=== PATIENT | male | born 1960 | race Two or more races ===

== ENCOUNTER 2017-12-17 16:14 | Observation (INO) | payer OTHER ==
[~2017-12-17] VITALS: Ht 157.5 cm; Wt 45.4 kg
[~2017-12-17 16:14] MED LIST: DULA1INJ SC
[2017-12-17] MEDS ORDERED: SODIUM CHLORIDE 0.9% 1,000 ML IVB ONE (17:36)
[2017-12-17 17:44] LABS: Basophils # (auto) 0 uL; Basophils % (auto) 0.7 % (0.0-2.0); Eosinophils # (auto) 0.1 uL; Eosinophils % (auto) 1.2 % (0.0-7.0); Hematocrit 40.2 % (41.0-53.0); Hemoglobin 13.7 g/dL (13.5-17.5); Lymphocytes # (auto) 1.7 uL; Lymphocytes % (auto) 34.8 % (10.0-50.0); Mean Corpuscular Hemoglobin 28.8 pg (28.0-32.0); Mean Corpuscular Hgb Conc. 34.2 g/dL (32.0-36.0); Mean Corpuscular Volume 84.4 fL (80.0-100.0); Monocytes # (auto) 0.4 uL; Monocytes % (auto) 8.5 % (0.0-12.0); Neutrophils # (auto) 2.8 uL; Neutrophils % (auto) 54.8 % (37.0-80.0); Nucleated Red Blood Cells % 0.2 %; Platelet Count (auto) 208 10^3/uL (140-450); Red Blood Cells 4.76 10^6/uL (4.5-5.90); Red Cell Distribution Width 14.1 % (11.8-14.3)
[2017-12-17 18:14] LABS: Partial Thromboplastin Time 27.5 sec (23.78-33.04); Prothrombin Time 10.7 sec (9.27-12.13)
[2017-12-17 18:24] LABS: Albumin 3.5 g/dL (3.4-5.0); BUN/Creatinine Ratio 21.8; Bilirubin, Total 0.4 mg/dL (0.2-1.0); Calcium 8.9 mg/dL (8.5-10.1); Potassium 4.4 mmol/L (3.5-5.1); Total Protein 7.5 g/dL (6.4-8.2)
[2017-12-17] MEDS ORDERED: InsuLIN REG 1unit/0.01ml Soln (100units/ml) IV ONE (21:15)
[2017-12-17 22:01] VITALS: BP 107/74
[2017-12-17] MEDS ORDERED: ACETAMINOPHEN 325 MG TAB PO ONE (23:00)
== END 2017-12-17 22:42 | disposition home or self-care (01) | DRG 639 ==
LOC: EDBD → ER 16:14 → OVERFLOW 16:15 → ER 22:42
PROVIDERS: ADMIT Family Medicine; ATTEND Family Medicine
DX: E10.65 Type 1 diabetes mellitus with hyperglycemia (principal); I10 Essential (primary) hypertension; E78.5 Hyperlipidemia, unspecified; Z91.19 Patient's noncompliance with other medical treatment and regimen
CPT/HCPCS: 36415; 70450; 71045; 80053; 82962; 83735; 84484; 85025; 85610; 85730; 93005; 96360; 96372; 99285; G0378; J1815; J7030

== ENCOUNTER 2018-01-26 18:37 | Emergency (ER) | payer OTHER ==
[~2018-01-26] VITALS: Ht 157.5 cm; Wt 46.3 kg
[2018-01-26 19:41] LABS: Basophils # (auto) 0 uL; Basophils % (auto) 0.6 % (0.0-2.0); Eosinophils # (auto) 0 uL; Eosinophils % (auto) 0.8 % (0.0-7.0); Hematocrit 35.6 % (41.0-53.0); Hemoglobin 11.9 g/dL (13.5-17.5); Lymphocytes # (auto) 1.8 uL; Lymphocytes % (auto) 33.3 % (10.0-50.0); Mean Corpuscular Hemoglobin 28.3 pg (28.0-32.0); Mean Corpuscular Hgb Conc. 33.5 g/dL (32.0-36.0); Mean Corpuscular Volume 84.5 fL (80.0-100.0); Monocytes # (auto) 0.4 uL; Neutrophils # (auto) 3.1 uL; Neutrophils % (auto) 57.3 % (37.0-80.0); Nucleated Red Blood Cells % 0.1 %; Platelet Count (auto) 225 10^3/uL (140-450); Red Blood Cells 4.21 10^6/uL (4.5-5.90); Red Cell Distribution Width 14.5 % (11.8-14.3); White Blood Cell 5.4 10^3/uL (4.4-10.8)
[2018-01-26 19:50] LABS: Albumin 3.2 g/dL (3.4-5.0); BUN/Creatinine Ratio 29.7; Calcium 8.7 mg/dL (8.5-10.1); Potassium 4.4 mmol/L (3.5-5.1)
[2018-01-26 19:52] LABS: Bilirubin, Total 0.2 mg/dL (0.2-1.0); Total Protein 8.2 g/dL (6.4-8.2)
[2018-01-26] MEDS ORDERED: VANCOMYCIN 1GM/250ML 250 ML IV ONE (22:30)
[2018-01-26] MEDS ORDERED: SODIUM CHLORIDE 0.9% 1,000 ML IV ONE (22:30)
[2018-01-26] MEDS ORDERED: cefTRIAXone 1GM/10ml IVPUSH 10 ML IV ONE (22:30)
[2018-01-26] MEDS ORDERED: HYDROmorphone HCL 2 MG/ML VL IV ONE (22:30)
[2018-01-26] MEDS ORDERED: ONDANSETRON HCL 4 MG/2 ML VIAL IV ONE (22:30)
[2018-01-26] MEDS ORDERED: InsuLIN REG 1unit/0.01ml Soln (100units/ml) IV ONE (22:30)
[2018-01-27 02:11] VITALS: BP 111/80
== END 2018-01-27 00:14 | disposition short-term general hospital (02) ==
LOC: ER 18:37
DX: E11.52 Type 2 diabetes mellitus with diabetic peripheral angiopathy with gangrene (principal); A48.0 Gas gangrene; E11.65 Type 2 diabetes mellitus with hyperglycemia; N28.9 Disorder of kidney and ureter, unspecified; E87.1 Hypo-osmolality and hyponatremia; E78.5 Hyperlipidemia, unspecified; I10 Essential (primary) hypertension
CPT/HCPCS: 36415; 73630; 73700; 80053; 82962; 85025; 87040; 93005; 96365; 96366; 96375; 99285; J0696; J1170; J1815; J2405; J3370

== ENCOUNTER 2020-07-21 12:24 | Inpatient (IN) | payer OTHER ==
[~2020-07-21] VITALS: Ht 157.5 cm; Wt 62.0 kg
[2020-07-21] MEDS ORDERED: SODIUM CHLORIDE 0.9% 1,000 ML IVB ONE (13:30)
[2020-07-21 13:53] LABS: Eosinophils # (auto) 0.1 10 ^3/uL (0-0.8); Red Cell Distribution Width 18.5 % (11.8-14.3); White Blood Cell 6.1 10^3/uL (4.4-10.8)
[2020-07-21 13:55] LABS: Basophils # (auto) 0.1 10 ^3/uL (0-0.2); Basophils % (auto) 0.9 % (0.0-2.0); Eosinophils % (auto) 1.4 % (0.0-7.0); Hemoglobin 8.7 g/dL (13.5-17.5); Lymphocytes # (auto) 1.7 10 ^3/uL (0.4-5.4); Lymphocytes % (auto) 28.7 % (10.0-50.0); Mean Corpuscular Hemoglobin 25.5 pg (28.0-32.0); Mean Corpuscular Hgb Conc. 32.1 g/dL (32.0-36.0); Mean Corpuscular Volume 79.6 fL (80.0-100.0); Monocytes # (auto) 0.5 10 ^3/uL (0-1.3); Monocytes % (auto) 7.6 % (0.0-12.0); Neutrophils # (auto) 3.7 10 ^3/uL (1.6-8.6); Neutrophils % (auto) 61.4 % (37.0-80.0); Nucleated Red Blood Cells % 0.1 %
[2020-07-21 14:08] LABS: INR 1.2 (0.9-1.15); Partial Thromboplastin Time 31.6 sec (23.0-31.2)
[2020-07-21 14:10] LABS: Albumin 2.7 g/dL (3.4-5.0); Calcium 8.7 mg/dL (8.5-10.1); Potassium 3.8 mmol/L (3.5-5.1)
[2020-07-21 14:16] LABS: BUN/Creatinine Ratio 30.4; Bilirubin, Total 0.4 mg/dL (0.2-1.0); Total Protein 7.5 g/dL (6.4-8.2)
[2020-07-21 14:35] LABS: Magnesium 2.2 mg/dL (1.6-2.6)
[2020-07-21] MEDS ORDERED: AZITHROMYCIN 500MG/ 250ML 250 ML IV ONE (14:45)
[2020-07-21 15:28] LABS: Urine Bacteria NONE SEEN /hpf (None Seen); Urine Blood Negative /uL (Negative); Urine Specific Gravity 1.031 (1.001-1.035); Urine WBC <1 /hpf (0 - 3)
[2020-07-21] MEDS ORDERED: DEXTROSE (50%) 50ML SYRG IV PRN (16:30)
[2020-07-21] MEDS ORDERED: VANCOMYCIN PER PHARMACY 0 MG IV SCH (16:30)
[2020-07-21] MEDS ORDERED: NITROGLYCERIN 0.4 MG SL TAB SL PRN (16:30)
[2020-07-21] MEDS ORDERED: MORPHINE SULFATE INJECTION 2 MG/ML SYRG IV PRN (16:30)
[2020-07-21] MEDS ORDERED: IOPAMIDOL 76 % (ISOVUE-370) 100ML BTL IV ONE (16:36)
[2020-07-21] MEDS ORDERED: VANCOMYCIN 1GM/250ML 250 ML IV ONE (16:45)
[2020-07-21] MEDS: ACCU-CHEK COMFORT CURVE STRIP VI SCH ×2 (18:14→22:00)
[2020-07-21] MEDS: ENOXAPARIN SOD 40 MG/0.4 ML SYRINGE SC SCH (18:22)
[2020-07-21] MEDS: InsuLIN REG 1unit/0.01ml Soln (100units/ml) SC SCH ×2 (18:23→22:00)
[2020-07-21] MEDS: ALBUTEROL SULF 2.5 MG/0.5ML(0.5%) NEB SOLN NEB SCH (18:25)
[2020-07-21] MEDS: IPRATROPIUM BROM 0.5 MG/2.5ML INH SOL NEB SCH (18:25)
[2020-07-21 18:53] VITALS: BP 105/73
[2020-07-21] MEDS: MORPHINE SULFATE INJECTION 2 MG/ML SYRG IV PRN (18:58)
[2020-07-21] MEDS: ONDANSETRON HCL 4 MG/2 ML VIAL IV PRN (18:58)
[2020-07-21 19:37] VITALS: BP 105/73
[2020-07-21 20:00] VITALS: BP 116/80
[2020-07-21 21:41] VITALS: BP 115/78
[2020-07-21] MEDS: VANCOMYCIN 750mg/250ml 250 ML IV SCH (22:44)
[2020-07-22] MEDS: MORPHINE SULFATE INJECTION 2 MG/ML SYRG IV PRN ×3 (00:06→13:50)
[2020-07-22] MEDS: ONDANSETRON HCL 4 MG/2 ML VIAL IV PRN ×2 (00:06→04:35)
[2020-07-22 00:50] VITALS: BP 115/78
[2020-07-22] MEDS ORDERED: METF-370 PO (01:44)
[2020-07-22 04:59] VITALS: BP 117/95
[2020-07-22] MEDS: IPRATROPIUM BROM 0.5 MG/2.5ML INH SOL NEB SCH ×3 (06:00→19:18)
[2020-07-22] MEDS: ALBUTEROL SULF 2.5 MG/0.5ML(0.5%) NEB SOLN NEB SCH ×3 (06:00→19:18)
[2020-07-22 06:15] LABS: Eosinophils # (auto) 0 10 ^3/uL (0-0.8); Hematocrit 27.6 % (41.0-53.0); Lymphocytes # (auto) 1.4 10 ^3/uL (0.4-5.4); Monocytes # (auto) 0.6 10 ^3/uL (0-1.3); Neutrophils # (auto) 5.6 10 ^3/uL (1.6-8.6); Neutrophils % (auto) 73.3 % (37.0-80.0)
[2020-07-22 06:18] LABS: Basophils # (auto) 0.1 10 ^3/uL (0-0.2); Basophils % (auto) 0.7 % (0.0-2.0); Eosinophils % (auto) 0.2 % (0.0-7.0); Lymphocytes % (auto) 18.4 % (10.0-50.0); Mean Corpuscular Hemoglobin 25.8 pg (28.0-32.0); Mean Corpuscular Hgb Conc. 32.5 g/dL (32.0-36.0); Mean Corpuscular Volume 79.5 fL (80.0-100.0); Monocytes % (auto) 7.4 % (0.0-12.0); Nucleated Red Blood Cells % 0.1 %; Red Blood Cells 3.48 10^6/uL (4.5-5.90); Red Cell Distribution Width 18.4 % (11.8-14.3); White Blood Cell 7.6 10^3/uL (4.4-10.8)
[2020-07-22 06:21] LABS: BUN/Creatinine Ratio 28.4; Calcium 8.8 mg/dL (8.5-10.1); Potassium 4.2 mmol/L (3.5-5.1)
[2020-07-22] MEDS: ACCU-CHEK COMFORT CURVE STRIP VI SCH ×4 (06:37→21:16)
[2020-07-22] MEDS: InsuLIN REG 1unit/0.01ml Soln (100units/ml) SC SCH ×4 (06:38→21:16)
[2020-07-22 09:00] VITALS: BP 138/84
[2020-07-22] MEDS: VANCOMYCIN 750mg/250ml 250 ML IV SCH ×2 (09:35→21:11)
[2020-07-22] MEDS: ENOXAPARIN SOD 40 MG/0.4 ML SYRINGE SC SCH (09:35)
[2020-07-22] MEDS ORDERED: FUROSEMIDE 20 MG/2 ML VIAL IV ONE (11:00)
[2020-07-22 16:31] VITALS: BP 133/86
[2020-07-22] MEDS: PIPERACILLIN-TAZOB 3.375GM 100 ML IV SCH ×2 (17:51→23:11)
[2020-07-22] MEDS: ACETAMINOPHEN 500 MG TAB PO PRN (19:19)
[2020-07-22 22:00] VITALS: BP 134/86
[2020-07-23] MEDS: ACETAMINOPHEN 500 MG TAB PO PRN (03:40)
[2020-07-23] MEDS: PIPERACILLIN-TAZOB 3.375GM 100 ML IV SCH ×4 (04:53→23:35)
[2020-07-23 05:16] VITALS: BP 138/84
[2020-07-23 05:29] LABS: Eosinophils # (auto) 0.1 10 ^3/uL (0-0.8); Mean Corpuscular Volume 78.5 fL (80.0-100.0); Monocytes # (auto) 0.5 10 ^3/uL (0-1.3); Red Blood Cells 3.37 10^6/uL (4.5-5.90)
[2020-07-23 05:31] LABS: Basophils # (auto) 0.1 10 ^3/uL (0-0.2); Basophils % (auto) 0.9 % (0.0-2.0); Eosinophils % (auto) 1.3 % (0.0-7.0); Hematocrit 26.4 % (41.0-53.0); Hemoglobin 8.8 g/dL (13.5-17.5); Lymphocytes # (auto) 1.2 10 ^3/uL (0.4-5.4); Mean Corpuscular Hemoglobin 26.2 pg (28.0-32.0); Mean Corpuscular Hgb Conc. 33.4 g/dL (32.0-36.0); Monocytes % (auto) 9.2 % (0.0-12.0); Neutrophils # (auto) 3.9 10 ^3/uL (1.6-8.6); Neutrophils % (auto) 67.6 % (37.0-80.0); Nucleated Red Blood Cells % 0.1 %; Red Cell Distribution Width 18.1 % (11.8-14.3); White Blood Cell 5.8 10^3/uL (4.4-10.8)
[2020-07-23] MEDS: InsuLIN REG 1unit/0.01ml Soln (100units/ml) SC SCH ×4 (05:31→22:12)
[2020-07-23] MEDS: ACCU-CHEK COMFORT CURVE STRIP VI SCH ×4 (05:31→22:12)
[2020-07-23 05:43] LABS: BUN/Creatinine Ratio 31.4; Calcium 8.9 mg/dL (8.5-10.1); Potassium 3.6 mmol/L (3.5-5.1)
[2020-07-23] MEDS: IPRATROPIUM BROM 0.5 MG/2.5ML INH SOL NEB SCH ×3 (06:55→18:21)
[2020-07-23] MEDS: ALBUTEROL SULF 2.5 MG/0.5ML(0.5%) NEB SOLN NEB SCH ×3 (06:55→18:21)
[2020-07-23] MEDS: ENOXAPARIN SOD 40 MG/0.4 ML SYRINGE SC SCH (10:00)
[2020-07-23] MEDS: HYDROcodone-ACET 5/325MG TAB PO PRN ×2 (10:37→18:30)
[2020-07-23] MEDS: VANCOMYCIN 1GM/250ML 250 ML IV SCH ×2 (10:59→20:34)
[2020-07-23] MEDS: FUROSEMIDE 20 MG/2 ML VIAL IV SCH (10:59)
[2020-07-23] MEDS ORDERED: LISINOPRIL 5 MG TAB PO ONE (11:00)
[2020-07-23] MEDS ORDERED: CARVEDILOL 3.125 MG TAB PO ONE (11:00)
[2020-07-23] MEDS ORDERED: ASPirin 81 mg TAB PO ONE (11:00)
[2020-07-23 22:00] VITALS: BP 132/88
[2020-07-23] MEDS: ATORVASTATIN 20 MG TAB PO SCH (22:12)
[2020-07-23] MEDS: CARVEDILOL 3.125 MG TAB PO SCH (22:33)
[2020-07-24] MEDS: ALBUTEROL SULF 2.5 MG/0.5ML(0.5%) NEB SOLN NEB SCH ×3 (04:08→18:09)
[2020-07-24] MEDS: IPRATROPIUM BROM 0.5 MG/2.5ML INH SOL NEB SCH ×3 (04:08→18:09)
[2020-07-24] MEDS: PIPERACILLIN-TAZOB 3.375GM 100 ML IV SCH ×4 (04:58→23:23)
[2020-07-24] MEDS: InsuLIN REG 1unit/0.01ml Soln (100units/ml) SC SCH ×4 (05:37→20:37)
[2020-07-24] MEDS: ACCU-CHEK COMFORT CURVE STRIP VI SCH ×4 (05:37→20:37)
[2020-07-24] MEDS: HYDROcodone-ACET 5/325MG TAB PO PRN ×2 (05:42→22:17)
[2020-07-24 06:42] LABS: Basophils # (auto) 0.1 10 ^3/uL (0-0.2); Basophils % (auto) 0.9 % (0.0-2.0); Eosinophils # (auto) 0.2 10 ^3/uL (0-0.8); Monocytes # (auto) 0.6 10 ^3/uL (0-1.3); Nucleated Red Blood Cells % 0.1 %
[2020-07-24 06:44] LABS: Eosinophils % (auto) 3.2 % (0.0-7.0); Hematocrit 26.8 % (41.0-53.0); Hemoglobin 8.7 g/dL (13.5-17.5); Lymphocytes # (auto) 1.6 10 ^3/uL (0.4-5.4); Lymphocytes % (auto) 23.4 % (10.0-50.0); Mean Corpuscular Hemoglobin 25.6 pg (28.0-32.0); Mean Corpuscular Hgb Conc. 32.6 g/dL (32.0-36.0); Mean Corpuscular Volume 78.4 fL (80.0-100.0); Monocytes % (auto) 8.5 % (0.0-12.0); Neutrophils # (auto) 4.3 10 ^3/uL (1.6-8.6); Red Blood Cells 3.41 10^6/uL (4.5-5.90); Red Cell Distribution Width 18.5 % (11.8-14.3); White Blood Cell 6.8 10^3/uL (4.4-10.8)
[2020-07-24 07:00] VITALS: BP 147/87
[2020-07-24 08:36] VITALS: BP 125/83
[2020-07-24] MEDS: ENOXAPARIN SOD 40 MG/0.4 ML SYRINGE SC SCH (09:28)
[2020-07-24] MEDS: VANCOMYCIN 1GM/250ML 250 ML IV SCH ×2 (09:58→20:45)
[2020-07-24] MEDS: FUROSEMIDE 20 MG/2 ML VIAL IV SCH (09:58)
[2020-07-24] MEDS: LISINOPRIL 5 MG TAB PO SCH (09:59)
[2020-07-24] MEDS: ASPirin 81 mg TAB PO SCH (10:00)
[2020-07-24] MEDS: CARVEDILOL 3.125 MG TAB PO SCH ×2 (10:01→22:09)
[2020-07-24] MEDS: guaiFENesin-DM 100/10mg/5ml SYR PO PRN (10:41)
[2020-07-24] MEDS ORDERED: fentaNYL CITRATE 100 MCG/2 ML VL IV ONE (12:15)
[2020-07-24] MEDS ORDERED: diphenhdrAMINE HCL 50 MG/1 ML VL IV ONE (12:15)
[2020-07-24] MEDS ORDERED: MIDAZOLAM HCL 2MG/2ML 2ml VIAL (1mg/ml) IV ONE (12:15)
[2020-07-24] MEDS ORDERED: ONDANSETRON HCL 4 MG/2 ML VIAL IV ONE (12:30)
[2020-07-24] MEDS ORDERED: LIDOCAINE VISCOUS 2% 15ML UD ONE (12:43)
[2020-07-24 12:44] VITALS: BP 131/87
[2020-07-24 16:43] VITALS: BP 119/76
[2020-07-24] MEDS: ATORVASTATIN 20 MG TAB PO SCH (20:45)
[2020-07-24] MEDS: DAKINS QUARTER STR 0.125% (NaHypochlorite) 473 ML TOPICAL SOL TOP SCH (20:45)
[2020-07-24 21:06] VITALS: BP 119/76
[2020-07-24 22:00] VITALS: BP 130/77
[2020-07-25] MEDS: ALBUTEROL SULF 2.5 MG/0.5ML(0.5%) NEB SOLN NEB SCH ×4 (02:20→19:11)
[2020-07-25] MEDS: IPRATROPIUM BROM 0.5 MG/2.5ML INH SOL NEB SCH ×4 (02:21→19:11)
[2020-07-25 05:29] VITALS: BP 138/88
[2020-07-25 06:10] LABS: Basophils # (auto) 0.1 10 ^3/uL (0-0.2); Basophils % (auto) 0.9 % (0.0-2.0); Eosinophils # (auto) 0.3 10 ^3/uL (0-0.8); Lymphocytes # (auto) 1.7 10 ^3/uL (0.4-5.4); Monocytes # (auto) 0.6 10 ^3/uL (0-1.3)
[2020-07-25 06:12] LABS: Eosinophils % (auto) 5.1 % (0.0-7.0); Hematocrit 25.9 % (41.0-53.0); Hemoglobin 8.4 g/dL (13.5-17.5); Lymphocytes % (auto) 28.4 % (10.0-50.0); Mean Corpuscular Hemoglobin 25.4 pg (28.0-32.0); Mean Corpuscular Hgb Conc. 32.5 g/dL (32.0-36.0); Mean Corpuscular Volume 78.1 fL (80.0-100.0); Monocytes % (auto) 10.2 % (0.0-12.0); Neutrophils # (auto) 3.3 10 ^3/uL (1.6-8.6); Neutrophils % (auto) 55.4 % (37.0-80.0); Nucleated Red Blood Cells % 0.1 %; Red Blood Cells 3.32 10^6/uL (4.5-5.90); Red Cell Distribution Width 18.3 % (11.8-14.3); White Blood Cell 5.9 10^3/uL (4.4-10.8)
[2020-07-25] MEDS: ACCU-CHEK COMFORT CURVE STRIP VI SCH ×4 (06:14→22:06)
[2020-07-25] MEDS: InsuLIN REG 1unit/0.01ml Soln (100units/ml) SC SCH ×4 (06:18→22:00)
[2020-07-25] MEDS: PIPERACILLIN-TAZOB 3.375GM 100 ML IV SCH ×4 (06:19→23:05)
[2020-07-25 06:20] LABS: INR 1.28 (0.9-1.15)
[2020-07-25 06:23] LABS: Potassium 3.8 mmol/L (3.5-5.1)
[2020-07-25 06:32] LABS: BUN/Creatinine Ratio 20.3; Calcium 8.8 mg/dL (8.5-10.1)
[2020-07-25] MEDS ORDERED: IODIXANOL 320MG/ML 100ML BTL IV ONE ×2 (07:37→09:20)
[2020-07-25] MEDS ORDERED: LIDOCAINE 2%HCL (LOCAL ANESTH.) INJ 20ML MDV ONE (07:37)
[2020-07-25] MEDS ORDERED: ANGIOMAX 250 MG VIAL IV ONE ×2 (07:54→09:56)
[2020-07-25] MEDS ORDERED: MIDAZOLAM HCL 2MG/2ML 2ml VIAL (1mg/ml) ONE (07:55)
[2020-07-25] MEDS ORDERED: fentaNYL CITRATE 100 MCG/2 ML VL ONE (07:55)
[2020-07-25] MEDS ORDERED: SODIUM CHL 0.9% 50 ML ONE ×2 (07:55→09:56)
[2020-07-25] MEDS: ASPirin 81 mg TAB PO SCH (10:00)
[2020-07-25] MEDS: ENOXAPARIN SOD 40 MG/0.4 ML SYRINGE SC SCH (10:00)
[2020-07-25] MEDS ORDERED: hydrALAZINE HCL 20 MG/ML VL ONE (10:36)
[2020-07-25] MEDS ORDERED: CLOPIDOGREL 300 MG TAB ONE (11:08)
[2020-07-25 13:00] VITALS: BP 146/94
[2020-07-25] MEDS ORDERED: ACETAMINOPHEN 500 MG TAB PO PRN (13:00)
[2020-07-25] MEDS ORDERED: ONDANSETRON HCL 4 MG/2 ML VIAL IV PRN (13:00)
[2020-07-25] MEDS: VANCOMYCIN 1GM/250ML 250 ML IV SCH ×2 (13:11→22:04)
[2020-07-25] MEDS: FUROSEMIDE 20 MG/2 ML VIAL IV SCH (13:11)
[2020-07-25] MEDS: LISINOPRIL 5 MG TAB PO SCH (13:12)
[2020-07-25] MEDS: CARVEDILOL 3.125 MG TAB PO SCH ×2 (13:12→22:05)
[2020-07-25] MEDS: DAKINS QUARTER STR 0.125% (NaHypochlorite) 473 ML TOPICAL SOL TOP SCH ×2 (13:12→22:06)
[2020-07-25] MEDS: SODIUM CHLOR 0.9% PF (SALINE LOCK) 10ML VIAL/SYR IV SCH ×2 (13:13→22:04)
[2020-07-25] MEDS: HYDROcodone-ACET 5/325MG TAB PO PRN (16:47)
[2020-07-25 17:00] VITALS: BP 131/89
[2020-07-25] MEDS: guaiFENesin-DM 100/10mg/5ml SYR PO PRN (17:19)
[2020-07-25 22:00] VITALS: BP 131/89
[2020-07-25] MEDS: ATORVASTATIN 20 MG TAB PO SCH (22:05)
[2020-07-26] MEDS: ALBUTEROL SULF 2.5 MG/0.5ML(0.5%) NEB SOLN NEB SCH ×4 (01:13→17:52)
[2020-07-26] MEDS: IPRATROPIUM BROM 0.5 MG/2.5ML INH SOL NEB SCH ×4 (01:14→17:52)
[2020-07-26] MEDS: PIPERACILLIN-TAZOB 3.375GM 100 ML IV SCH ×3 (05:21→17:57)
[2020-07-26] MEDS: SODIUM CHLOR 0.9% PF (SALINE LOCK) 10ML VIAL/SYR IV SCH ×3 (05:21→23:04)
[2020-07-26 05:27] VITALS: BP 138/84
[2020-07-26 05:46] LABS: Basophils # (auto) 0 10 ^3/uL (0-0.2); Eosinophils # (auto) 0.2 10 ^3/uL (0-0.8); Lymphocytes # (auto) 1.3 10 ^3/uL (0.4-5.4); Mean Corpuscular Hemoglobin 25.7 pg (28.0-32.0); Neutrophils # (auto) 3.4 10 ^3/uL (1.6-8.6); Red Blood Cells 3.51 10^6/uL (4.5-5.90); White Blood Cell 5.5 10^3/uL (4.4-10.8)
[2020-07-26 05:48] LABS: Basophils % (auto) 0.8 % (0.0-2.0); Eosinophils % (auto) 4.1 % (0.0-7.0); Hematocrit 27.3 % (41.0-53.0); Mean Corpuscular Hgb Conc. 33.1 g/dL (32.0-36.0); Mean Corpuscular Volume 77.6 fL (80.0-100.0); Monocytes # (auto) 0.5 10 ^3/uL (0-1.3); Monocytes % (auto) 9.9 % (0.0-12.0); Neutrophils % (auto) 62.2 % (37.0-80.0); Nucleated Red Blood Cells % 0.1 %; Red Cell Distribution Width 17.9 % (11.8-14.3)
[2020-07-26] MEDS: InsuLIN REG 1unit/0.01ml Soln (100units/ml) SC SCH ×4 (06:11→22:35)
[2020-07-26] MEDS: ACCU-CHEK COMFORT CURVE STRIP VI SCH ×4 (06:12→22:00)
[2020-07-26 06:13] LABS: Potassium 3.6 mmol/L (3.5-5.1)
[2020-07-26 06:19] LABS: Calcium 8.8 mg/dL (8.5-10.1)
[2020-07-26 08:00] VITALS: BP 150/81
[2020-07-26] MEDS: ASPirin 81 mg TAB PO SCH (10:00)
[2020-07-26] MEDS: DAKINS QUARTER STR 0.125% (NaHypochlorite) 473 ML TOPICAL SOL TOP SCH ×2 (10:00→22:00)
[2020-07-26] MEDS: ENOXAPARIN SOD 40 MG/0.4 ML SYRINGE SC SCH (10:00)
[2020-07-26] MEDS: VANCOMYCIN 1GM/250ML 250 ML IV SCH ×2 (10:04→23:03)
[2020-07-26] MEDS: FUROSEMIDE 20 MG/2 ML VIAL IV SCH (10:06)
[2020-07-26] MEDS: LISINOPRIL 5 MG TAB PO SCH (10:07)
[2020-07-26] MEDS: CARVEDILOL 3.125 MG TAB PO SCH ×2 (10:07→23:04)
[2020-07-26] MEDS ORDERED: ceFAZolin 1GM VL ONE ×2 (11:38→12:18)
[2020-07-26] MEDS ORDERED: NEOMYCIN-BACITRACIN-POLYM 15GM TOP OINT TOP ONE (11:38)
[2020-07-26] MEDS ORDERED: PHENYLEPHRINE HCL 10 MG/ML VL IV ONE (12:17)
[2020-07-26] MEDS ORDERED: SUCCINYLCHOLINE CHLORIDE 20 MG/ML 10ML VIAL IV ONE (12:17)
[2020-07-26] MEDS ORDERED: fentaNYL CITRATE 100 MCG/2 ML VL ONE (12:28)
[2020-07-26] MEDS ORDERED: MEPERIDINE HCL (50 MG/ML) 1 ML VIAL ONE (12:28)
[2020-07-26] MEDS ORDERED: MIDAZOLAM HCL 2MG/2ML 2ml VIAL (1mg/ml) ONE (12:29)
[2020-07-26] MEDS ORDERED: DexAMETHasone SOD PHOS 10MG/1ML VIAL INJ ONE (12:43)
[2020-07-26] MEDS ORDERED: ETOMIDATE (2MG/ML) 20ML VIAL IV ONE (12:43)
[2020-07-26] MEDS ORDERED: ceFAZolin 1GM/50ML 50 ML IV ONE (12:50)
[2020-07-26] MEDS ORDERED: MIDAZOLAM HCL 2MG/2ML 2ml VIAL (1mg/ml) IV PRN (14:00)
[2020-07-26] MEDS ORDERED: HYDROmorphone HCL 2 MG/ML VL IV PRN (14:00)
[2020-07-26] MEDS ORDERED: ONDANSETRON HCL 4 MG/2 ML VIAL IV PRN (14:00)
[2020-07-26] MEDS ORDERED: ePHEDrine SULFATE 50 MG/ML AMP IV PRN (14:00)
[2020-07-26] MEDS ORDERED: LABETALOL HCL 5 MG/ML 4ML SYRINGE IV PRN (14:00)
[2020-07-26] MEDS ORDERED: ACCU-CHEK COMFORT CURVE STRIP VI ONE (14:00)
[2020-07-26] MEDS ORDERED: MORPHINE SULFATE 4 MG/ML SYR/VIAL IV PRN (14:00)
[2020-07-26 17:00] VITALS: BP 142/72
[2020-07-26] MEDS: MORPHINE SULFATE INJECTION 2 MG/ML SYRG IV PRN (20:37)
[2020-07-26] MEDS ORDERED: ATORVASTATIN 20 MG TAB PO SCH (22:00)
[2020-07-26 22:07] VITALS: BP 116/71
[2020-07-27] MEDS: PIPERACILLIN-TAZOB 3.375GM 100 ML IV SCH ×4 (00:09→18:00)
[2020-07-27 05:16] VITALS: BP 116/72
[2020-07-27] MEDS: SODIUM CHLOR 0.9% PF (SALINE LOCK) 10ML VIAL/SYR IV SCH ×2 (05:43→14:00)
[2020-07-27 06:25] LABS: Basophils # (auto) 0 10 ^3/uL (0-0.2); Eosinophils # (auto) 0 10 ^3/uL (0-0.8); Hemoglobin 7.9 g/dL (13.5-17.5); Lymphocytes # (auto) 0.8 10 ^3/uL (0.4-5.4); Monocytes # (auto) 0.6 10 ^3/uL (0-1.3)
[2020-07-27 06:28] LABS: Basophils % (auto) 0.1 % (0.0-2.0); Hematocrit 23.8 % (41.0-53.0); Lymphocytes % (auto) 10.8 % (10.0-50.0); Mean Corpuscular Hemoglobin 25.6 pg (28.0-32.0); Mean Corpuscular Hgb Conc. 33.2 g/dL (32.0-36.0); Mean Corpuscular Volume 77.2 fL (80.0-100.0); Monocytes % (auto) 7.6 % (0.0-12.0); Neutrophils # (auto) 6.1 10 ^3/uL (1.6-8.6); Neutrophils % (auto) 81.5 % (37.0-80.0); Nucleated Red Blood Cells % 0.1 %; Red Blood Cells 3.08 10^6/uL (4.5-5.90); White Blood Cell 7.5 10^3/uL (4.4-10.8)
[2020-07-27 06:33] LABS: BUN/Creatinine Ratio 22.2; Calcium 8.5 mg/dL (8.5-10.1); Potassium 3.2 mmol/L (3.5-5.1)
[2020-07-27] MEDS: InsuLIN REG 1unit/0.01ml Soln (100units/ml) SC SCH ×3 (06:41→17:30)
[2020-07-27] MEDS: ACCU-CHEK COMFORT CURVE STRIP VI SCH ×3 (06:42→17:00)
[2020-07-27] MEDS: IPRATROPIUM BROM 0.5 MG/2.5ML INH SOL NEB SCH ×3 (06:50→18:00)
[2020-07-27] MEDS: ALBUTEROL SULF 2.5 MG/0.5ML(0.5%) NEB SOLN NEB SCH ×3 (06:50→18:00)
[2020-07-27 08:00] VITALS: BP 128/75
[2020-07-27 09:00] VITALS: BP 128/75
[2020-07-27] MEDS: ASPirin 81 mg TAB PO SCH (09:45)
[2020-07-27] MEDS: VANCOMYCIN 1GM/250ML 250 ML IV SCH (09:45)
[2020-07-27] MEDS: CARVEDILOL 3.125 MG TAB PO SCH (09:46)
[2020-07-27] MEDS: FUROSEMIDE 20 MG/2 ML VIAL IV SCH (09:47)
[2020-07-27] MEDS: LISINOPRIL 5 MG TAB PO SCH (09:48)
[2020-07-27] MEDS: DAKINS QUARTER STR 0.125% (NaHypochlorite) 473 ML TOPICAL SOL TOP SCH (10:00)
[2020-07-27] MEDS: ENOXAPARIN SOD 40 MG/0.4 ML SYRINGE SC SCH (10:00)
[2020-07-27] MEDS ORDERED: THROAT LOZENGES(CEPASTAT) MT ONE (12:00)
[2020-07-27] MEDS ORDERED: SENNA 8.6 MG TAB PO ONE (12:00)
[2020-07-27] MEDS ORDERED: POTASSIUM CHL 20 Meq TABLET PO ONE (12:45)
[2020-07-27 13:00] VITALS: BP 107/65
[2020-07-27 15:57] VITALS: BP 107/66
[2020-07-27 17:00] VITALS: BP 100/57
[2020-07-27] MEDS ORDERED: VANCOMYCIN 750mg/250ml 250 ML IV SCH (19:00)
== END 2020-07-27 18:00 | disposition home health service (06) | DRG 270 ==
LOC: EDBD → ER 12:24 → EDBD 12:25 → TELE 12:25 → TELE-EAST 18:31 → TELE-CENTR 07-22 13:14
PROVIDERS: ADMIT Nurse Practitioner Acute Care; ATTEND Internal Medicine
PROC: 0W9B3ZX Drainage of Left Pleural Cavity, Percutaneous Approach, Diagnostic (ICD-10-PCS; principal; 2020-07-23)
PROC: B245ZZ4 Ultrasonography of Left Heart, Transesophageal (ICD-10-PCS; 2020-07-24)
PROC: 04CK3ZZ Extirpation of Matter from Right Femoral Artery, Percutaneous Approach (ICD-10-PCS; 2020-07-25)
PROC: 047K3ZZ Dilation of Right Femoral Artery, Percutaneous Approach (ICD-10-PCS; 2020-07-25)
PROC: 047M3ZZ Dilation of Right Popliteal Artery, Percutaneous Approach (ICD-10-PCS; 2020-07-25)
PROC: 047T3ZZ Dilation of Right Peroneal Artery, Percutaneous Approach (ICD-10-PCS; 2020-07-25)
PROC: 047P3ZZ Dilation of Right Anterior Tibial Artery, Percutaneous Approach (ICD-10-PCS; 2020-07-25)
PROC: 04CM3ZZ Extirpation of Matter from Right Popliteal Artery, Percutaneous Approach (ICD-10-PCS; 2020-07-25)
PROC: 04CP3ZZ Extirpation of Matter from Right Anterior Tibial Artery, Percutaneous Approach (ICD-10-PCS; 2020-07-25)
PROC: 04CT3ZZ Extirpation of Matter from Right Peroneal Artery, Percutaneous Approach (ICD-10-PCS; 2020-07-25)
PROC: B41GYZZ Fluoroscopy of Left Lower Extremity Arteries using Other Contrast (ICD-10-PCS; 2020-07-25)
PROC: B41FYZZ Fluoroscopy of Right Lower Extremity Arteries using Other Contrast (ICD-10-PCS; 2020-07-25)
PROC: 0Y6M0Z0 Detachment at Right Foot, Complete, Open Approach (ICD-10-PCS; 2020-07-26)
PROC: 0W993ZZ Drainage of Right Pleural Cavity, Percutaneous Approach (ICD-10-PCS; 2020-07-26)
DX: I70.203 Unspecified atherosclerosis of native arteries of extremities, bilateral legs (principal); J96.01 Acute respiratory failure with hypoxia; I21.A1 Myocardial infarction type 2; I50.21 Acute systolic (congestive) heart failure; J18.9 Pneumonia, unspecified organism; J81.0 Acute pulmonary edema; M86.8X7 Other osteomyelitis, ankle and foot; J91.8 Pleural effusion in other conditions classified elsewhere; I42.9 Cardiomyopathy, unspecified; E11.621 Type 2 diabetes mellitus with foot ulcer; I11.0 Hypertensive heart disease with heart failure; Z89.421 Acquired absence of other right toe(s); Y95 Nosocomial condition; D50.9 Iron deficiency anemia, unspecified; I25.10 Atherosclerotic heart disease of native coronary artery without angina pectoris; D63.8 Anemia in other chronic diseases classified elsewhere; E11.69 Type 2 diabetes mellitus with other specified complication; I08.1 Rheumatic disorders of both mitral and tricuspid valves; I27.20 Pulmonary hypertension, unspecified; Z20.822 Contact with and (suspected) exposure to COVID-19; L97.519 Non-pressure chronic ulcer of other part of right foot with unspecified severity; Z79.4 Long term (current) use of insulin; Z82.49 Family history of ischemic heart disease and other diseases of the circulatory system; Z83.3 Family history of diabetes mellitus
CPT/HCPCS: 10022; 36415; 37225; 37229; 71045; 71275; 73630; 73700; 76604; 76700; 76942; 80048; 80053; 80061; 80202; 81001; 82565; 82962; 83036; 83605; 83735; 83880; 83986; 84484; 85025; 85379; 85610; 85730; 86850; 86900; 86901; 87040; 87070; 87075; 87077; 87081; 87186; 87205; 87426; 87804; 89051; 93005; 93306; 93312; 93925; 93970; 94640; 99152; 99153; C1769; G0378; J0330; J0690; J1100; J1815; J2250; J2405; J2543; Q9967

== ENCOUNTER 2020-08-10 14:54 | Inpatient (IN) | payer OTHER ==
[~2020-08-10] VITALS: Ht 157.5 cm; Wt 56.2 kg
[~2020-08-10 14:54] MED LIST changes: +METF-370 PO
[2020-08-10] MEDS ORDERED: SODIUM CHLORIDE 0.9% 1,000 ML IV ONE (15:30)
[2020-08-10 16:04] LABS: Basophils # (auto) 0.1 10 ^3/uL (0-0.2); Eosinophils # (auto) 0.2 10 ^3/uL (0-0.8); Hemoglobin 8.8 g/dL (13.5-17.5); Lymphocytes # (auto) 1.5 10 ^3/uL (0.4-5.4)
[2020-08-10 16:05] LABS: Basophils % (auto) 1.3 % (0.0-2.0); Eosinophils % (auto) 4.1 % (0.0-7.0); Hematocrit 27.8 % (41.0-53.0); Lymphocytes % (auto) 29.4 % (10.0-50.0); Mean Corpuscular Hemoglobin 23.9 pg (28.0-32.0); Mean Corpuscular Hgb Conc. 31.5 g/dL (32.0-36.0); Mean Corpuscular Volume 76.1 fL (80.0-100.0); Monocytes # (auto) 0.4 10 ^3/uL (0-1.3); Monocytes % (auto) 7.2 % (0.0-12.0); Neutrophils # (auto) 2.9 10 ^3/uL (1.6-8.6); Nucleated Red Blood Cells % 0.1 %; Platelet Count (auto) 342 10^3/uL (140-450); Red Blood Cells 3.66 10^6/uL (4.5-5.90)
[2020-08-10 16:25] LABS: BUN/Creatinine Ratio 21.8; Calcium 8.3 mg/dL (8.5-10.1); Potassium 3.3 mmol/L (3.5-5.1)
[2020-08-10 16:30] LABS: Albumin 2.7 g/dL (3.4-5.0); Bilirubin, Total 0.4 mg/dL (0.2-1.0); Total Protein 7.4 g/dL (6.4-8.2)
[2020-08-10] MEDS ORDERED: POTASSIUM EFFERVESENT TAB 25 MEQ PO ONE (16:45)
[2020-08-10] MEDS ORDERED: ENOXAPARIN SOD 60 MG/0.6 ML SYRINGE SC ONE (19:00)
[2020-08-10 19:33] LABS: INR 1.28 (0.9-1.15); Partial Thromboplastin Time 32.6 sec (23.0-31.2)
[2020-08-10] MEDS ORDERED: NITROGLYCERIN 0.4 MG SL TAB SL PRN (22:30)
[2020-08-10] MEDS ORDERED: MORPHINE SULF INJ 2 MG/ML SYRINGE 1ML IV PRN (22:30)
[2020-08-10] MEDS ORDERED: DEXTROSE (50%) 50ML SYRG IV ONE (22:30)
[2020-08-10] MEDS: ONDANSETRON HCL 4 MG/2 ML VIAL IV PRN (22:53)
[2020-08-10] MEDS: MORPHINE SULF INJ 2 MG/ML SYRINGE 1ML IV PRN (22:54)
[2020-08-10] MEDS ORDERED: POTASSIUM CHL 20 Meq TABLET PO ONE (23:00)
[2020-08-10] MEDS: ALBUMIN 25% 100 ML IV SCH (23:29)
[2020-08-10 23:40] VITALS: BP 146/97
[2020-08-11] VITALS (10 sets, daily range): BP systolic 124–156; BP diastolic 76–105
[2020-08-11] MEDS: ALBUTEROL SULF 2.5 MG/0.5ML(0.5%) NEB SOLN NEB SCH ×4 (00:02→19:14)
[2020-08-11] MEDS: IPRATROPIUM BROM 0.5 MG/2.5ML INH SOL NEB SCH ×4 (00:02→19:14)
[2020-08-11] MEDS: ONDANSETRON HCL 4 MG/2 ML VIAL IV PRN ×2 (05:32→12:22)
[2020-08-11] MEDS: InsuLIN REG 1unit/0.01ml Soln (100units/ml) SC SCH ×4 (07:00→22:29)
[2020-08-11] MEDS: FUROSEMIDE 40 MG/4 ML VIAL IV SCH ×3 (07:07→22:18)
[2020-08-11] MEDS: ACCU-CHEK COMFORT CURVE STRIP VI SCH ×4 (07:25→22:28)
[2020-08-11 08:31] LABS: Basophils # (auto) 0.1 10 ^3/uL (0-0.2); Eosinophils # (auto) 0.2 10 ^3/uL (0-0.8); Eosinophils % (auto) 3.9 % (0.0-7.0); Lymphocytes # (auto) 1.4 10 ^3/uL (0.4-5.4); Mean Corpuscular Hgb Conc. 31.8 g/dL (32.0-36.0); Monocytes # (auto) 0.4 10 ^3/uL (0-1.3); Neutrophils # (auto) 3.7 10 ^3/uL (1.6-8.6); Neutrophils % (auto) 63.2 % (37.0-80.0); Nucleated Red Blood Cells % 0.1 %
[2020-08-11 08:33] LABS: Hematocrit 26.5 % (41.0-53.0); Hemoglobin 8.4 g/dL (13.5-17.5); Lymphocytes % (auto) 24.6 % (10.0-50.0); Mean Corpuscular Volume 75.6 fL (80.0-100.0); Monocytes % (auto) 7.3 % (0.0-12.0); Platelet Count (auto) 307 10^3/uL (140-450); Red Cell Distribution Width 18.8 % (11.8-14.3); White Blood Cell 5.8 10^3/uL (4.4-10.8)
[2020-08-11 08:46] LABS: Albumin 3.2 g/dL (3.4-5.0); Calcium 8.6 mg/dL (8.5-10.1); Potassium 4.3 mmol/L (3.5-5.1)
[2020-08-11 08:53] LABS: BUN/Creatinine Ratio 25.5; Bilirubin, Total 0.5 mg/dL (0.2-1.0); Total Protein 7.7 g/dL (6.4-8.2)
[2020-08-11] MEDS: ALBUMIN 25% 100 ML IV SCH ×2 (09:25→15:05)
[2020-08-11] MEDS ORDERED: ENOXAPARIN SOD 40 MG/0.4 ML SYRINGE SC SCH (10:00)
[2020-08-11 11:39] LABS: Urine WBC None Seen /hpf (0 - 3)
[2020-08-11 11:48] LABS: Urine Bacteria NONE SEEN /hpf (None Seen); Urine Blood Negative /uL (Negative); Urine Hyaline Cast FEW /lpf (0 - 2); Urine Specific Gravity 1.006 (1.001-1.035)
[2020-08-11] MEDS: MORPHINE SULF INJ 2 MG/ML SYRINGE 1ML IV PRN (12:23)
[2020-08-11] MEDS ORDERED: FUROSEMIDE 20 MG/2 ML VIAL IV ONE (17:45)
[2020-08-12] MEDS: IPRATROPIUM BROM 0.5 MG/2.5ML INH SOL NEB SCH ×4 (00:58→18:59)
[2020-08-12] MEDS: ALBUTEROL SULF 2.5 MG/0.5ML(0.5%) NEB SOLN NEB SCH ×4 (00:58→18:59)
[2020-08-12 05:00] VITALS: BP 126/82
[2020-08-12] MEDS: FUROSEMIDE 40 MG/4 ML VIAL IV SCH ×3 (06:00→21:35)
[2020-08-12] MEDS: ACCU-CHEK COMFORT CURVE STRIP VI SCH ×4 (06:52→21:35)
[2020-08-12] MEDS: InsuLIN REG 1unit/0.01ml Soln (100units/ml) SC SCH ×4 (06:52→21:35)
[2020-08-12 08:44] VITALS: BP 134/85
[2020-08-12 12:39] VITALS: BP 129/80
[2020-08-12 16:56] VITALS: BP 135/82
[2020-08-12 22:00] VITALS: BP 148/94
[2020-08-13] MEDS: IPRATROPIUM BROM 0.5 MG/2.5ML INH SOL NEB SCH ×4 (01:03→18:39)
[2020-08-13] MEDS: ALBUTEROL SULF 2.5 MG/0.5ML(0.5%) NEB SOLN NEB SCH ×4 (01:03→18:39)
[2020-08-13 05:00] VITALS: BP 124/68
[2020-08-13] MEDS: FUROSEMIDE 40 MG/4 ML VIAL IV SCH ×2 (06:00→13:57)
[2020-08-13] MEDS: ACCU-CHEK COMFORT CURVE STRIP VI SCH ×3 (06:47→17:49)
[2020-08-13] MEDS: InsuLIN REG 1unit/0.01ml Soln (100units/ml) SC SCH ×3 (06:48→17:49)
[2020-08-13 08:04] VITALS: BP 136/83
[2020-08-13] MEDS ORDERED: FURO1TAB33 PO (08:14)
[2020-08-13] MEDS ORDERED: POTA1TAB4 PO (08:16)
[2020-08-13] MEDS ORDERED: METO25TA36 PO (08:16)
[2020-08-13] MEDS ORDERED: BENA10TA14 GT (08:16)
[2020-08-13] MEDS ORDERED: ALB5IS NEB (08:16)
[2020-08-13 08:56] VITALS: BP 136/83
[2020-08-13] MEDS ORDERED: BACITRACIN TOP OINT 1 UD PKG TOP SCH (10:00)
[2020-08-13 12:39] VITALS: BP 119/76
[2020-08-13 16:32] VITALS: BP 120/77
== END 2020-08-13 18:50 | disposition hospice, home (50) | DRG 291 ==
LOC: ER 14:54 → TELE 22:31 → INTOOBSV 22:31 → EDBD 22:31 → OBSVTOIN 22:31 → TELE-WESTW 23:44
PROVIDERS: ADMIT Internal Medicine; ATTEND Internal Medicine
PROC: 0W993ZZ Drainage of Right Pleural Cavity, Percutaneous Approach (ICD-10-PCS; principal; 2020-08-11)
PROC: 0W9B3ZZ Drainage of Left Pleural Cavity, Percutaneous Approach (ICD-10-PCS; 2020-08-12)
PROC: 0JH63XZ Insertion of Tunneled Vascular Access Device into Chest Subcutaneous Tissue and Fascia, Percutaneous Approach (ICD-10-PCS; 2020-08-12)
PROC: 0W9B30Z Drainage of Left Pleural Cavity with Drainage Device, Percutaneous Approach (ICD-10-PCS; 2020-08-12)
DX: I11.0 Hypertensive heart disease with heart failure (principal); J96.01 Acute respiratory failure with hypoxia; J98.11 Atelectasis; J91.8 Pleural effusion in other conditions classified elsewhere; J81.1 Chronic pulmonary edema; I50.43 Acute on chronic combined systolic (congestive) and diastolic (congestive) heart failure; I42.9 Cardiomyopathy, unspecified; D50.9 Iron deficiency anemia, unspecified; E87.6 Hypokalemia; I25.10 Atherosclerotic heart disease of native coronary artery without angina pectoris; Z20.822 Contact with and (suspected) exposure to COVID-19; E11.51 Type 2 diabetes mellitus with diabetic peripheral angiopathy without gangrene; E78.5 Hyperlipidemia, unspecified; Z82.49 Family history of ischemic heart disease and other diseases of the circulatory system; Z83.3 Family history of diabetes mellitus; Z87.01 Personal history of pneumonia (recurrent); Z91.14 Patient's other noncompliance with medication regimen; Z89.431 Acquired absence of right foot
CPT/HCPCS: 36415; 36600; 71045; 74176; 76604; 80053; 81001; 82805; 82962; 83690; 83880; 83986; 84484; 85025; 85610; 85730; 87205; 87426; 89051; 93005; 94640; 96365; 96372; G0378; J1815; J2405; P9047

== ENCOUNTER 2020-10-09 13:00 | Emergency (ER) | payer OTHER ==
[~2020-10-09] VITALS: Ht 157.5 cm; Wt 49.0 kg
[~2020-10-09 13:00] MED LIST changes: +ALB5IS NEB; +BENA10TA14 GT; +FURO1TAB33 PO; +METO25TA36 PO; +POTA1TAB4 PO
[2020-10-09 13:07] VITALS: BP 89/59
== END 2020-10-09 16:32 | disposition left against medical advice (07) ==
LOC: ER 13:00
DX: Z48.03 Encounter for change or removal of drains (principal); I10 Essential (primary) hypertension; E11.9 Type 2 diabetes mellitus without complications; E78.5 Hyperlipidemia, unspecified; Z79.899 Other long term (current) drug therapy
CPT/HCPCS: 71045

== ENCOUNTER 2020-10-17 10:11 | Emergency (ER) | payer OTHER ==
[~2020-10-17] VITALS: Ht 157.5 cm; Wt 49.9 kg
[2020-10-17 10:13] VITALS: BP 121/77
== END 2020-10-17 14:15 | disposition left against medical advice (07) ==
LOC: ER 10:11
DX: Z48.01 Encounter for change or removal of surgical wound dressing (principal); Z53.21 Procedure and treatment not carried out due to patient leaving prior to being seen by health care provider
CPT/HCPCS: 73700

== ENCOUNTER 2020-10-24 10:58 | Inpatient (IN) | payer OTHER ==
[~2020-10-24] VITALS: Ht 157.5 cm; Wt 56.4 kg
[2020-10-24 13:06] LABS: Basophils # (auto) 0.1 10 ^3/uL (0-0.2); Eosinophils # (auto) 0.1 10 ^3/uL (0-0.8); Lymphocytes # (auto) 1.8 10 ^3/uL (0.4-5.4); Neutrophils # (auto) 7.3 10 ^3/uL (1.6-8.6); White Blood Cell 9.6 10^3/uL (4.4-10.8)
[2020-10-24 13:08] LABS: Basophils % (auto) 0.6 % (0.0-2.0); Eosinophils % (auto) 1.2 % (0.0-7.0); Hematocrit 29.2 % (41.0-53.0); Lymphocytes % (auto) 19.2 % (10.0-50.0); Mean Corpuscular Hemoglobin 21.3 pg (28.0-32.0); Mean Corpuscular Hgb Conc. 30.9 g/dL (32.0-36.0); Monocytes # (auto) 0.3 10 ^3/uL (0-1.3); Monocytes % (auto) 3.3 % (0.0-12.0); Neutrophils % (auto) 75.7 % (37.0-80.0); Red Blood Cells 4.23 10^6/uL (4.5-5.90); Red Cell Distribution Width 19.2 % (11.8-14.3)
[2020-10-24 13:21] LABS: Albumin 2.7 g/dL (3.4-5.0); BUN/Creatinine Ratio 18.3; Calcium 9.1 mg/dL (8.5-10.1); Potassium 4.7 mmol/L (3.5-5.1)
[2020-10-24 13:23] LABS: Bilirubin, Total 0.3 mg/dL (0.2-1.0); Total Protein 9.1 g/dL (6.4-8.2)
[2020-10-24 13:23] LABS: Lactic Acid w/Reflex 2.4 mmol/L (0.4-2.0)
[2020-10-24] MEDS ORDERED: SODIUM CHLORIDE 0.9% 1,000 ML IVB ONE (14:30)
[2020-10-24] MEDS ORDERED: CLINDAMYCIN 600MG IV 50 ML IV ONE (14:30)
[2020-10-24 15:11] LABS: INR 1.19 (0.9-1.15); Partial Thromboplastin Time 34.6 sec (23.0-31.2)
[2020-10-24] MEDS ORDERED: cloNIDine HCL 0.1 MG TAB PO ONE (16:45)
[2020-10-24] MEDS ORDERED: NITROGLYCERIN 0.4 MG SL TAB SL PRN (18:30)
[2020-10-24] MEDS ORDERED: DEXTROSE (50%) 50ML SYRG IV PRN (18:30)
[2020-10-24] MEDS ORDERED: VANCOMYCIN PER PHARMACY 0 MG IV SCH (18:30)
[2020-10-24] MEDS: AMPICILLIN & SULBACTAM SODIUM 3 GM in SODIUM CHL 0.9% 100 ML IV SCH (18:30)
[2020-10-24] MEDS ORDERED: IOHEXOL 350 MG/ML 100ML IJ ONE ×2 (18:50)
[2020-10-24] MEDS: VANCOMYCIN 1GM/250ML 250 ML IV SCH (21:26)
[2020-10-24 21:30] VITALS: BP 128/71
[2020-10-24] MEDS: ACCU-CHEK COMFORT CURVE STRIP VI SCH (21:47)
[2020-10-24] MEDS: InsuLIN REG 1unit/0.01ml Soln (100units/ml) SC SCH (21:51)
[2020-10-24 22:10] VITALS: BP 116/85
[2020-10-24] MEDS ORDERED: DOCUSATE SOD 100 MG CAP PO PRN (22:15)
[2020-10-24] MEDS ORDERED: HYDROcodone-ACET 5/325MG TAB PO PRN (22:15)
[2020-10-24 23:23] VITALS: BP 128/71
[2020-10-25] MEDS: AMPICILLIN & SULBACTAM SODIUM 3 GM in SODIUM CHL 0.9% 100 ML IV SCH ×5 (00:09→18:08)
[2020-10-25] MEDS: ALBUTEROL SULF 2.5 MG/0.5ML(0.5%) NEB SOLN NEB SCH ×4 (00:18→18:27)
[2020-10-25] MEDS ORDERED: PNEUMOCOCCAL VACC POLYS 25 MCG/0.5 ML VIAL IM ONE (04:30)
[2020-10-25 05:00] VITALS: BP 117/76
[2020-10-25 05:48] LABS: Eosinophils # (auto) 0.1 10 ^3/uL (0-0.8); Monocytes # (auto) 0.4 10 ^3/uL (0-1.3); Neutrophils # (auto) 4.9 10 ^3/uL (1.6-8.6)
[2020-10-25 05:50] LABS: Basophils # (auto) 0.1 10 ^3/uL (0-0.2); Basophils % (auto) 0.7 % (0.0-2.0); Eosinophils % (auto) 1.5 % (0.0-7.0); Hematocrit 23.4 % (41.0-53.0); Hemoglobin 7.7 g/dL (13.5-17.5); Lymphocytes # (auto) 2.4 10 ^3/uL (0.4-5.4); Lymphocytes % (auto) 30.4 % (10.0-50.0); Mean Corpuscular Hemoglobin 22.3 pg (28.0-32.0); Mean Corpuscular Hgb Conc. 32.8 g/dL (32.0-36.0); Mean Corpuscular Volume 67.9 fL (80.0-100.0); Monocytes % (auto) 5.2 % (0.0-12.0); Neutrophils % (auto) 62.2 % (37.0-80.0); Red Blood Cells 3.45 10^6/uL (4.5-5.90); White Blood Cell 7.8 10^3/uL (4.4-10.8)
[2020-10-25 06:05] LABS: Albumin 2.2 g/dL (3.4-5.0); Calcium 8.4 mg/dL (8.5-10.1); Potassium 4.8 mmol/L (3.5-5.1)
[2020-10-25 06:08] LABS: BUN/Creatinine Ratio 21.8; Bilirubin, Total 0.3 mg/dL (0.2-1.0); Total Protein 7.4 g/dL (6.4-8.2)
[2020-10-25] MEDS: ACCU-CHEK COMFORT CURVE STRIP VI SCH ×4 (06:20→21:30)
[2020-10-25] MEDS: InsuLIN REG 1unit/0.01ml Soln (100units/ml) SC SCH ×4 (06:20→21:36)
[2020-10-25 09:00] VITALS: BP 111/73
[2020-10-25] MEDS: VANCOMYCIN 1GM/250ML 250 ML IV SCH ×2 (09:25→21:20)
[2020-10-25] MEDS: BENAZEPRIL HCL 2.5 MG PO SCH (09:29)
[2020-10-25] MEDS: METOPROLOL SUCCINATE XL 50 MG TAB PO SCH (09:30)
[2020-10-25] MEDS: ENOXAPARIN SOD 40 MG/0.4 ML SYRINGE SC SCH (09:31)
[2020-10-25] MEDS: HYDROcodone-ACET 5/325MG TAB PO PRN ×2 (09:32→18:22)
[2020-10-25 13:00] VITALS: BP 154/85
[2020-10-25 16:38] VITALS: BP 153/94
[2020-10-25] MEDS ORDERED: GABA300C10 PO (20:35)
[2020-10-25 21:45] VITALS: BP 147/93
[2020-10-26] VITALS (19 sets, daily range): BP systolic 112–177; BP diastolic 84–103
[2020-10-26] MEDS: ALBUTEROL SULF 2.5 MG/0.5ML(0.5%) NEB SOLN NEB SCH ×4 (00:32→18:21)
[2020-10-26] MEDS: AMPICILLIN & SULBACTAM SODIUM 3 GM in SODIUM CHL 0.9% 100 ML IV SCH ×4 (00:36→18:03)
[2020-10-26 01:38] LABS: Urine Bacteria FEW /hpf (None Seen); Urine Blood Negative /uL (Negative); Urine Specific Gravity 1.009 (1.001-1.035); Urine WBC <1 /hpf (0 - 3)
[2020-10-26 05:32] LABS: Basophils # (auto) 0.1 10 ^3/uL (0-0.2); Basophils % (auto) 0.8 % (0.0-2.0); Eosinophils # (auto) 0.1 10 ^3/uL (0-0.8); Eosinophils % (auto) 1.6 % (0.0-7.0); Hemoglobin 8.2 g/dL (13.5-17.5); Lymphocytes # (auto) 1.8 10 ^3/uL (0.4-5.4); Mean Corpuscular Hemoglobin 22.1 pg (28.0-32.0); Mean Corpuscular Hgb Conc. 32.9 g/dL (32.0-36.0); Mean Corpuscular Volume 67.3 fL (80.0-100.0); Monocytes # (auto) 0.5 10 ^3/uL (0-1.3); Monocytes % (auto) 6.7 % (0.0-12.0); Neutrophils # (auto) 5.4 10 ^3/uL (1.6-8.6); Neutrophils % (auto) 67.9 % (37.0-80.0); Red Blood Cells 3.72 10^6/uL (4.5-5.90); Red Cell Distribution Width 19.2 % (11.8-14.3)
[2020-10-26 05:53] LABS: Potassium 5.1 mmol/L (3.5-5.1)
[2020-10-26 05:57] LABS: BUN/Creatinine Ratio 22.6; Calcium 8.8 mg/dL (8.5-10.1)
[2020-10-26] MEDS: ACCU-CHEK COMFORT CURVE STRIP VI SCH ×4 (06:12→21:34)
[2020-10-26] MEDS: InsuLIN REG 1unit/0.01ml Soln (100units/ml) SC SCH ×4 (06:18→21:35)
[2020-10-26] MEDS ORDERED: INSU1INJ14 SC (07:12)
[2020-10-26] MEDS ORDERED: TETRACAINE 1% INJ 2 ML VIAL IJ ONE (07:27)
[2020-10-26] MEDS ORDERED: MORPHINE SULF PF 2 MG/2 ML SYRG ONE (07:30)
[2020-10-26] MEDS ORDERED: MIDAZOLAM HCL 2MG/2ML 2ml VIAL (1mg/ml) ONE (07:30)
[2020-10-26] MEDS ORDERED: fentaNYL CITRATE 100 MCG/2 ML VL ONE (07:30)
[2020-10-26] MEDS ORDERED: DexAMETHasone SOD PHOS 10MG/1ML VIAL INJ ONE (07:41)
[2020-10-26] MEDS ORDERED: PROPOFOL 10 MG/ML 20 ML IV ONE (07:45)
[2020-10-26] MEDS ORDERED: diphenhdrAMINE HCL 50 MG/1 ML VL ONE (07:57)
[2020-10-26] MEDS: VANCOMYCIN 1GM/250ML 250 ML IV SCH (08:00)
[2020-10-26] MEDS ORDERED: POVIDONE IODINE 10 % TOPICAL OINT 30GM TOP ONE (08:59)
[2020-10-26] MEDS ORDERED: MIDAZOLAM HCL 2MG/2ML 2ml VIAL (1mg/ml) IV PRN (09:30)
[2020-10-26] MEDS ORDERED: DexAMETHasone SOD PHOS 10MG/1ML VIAL INJ IV PRN (09:30)
[2020-10-26] MEDS ORDERED: NALOXONE HCL 0.4 MG/ML VIAL IV PRN (09:30)
[2020-10-26] MEDS ORDERED: ePHEDrine SULFATE 50 MG/ML AMP IV PRN (09:30)
[2020-10-26] MEDS ORDERED: LABETALOL HCL 5 MG/ML 4ML SYRINGE IV PRN (09:30)
[2020-10-26] MEDS ORDERED: HYDROmorphone HCL 2 MG/ML VL IV PRN (09:30)
[2020-10-26] MEDS ORDERED: hydrALAZINE HCL 20 MG/ML VL IV PRN (09:30)
[2020-10-26] MEDS ORDERED: diphenhdrAMINE HCL 50 MG/1 ML VL IV PRN (09:30)
[2020-10-26] MEDS: ENOXAPARIN SOD 40 MG/0.4 ML SYRINGE SC SCH (10:00)
[2020-10-26] MEDS: BENAZEPRIL HCL 2.5 MG PO SCH (10:00)
[2020-10-26] MEDS ORDERED: LIDOCAINE 1% HCL (LOCAL ANESTH.) INJ 20ML MDV IJ ONE (11:00)
[2020-10-26] MEDS: VANCOMYCIN 750mg/250ml 250 ML IV SCH ×2 (12:17→23:43)
[2020-10-26] MEDS: METOPROLOL SUCCINATE XL 50 MG TAB PO SCH (12:18)
[2020-10-26 16:05] LABS: Basophils # (auto) 0 10 ^3/uL (0-0.2); Basophils % (auto) 0.2 % (0.0-2.0); Eosinophils # (auto) 0 10 ^3/uL (0-0.8); Hemoglobin 7.4 g/dL (13.5-17.5); Lymphocytes # (auto) 0.5 10 ^3/uL (0.4-5.4); Monocytes # (auto) 0.1 10 ^3/uL (0-1.3); Neutrophils % (auto) 93.3 % (37.0-80.0)
[2020-10-26 16:08] LABS: Eosinophils % (auto) 0.1 % (0.0-7.0); Hematocrit 23.2 % (41.0-53.0); Lymphocytes % (auto) 5.6 % (10.0-50.0); Mean Corpuscular Hemoglobin 21.7 pg (28.0-32.0); Mean Corpuscular Volume 68.1 fL (80.0-100.0); Monocytes % (auto) 0.8 % (0.0-12.0); Neutrophils # (auto) 8.7 10 ^3/uL (1.6-8.6); Red Cell Distribution Width 19.5 % (11.8-14.3); White Blood Cell 9.3 10^3/uL (4.4-10.8)
[2020-10-26] MEDS: HYDROcodone-ACET 5/325MG TAB PO PRN (20:20)
[2020-10-26] MEDS: ONDANSETRON HCL 4 MG/2 ML VIAL IV PRN (23:47)
[2020-10-27] VITALS (19 sets, daily range): BP systolic 91–169; BP diastolic 58–94
[2020-10-27] MEDS: hydrALAZINE HCL 20 MG/ML VL IV PRN (00:05)
[2020-10-27] MEDS: ALBUTEROL SULF 2.5 MG/0.5ML(0.5%) NEB SOLN NEB SCH ×4 (00:07→18:38)
[2020-10-27] MEDS: AMPICILLIN & SULBACTAM SODIUM 3 GM in SODIUM CHL 0.9% 100 ML IV SCH ×4 (01:05→18:39)
[2020-10-27] MEDS: ACCU-CHEK COMFORT CURVE STRIP VI SCH ×4 (06:11→22:44)
[2020-10-27] MEDS: InsuLIN REG 1unit/0.01ml Soln (100units/ml) SC SCH ×4 (06:16→22:46)
[2020-10-27 07:55] LABS: Basophils # (auto) 0 10 ^3/uL (0-0.2); Eosinophils # (auto) 0 10 ^3/uL (0-0.8); Monocytes # (auto) 0.6 10 ^3/uL (0-1.3)
[2020-10-27 07:58] LABS: Basophils % (auto) 0.1 % (0.0-2.0); Hematocrit 20.4 % (41.0-53.0); Lymphocytes # (auto) 1.7 10 ^3/uL (0.4-5.4); Lymphocytes % (auto) 14.7 % (10.0-50.0); Mean Corpuscular Hemoglobin 21.7 pg (28.0-32.0); Mean Corpuscular Hgb Conc. 31.7 g/dL (32.0-36.0); Mean Corpuscular Volume 68.5 fL (80.0-100.0); Monocytes % (auto) 4.7 % (0.0-12.0); Neutrophils # (auto) 9.5 10 ^3/uL (1.6-8.6); Neutrophils % (auto) 80.5 % (37.0-80.0); Nucleated Red Blood Cells % 0.1 %; Red Blood Cells 2.98 10^6/uL (4.5-5.90); Red Cell Distribution Width 19.2 % (11.8-14.3); White Blood Cell 11.9 10^3/uL (4.4-10.8)
[2020-10-27 08:07] LABS: BUN/Creatinine Ratio 21.4; Calcium 8.6 mg/dL (8.5-10.1); Potassium 4.5 mmol/L (3.5-5.1)
[2020-10-27] MEDS: ONDANSETRON HCL 4 MG/2 ML VIAL IV PRN (08:19)
[2020-10-27 08:44] LABS: Hemoglobin 6.5 g/dL (13.5-17.5)
[2020-10-27] MEDS: BENAZEPRIL HCL 2.5 MG PO SCH (10:00)
[2020-10-27] MEDS: METOPROLOL SUCCINATE XL 50 MG TAB PO SCH (10:50)
[2020-10-27] MEDS: HYDROcodone-ACET 5/325MG TAB PO PRN ×2 (11:35→17:57)
[2020-10-27] MEDS: VANCOMYCIN 750mg/250ml 250 ML IV SCH (12:18)
[2020-10-27] MEDS ORDERED: chlorproMAZINE HCL 25 MG TAB PO ONE (15:45)
[2020-10-27 21:03] LABS: Hematocrit 25.8 % (41.0-53.0); Hemoglobin 8.7 g/dL (13.5-17.5)
[2020-10-28] MEDS: VANCOMYCIN 750mg/250ml 250 ML IV SCH ×2 (00:30→18:31)
[2020-10-28] MEDS: AMPICILLIN & SULBACTAM SODIUM 3 GM in SODIUM CHL 0.9% 100 ML IV SCH ×2 (01:05→06:28)
[2020-10-28 05:07] VITALS: BP 138/97
[2020-10-28] MEDS: ACCU-CHEK COMFORT CURVE STRIP VI SCH ×4 (06:43→21:52)
[2020-10-28] MEDS: InsuLIN REG 1unit/0.01ml Soln (100units/ml) SC SCH ×4 (06:48→21:54)
[2020-10-28] MEDS: ALBUTEROL SULF 2.5 MG/0.5ML(0.5%) NEB SOLN NEB SCH ×5 (07:06→23:17)
[2020-10-28 08:16] LABS: Basophils # (auto) 0 10 ^3/uL (0-0.2); Eosinophils # (auto) 0 10 ^3/uL (0-0.8); Eosinophils % (auto) 0.2 % (0.0-7.0); Monocytes # (auto) 0.5 10 ^3/uL (0-1.3); Monocytes % (auto) 6.3 % (0.0-12.0)
[2020-10-28 08:18] LABS: Basophils % (auto) 0.3 % (0.0-2.0); Hematocrit 27.5 % (41.0-53.0); Hemoglobin 9.4 g/dL (13.5-17.5); Lymphocytes # (auto) 1.9 10 ^3/uL (0.4-5.4); Lymphocytes % (auto) 21.9 % (10.0-50.0); Mean Corpuscular Hemoglobin 25.8 pg (28.0-32.0); Mean Corpuscular Hgb Conc. 34.3 g/dL (32.0-36.0); Neutrophils # (auto) 6.1 10 ^3/uL (1.6-8.6); Neutrophils % (auto) 71.3 % (37.0-80.0); Nucleated Red Blood Cells % 0.1 %; Red Blood Cells 3.67 10^6/uL (4.5-5.90); White Blood Cell 8.5 10^3/uL (4.4-10.8)
[2020-10-28 08:31] LABS: Potassium 3.8 mmol/L (3.5-5.1)
[2020-10-28 08:35] LABS: BUN/Creatinine Ratio 13.8; Calcium 8.2 mg/dL (8.5-10.1)
[2020-10-28 09:00] VITALS: BP 137/86
[2020-10-28] MEDS: BENAZEPRIL HCL 2.5 MG PO SCH (10:00)
[2020-10-28] MEDS: METOPROLOL SUCCINATE XL 50 MG TAB PO SCH (10:16)
[2020-10-28] MEDS: HYDROcodone-ACET 5/325MG TAB PO PRN ×2 (11:46→20:37)
[2020-10-28] MEDS: levoFLOXacin 500MG 100 ML IV SCH (12:43)
[2020-10-28 13:28] VITALS: BP 129/85
[2020-10-28 16:47] VITALS: BP 119/95
[2020-10-28 22:00] VITALS: BP 157/104
[2020-10-29 04:39] VITALS: BP 154/102
[2020-10-29 06:16] LABS: Basophils # (auto) 0.1 10 ^3/uL (0-0.2); Eosinophils # (auto) 0.1 10 ^3/uL (0-0.8); Eosinophils % (auto) 0.8 % (0.0-7.0); Hemoglobin 9.7 g/dL (13.5-17.5)
[2020-10-29 06:19] LABS: Basophils % (auto) 0.7 % (0.0-2.0); Hematocrit 30.2 % (41.0-53.0); Lymphocytes # (auto) 1.8 10 ^3/uL (0.4-5.4); Lymphocytes % (auto) 20.6 % (10.0-50.0); Mean Corpuscular Hemoglobin 24.6 pg (28.0-32.0); Mean Corpuscular Hgb Conc. 32.1 g/dL (32.0-36.0); Mean Corpuscular Volume 76.7 fL (80.0-100.0); Monocytes # (auto) 0.6 10 ^3/uL (0-1.3); Monocytes % (auto) 6.8 % (0.0-12.0); Neutrophils # (auto) 6.3 10 ^3/uL (1.6-8.6); Neutrophils % (auto) 71.1 % (37.0-80.0); Nucleated Red Blood Cells % 0.1 %; Red Blood Cells 3.94 10^6/uL (4.5-5.90); White Blood Cell 8.9 10^3/uL (4.4-10.8)
[2020-10-29 06:27] LABS: Red Cell Distribution Width 24.4 % (11.8-14.3)
[2020-10-29 06:34] LABS: BUN/Creatinine Ratio 19.4; Calcium 8.4 mg/dL (8.5-10.1)
[2020-10-29] MEDS: ACCU-CHEK COMFORT CURVE STRIP VI SCH ×2 (07:03→11:30)
[2020-10-29] MEDS: InsuLIN REG 1unit/0.01ml Soln (100units/ml) SC SCH ×2 (07:03→11:30)
[2020-10-29 08:40] VITALS: BP 166/111
[2020-10-29] MEDS: levoFLOXacin 500MG 100 ML IV SCH (09:11)
[2020-10-29] MEDS: BENAZEPRIL HCL 2.5 MG PO SCH (09:11)
[2020-10-29] MEDS: METOPROLOL SUCCINATE XL 50 MG TAB PO SCH (09:12)
[2020-10-29] MEDS: hydrALAZINE HCL 20 MG/ML VL IV PRN (09:16)
[2020-10-29] MEDS: HYDROcodone-ACET 5/325MG TAB PO PRN (09:16)
[2020-10-29] MEDS: ALBUTEROL SULF 2.5 MG/0.5ML(0.5%) NEB SOLN NEB SCH (10:10)
[2020-10-29] MEDS: VANCOMYCIN 750mg/250ml 250 ML IV SCH (12:00)
[2020-10-29 12:30] VITALS: BP 148/92
== END 2020-10-29 13:31 | disposition home or self-care (01) | DRG 617 ==
LOC: EDBD → ER 10:58 → OBSVTOIN 18:26 → TELE 18:26 → INTOOBSV 18:26 → TELE-WESTW 20:43 → EDBD 10-25 15:05 → OBSVTOIN 10-25 15:05
PROVIDERS: ADMIT Hospitalist; ATTEND Hospitalist
PROC: 0Y6H0Z1 Detachment at Right Lower Leg, High, Open Approach (ICD-10-PCS; 2020-10-22)
PROC: 0WPBX3Z Removal of Infusion Device from Left Pleural Cavity, External Approach (ICD-10-PCS; 2020-10-26)
PROC: 0W9B30Z Drainage of Left Pleural Cavity with Drainage Device, Percutaneous Approach (ICD-10-PCS; principal; 2020-10-27)
PROC: 30233N1 Transfusion of Nonautologous Red Blood Cells into Peripheral Vein, Percutaneous Approach (ICD-10-PCS; 2020-10-27)
DX: E11.69 Type 2 diabetes mellitus with other specified complication (principal); E11.52 Type 2 diabetes mellitus with diabetic peripheral angiopathy with gangrene; J90 Pleural effusion, not elsewhere classified; J98.11 Atelectasis; M86.8X7 Other osteomyelitis, ankle and foot; E87.2 Acidosis; E44.0 Moderate protein-calorie malnutrition; Z20.822 Contact with and (suspected) exposure to COVID-19; E11.65 Type 2 diabetes mellitus with hyperglycemia; I50.9 Heart failure, unspecified; D50.9 Iron deficiency anemia, unspecified; E78.00 Pure hypercholesterolemia, unspecified; I11.0 Hypertensive heart disease with heart failure; I34.0 Nonrheumatic mitral (valve) insufficiency; Z79.4 Long term (current) use of insulin; Z89.421 Acquired absence of other right toe(s); Z79.899 Other long term (current) drug therapy; Z82.49 Family history of ischemic heart disease and other diseases of the circulatory system; Z83.3 Family history of diabetes mellitus; Z88.5 Allergy status to narcotic agent; Z88.8 Allergy status to other drugs, medicaments and biological substances
CPT/HCPCS: 36415; 71045; 73718; 75635; 80048; 80053; 80202; 81001; 82962; 83605; 83735; 85014; 85018; 85025; 85610; 85730; 86850; 86900; 86901; 86920; 87040; 87070; 87075; 87077; 87081; 87186; 87205; 87426; 93005; 93306; 94640; 96365; G0378; J1100; J1815; J1956; J2001; J2250; J2405; J2704; J3490; Q0161

== ENCOUNTER → 2020-11-06 | Day surgery (SDC) | payer OTHER ==
[~2020-11-06] VITALS: Ht 157.5 cm; Wt 50.3 kg
[~2020-11-06] MED LIST changes: +DOPamine 1600MCG/ML D5W 250 ML IV ONE; +GABA300C10 PO; +HYDROmorphone HCL 2 MG/ML VL IV PRN; +INSU1INJ14 SC; +MIDAZOLAM HCL 1MG/1ML-2 ML VIAL ONE; +ONDANSETRON HCL 4 MG/2 ML VIAL IV PRN; +PHENYLEPHRINE HCL 10 MG/ML VL IV ONE; +POVIDONE IODINE 10 % TOPICAL OINT 30GM TOP ONE; +PROPOFOL 10 MG/ML 20 ML IV ONE; +ceFAZolin 1GM VL ONE; +ceFAZolin 1GM/50ML 50 ML IV ONE; +fentaNYL CITRATE 100 MCG/2 ML VL ONE
[2020-11-07 02:05] LABS: Eosinophils # (auto) 0.2 10 ^3/uL (0-0.8); Mean Corpuscular Hemoglobin 25.1 pg (28.0-32.0); White Blood Cell 5.8 10^3/uL (4.4-10.8)
[2020-11-07 02:07] LABS: Basophils # (auto) 0 10 ^3/uL (0-0.2); Basophils % (auto) 0.6 % (0.0-2.0); Eosinophils % (auto) 3.9 % (0.0-7.0); Hematocrit 31.2 % (41.0-53.0); Hemoglobin 10.3 g/dL (13.5-17.5); Lymphocytes % (auto) 35.1 % (10.0-50.0); Mean Corpuscular Hgb Conc. 32.9 g/dL (32.0-36.0); Mean Corpuscular Volume 76.3 fL (80.0-100.0); Monocytes # (auto) 0.4 10 ^3/uL (0-1.3); Monocytes % (auto) 7.1 % (0.0-12.0); Neutrophils # (auto) 3.1 10 ^3/uL (1.6-8.6); Neutrophils % (auto) 53.3 % (37.0-80.0)
[2020-11-07 02:21] LABS: Albumin 2.9 g/dL (3.4-5.0); BUN/Creatinine Ratio 39.1; Calcium 8.6 mg/dL (8.5-10.1)
[2020-11-07 02:24] LABS: Bilirubin, Total 0.3 mg/dL (0.2-1.0); Total Protein 7.8 g/dL (6.4-8.2)
[2020-11-07 02:29] LABS: Red Cell Distribution Width 26.2 % (11.8-14.3)
[2020-11-07 03:14] LABS: INR 1.08 (0.9-1.15); Partial Thromboplastin Time 28.6 sec (23.0-31.2)
[2020-11-07 10:35] LABS: Urine Bacteria NONE SEEN /hpf (None Seen); Urine Blood Negative /uL (Negative); Urine Specific Gravity 1.016 (1.001-1.035); Urine WBC <1 /hpf (0 - 3)
[2020-11-07 16:40] VITALS: BP 116/77
== END | disposition home or self-care (01) ==
LOC: ER 22:10 → SUR 22:11 → EDBD 22:11 → ER 11-07 12:44
PROVIDERS: ATTEND Surgery
DX: T87.81 Dehiscence of amputation stump (principal); E11.9 Type 2 diabetes mellitus without complications; I42.9 Cardiomyopathy, unspecified; D64.9 Anemia, unspecified; G89.29 Other chronic pain; I25.10 Atherosclerotic heart disease of native coronary artery without angina pectoris; I11.0 Hypertensive heart disease with heart failure; D68.8 Other specified coagulation defects; Z88.5 Allergy status to narcotic agent; Z88.8 Allergy status to other drugs, medicaments and biological substances; Z20.822 Contact with and (suspected) exposure to COVID-19; Z98.890 Other specified postprocedural states; X58.XXXA Exposure to other specified factors, initial encounter; Y93.89 Activity, other specified; Y92.89 Other specified places as the place of occurrence of the external cause
CPT/HCPCS: 12020; 36415; 80053; 81001; 82962; 85025; 85610; 85730; 86850; 86900; 86901; 87070; 87075; 87077; 87205; 99285; C9803; U0003; 71045; J0690; J2250; J2704

== ENCOUNTER 2021-01-02 15:42 | Observation (INO) | payer OTHER ==
[~2021-01-02] VITALS: Ht 165.1 cm; Wt 57.0 kg
[~2021-01-02 15:42] MED LIST changes: -DOPamine 1600MCG/ML D5W 250 ML IV ONE; -HYDROmorphone HCL 2 MG/ML VL IV PRN; -MIDAZOLAM HCL 1MG/1ML-2 ML VIAL ONE; -ONDANSETRON HCL 4 MG/2 ML VIAL IV PRN; -PHENYLEPHRINE HCL 10 MG/ML VL IV ONE; -POVIDONE IODINE 10 % TOPICAL OINT 30GM TOP ONE; -PROPOFOL 10 MG/ML 20 ML IV ONE; -ceFAZolin 1GM VL ONE; -ceFAZolin 1GM/50ML 50 ML IV ONE; -fentaNYL CITRATE 100 MCG/2 ML VL ONE
[2021-01-02 20:52] LABS: Basophils # (auto) 0 10 ^3/uL (0-0.2); Basophils % (auto) 0.7 % (0.0-2.0); Eosinophils # (auto) 0.1 10 ^3/uL (0-0.8); Eosinophils % (auto) 1.1 % (0.0-7.0); Hematocrit 33.9 % (41.0-53.0); Lymphocytes # (auto) 1.9 10 ^3/uL (0.4-5.4); Lymphocytes % (auto) 35.8 % (10.0-50.0); Mean Corpuscular Hemoglobin 25.8 pg (28.0-32.0); Mean Corpuscular Hgb Conc. 32.5 g/dL (32.0-36.0); Mean Corpuscular Volume 79.6 fL (80.0-100.0); Monocytes # (auto) 0.4 10 ^3/uL (0-1.3); Monocytes % (auto) 7.1 % (0.0-12.0); Neutrophils % (auto) 55.3 % (37.0-80.0); Nucleated Red Blood Cells % 0.1 %; Red Blood Cells 4.26 10^6/uL (4.5-5.90); White Blood Cell 5.4 10^3/uL (4.4-10.8)
[2021-01-02 20:54] LABS: Red Cell Distribution Width 20.1 % (11.8-14.3)
[2021-01-02 21:07] LABS: INR 1.1 (0.9-1.15)
[2021-01-02 21:09] LABS: Alanine Aminotransferase 35 U/L (16-61); Albumin 3.7 g/dL (3.4-5.0); Anion Gap 8 (5-15); Blood Urea Nitrogen 38 mg/dL (7-18); CRP High Sensitivity 0.88 mg/dL (< 0.3); Calcium 8.9 mg/dL (8.5-10.1); Carbon Dioxide 23 mmol/L (21-32); Chloride 105 mmol/L (98-107); Glucose 121 mg/dL (74-106); Magnesium 2.2 mg/dL (1.6-2.6); Sodium 136 mmol/L (136-145)
[2021-01-02 21:14] LABS: Alkaline Phosphatase 169 U/L (45-117); Aspartate Aminotransferase 35 U/L (15-37); BUN/Creatinine Ratio 12.5; Bilirubin, Total 0.1 mg/dL (0.2-1.0); GFR African American 27 mL/min; GFR Non-African American 22 mL/min; Total Protein 8.9 g/dL (6.4-8.2)
[2021-01-02 21:23] LABS: Potassium 5.7 mmol/L (3.5-5.1)
[2021-01-02] MEDS ORDERED: CALCIUM GLUC 1,000mg/50ml-NS 50 ML IV ONE (21:45)
[2021-01-02] MEDS ORDERED: ALBUTEROL SULF 2.5 MG/0.5ML(0.5%) NEB SOLN NEB ONE (21:45)
[2021-01-02] MEDS ORDERED: InsuLIN REG 1unit/0.01ml Soln (100units/ml) IV ONE (21:45)
[2021-01-02] MEDS ORDERED: SODIUM ZIRCONIUM CYCL 10 GM PAK PO ONE (21:45)
[2021-01-02] MEDS ORDERED: VANCOMYCIN 1GM/250ML 250 ML IV ONE (21:45)
[2021-01-02] MEDS ORDERED: DEXTROSE (50%) 50ML SYRG IV ONE (21:45)
[2021-01-02] MEDS ORDERED: SODIUM BICARBONATE 8.4% INJ 50ML SYRINGE IV ONE (21:45)
[2021-01-02] MEDS ORDERED: SODIUM CHLORIDE 0.9% 1,000 ML IV ONE (21:45)
[2021-01-02] MEDS ORDERED: cefTRIAXone 1GM/50ML D5W 100 ML IV ONE (21:45)
[2021-01-03] MEDS ORDERED: SODIUM CHLORIDE 0.9% 1,000 ML IV ONE (05:15)
[2021-01-03 05:17] LABS: Potassium 4.8 mmol/L (3.5-5.1)
[2021-01-03 05:28] LABS: BUN/Creatinine Ratio 13.2; Calcium 9.2 mg/dL (8.5-10.1)
[2021-01-03] MEDS ORDERED: NITROGLYCERIN 0.4 MG SL TAB SL PRN (05:45)
[2021-01-03] MEDS ORDERED: DEXTROSE (50%) 50ML SYRG IV PRN (05:45)
[2021-01-03] MEDS ORDERED: CLINDAMYCIN 900MG IV 50 ML IV SCH (06:00)
[2021-01-03] MEDS: SODIUM CHLORIDE 0.9% 1,000 ML IV SCH ×3 (06:35→22:15)
[2021-01-03] MEDS: ACCU-CHEK COMFORT CURVE STRIP VI SCH ×5 (06:35→22:15)
[2021-01-03] MEDS: InsuLIN REG 1unit/0.01ml Soln (100units/ml) SC SCH ×3 (06:55→18:03)
[2021-01-03] MEDS ORDERED: ACCU-CHEK COMFORT CURVE STRIP VI SCH (07:00)
[2021-01-03] MEDS ORDERED: SODIUM CHLORIDE 0.9% 2,000 ML IV ONE (07:15)
[2021-01-03 08:34] LABS: Basophils # (auto) 0 10 ^3/uL (0-0.2); Eosinophils # (auto) 0 10 ^3/uL (0-0.8); Eosinophils % (auto) 0.1 % (0.0-7.0); Hematocrit 25.5 % (41.0-53.0); Monocytes # (auto) 0.4 10 ^3/uL (0-1.3)
[2021-01-03 08:35] LABS: Basophils % (auto) 0.5 % (0.0-2.0); Hemoglobin 8.3 g/dL (13.5-17.5); Lymphocytes # (auto) 0.9 10 ^3/uL (0.4-5.4); Lymphocytes % (auto) 13.6 % (10.0-50.0); Mean Corpuscular Hgb Conc. 32.6 g/dL (32.0-36.0); Mean Corpuscular Volume 79.7 fL (80.0-100.0); Monocytes % (auto) 5.8 % (0.0-12.0); White Blood Cell 6.3 10^3/uL (4.4-10.8)
[2021-01-03 08:52] LABS: BUN/Creatinine Ratio 12.6; Calcium 7.8 mg/dL (8.5-10.1)
[2021-01-03 09:43] LABS: Urine Bacteria FEW /hpf (None Seen); Urine Blood Negative /uL (Negative); Urine Hyaline Cast FEW /lpf (0 - 2); Urine Specific Gravity 1.014 (1.001-1.035); Urine WBC 3 /hpf (0 - 3)
[2021-01-03] MEDS ORDERED: VANCOMYCIN PER PHARMACY 0 MG IV SCH (11:00)
[2021-01-03 12:01] LABS: BUN/Creatinine Ratio 15.2; Calcium 8.3 mg/dL (8.5-10.1)
[2021-01-03] MEDS: PIPERACILLIN-TAZOB 2.25GM 50 ML IV SCH ×2 (12:45→17:37)
[2021-01-03] MEDS ORDERED: ACETAMINOPHEN 500 MG TAB PO ONE (14:28)
[2021-01-03] MEDS: HEPARIN SODIUM (PORCINE) 5000 UNITS/ML 1ML VIAL SC SCH ×2 (14:30→22:00)
[2021-01-03] MEDS ORDERED: ACETAMINOPHEN 500 MG TAB PO PRN (14:30)
[2021-01-03] MEDS: ONDANSETRON HCL 4 MG/2 ML VIAL IV PRN ×2 (15:45→22:28)
[2021-01-03 16:27] LABS: BUN/Creatinine Ratio 14.3; Calcium 8.4 mg/dL (8.5-10.1); Potassium 5.2 mmol/L (3.5-5.1)
[2021-01-03 21:20] VITALS: BP 106/70
[2021-01-03 22:00] VITALS: BP 106/70
[2021-01-03] MEDS ORDERED: InsuLIN REG 1unit/0.01ml Soln (100units/ml) SC SCH (22:00)
[2021-01-04] MEDS: ACCU-CHEK COMFORT CURVE STRIP VI SCH ×5 (01:55→21:42)
[2021-01-04 05:00] VITALS: BP 115/75
[2021-01-04] MEDS: HEPARIN SODIUM (PORCINE) 5000 UNITS/ML 1ML VIAL SC SCH ×3 (06:00→21:42)
[2021-01-04] MEDS: PIPERACILLIN-TAZOB 2.25GM 50 ML IV SCH ×4 (06:00→18:00)
[2021-01-04 06:20] LABS: Basophils # (auto) 0 10 ^3/uL (0-0.2); Eosinophils # (auto) 0 10 ^3/uL (0-0.8); Eosinophils % (auto) 0.1 % (0.0-7.0); Hemoglobin 10.2 g/dL (13.5-17.5); White Blood Cell 8.1 10^3/uL (4.4-10.8)
[2021-01-04 06:24] LABS: Basophils % (auto) 0.3 % (0.0-2.0); Hematocrit 30.9 % (41.0-53.0); Lymphocytes % (auto) 11.9 % (10.0-50.0); Mean Corpuscular Hemoglobin 26.2 pg (28.0-32.0); Mean Corpuscular Volume 79.4 fL (80.0-100.0); Monocytes # (auto) 0.6 10 ^3/uL (0-1.3); Monocytes % (auto) 6.9 % (0.0-12.0); Neutrophils # (auto) 6.5 10 ^3/uL (1.6-8.6); Neutrophils % (auto) 80.8 % (37.0-80.0); Nucleated Red Blood Cells % 0.1 %; Red Blood Cells 3.89 10^6/uL (4.5-5.90)
[2021-01-04] MEDS: SODIUM CHLORIDE 0.9% 1,000 ML IV SCH ×2 (06:35→15:05)
[2021-01-04] MEDS: InsuLIN REG 1unit/0.01ml Soln (100units/ml) SC SCH ×6 (06:36→22:37)
[2021-01-04 06:52] LABS: Red Cell Distribution Width 20.3 % (11.8-14.3)
[2021-01-04] MEDS ORDERED: POVIDONE IODINE 10 % TOPICAL OINT 30GM TOP ONE (06:58)
[2021-01-04] MEDS ORDERED: levoFLOXacin 500MG 100 ML IV ONE (07:20)
[2021-01-04] MEDS ORDERED: fentaNYL CITRATE 100 MCG/2 ML VL ONE ×2 (07:36→08:57)
[2021-01-04] MEDS ORDERED: MIDAZOLAM HCL 2MG/2ML 2ml VIAL (1mg/ml) ONE (07:36)
[2021-01-04] MEDS ORDERED: LIDOCAINE 2% (LOCAL ANESTH.) PF 5ml SDV ONE (07:40)
[2021-01-04] MEDS ORDERED: PROPOFOL 10 MG/ML 20 ML IV ONE (07:40)
[2021-01-04] MEDS ORDERED: ONDANSETRON HCL 4 MG/2 ML VIAL ONE (07:40)
[2021-01-04] MEDS ORDERED: ROCURONIUM 10MG/ML 10ML VIAL IV ONE (07:56)
[2021-01-04 08:05] LABS: BUN/Creatinine Ratio 16.1; Calcium 8.7 mg/dL (8.5-10.1); Potassium 5.3 mmol/L (3.5-5.1)
[2021-01-04] MEDS ORDERED: GLYCOPYRROLATE 0.2 MG/ML 1ML VIAL ONE (08:39)
[2021-01-04] MEDS ORDERED: fentaNYL CITRATE 100 MCG/2 ML VL IV PRN (09:00)
[2021-01-04] MEDS ORDERED: ONDANSETRON HCL 4 MG/2 ML VIAL IV PRN (09:00)
[2021-01-04] MEDS ORDERED: VANCOMYCIN 1GM/250ML 250 ML IV ONE (09:30)
[2021-01-04 10:11] VITALS: BP 138/79
[2021-01-04 13:00] VITALS: BP 146/83
[2021-01-04] MEDS: HYDROcodone-ACET 10/325MG TAB PO PRN ×2 (15:05→21:43)
[2021-01-04] MEDS ORDERED: DEXTROSE (50%) 50ML SYRG IV PRN (15:45)
[2021-01-04 16:56] VITALS: BP 106/54
[2021-01-04] MEDS ORDERED: TAMSULOSIN HYDROCHLORIDE 0.4 MG CAP PO SCH (18:00)
[2021-01-04 22:00] VITALS: BP 105/71
[2021-01-05] MEDS: PIPERACILLIN-TAZOB 2.25GM 50 ML IV SCH ×3 (00:01→12:00)
[2021-01-05 05:00] VITALS: BP 111/63
[2021-01-05 06:14] LABS: Basophils # (auto) 0 10 ^3/uL (0-0.2); Eosinophils # (auto) 0 10 ^3/uL (0-0.8); Eosinophils % (auto) 0.1 % (0.0-7.0); Monocytes # (auto) 0.4 10 ^3/uL (0-1.3)
[2021-01-05 06:18] LABS: Basophils % (auto) 0.6 % (0.0-2.0); Hematocrit 28.1 % (41.0-53.0); Hemoglobin 9.3 g/dL (13.5-17.5); Lymphocytes % (auto) 13.3 % (10.0-50.0); Mean Corpuscular Hemoglobin 26.3 pg (28.0-32.0); Mean Corpuscular Volume 79.7 fL (80.0-100.0); Monocytes % (auto) 5.1 % (0.0-12.0); Neutrophils # (auto) 6.1 10 ^3/uL (1.6-8.6); Neutrophils % (auto) 80.9 % (37.0-80.0); Red Blood Cells 3.52 10^6/uL (4.5-5.90); Red Cell Distribution Width 19.3 % (11.8-14.3); White Blood Cell 7.5 10^3/uL (4.4-10.8)
[2021-01-05 06:20] LABS: Calcium 8.7 mg/dL (8.5-10.1); Potassium 5.3 mmol/L (3.5-5.1)
[2021-01-05 06:22] LABS: BUN/Creatinine Ratio 19.4
[2021-01-05 06:26] LABS: INR 1.34 (0.9-1.15); Partial Thromboplastin Time 41.8 sec (23.6-33.0)
[2021-01-05] MEDS: HEPARIN SODIUM (PORCINE) 5000 UNITS/ML 1ML VIAL SC SCH (06:36)
[2021-01-05] MEDS: ACCU-CHEK COMFORT CURVE STRIP VI SCH ×2 (06:36→12:06)
[2021-01-05] MEDS: InsuLIN REG 1unit/0.01ml Soln (100units/ml) SC SCH ×2 (06:45→12:09)
[2021-01-05] MEDS: HYDROcodone-ACET 10/325MG TAB PO PRN (06:46)
[2021-01-05] MEDS: ONDANSETRON HCL 4 MG/2 ML VIAL IV PRN (08:02)
[2021-01-05 09:00] VITALS: BP 110/78
[2021-01-05] MEDS ORDERED: LIDOCAINE 1% (LOCAL ANESTH.) PF 5ml SDV ID ONE (09:30)
[2021-01-05] MEDS ORDERED: LACTULOSE 20Gm/30ML SOLN PO ONE (10:00)
[2021-01-05] MEDS ORDERED: SODIUM CHLOR 0.9% PF (SALINE LOCK) 10ML VIAL/SYR IV SCH (10:00)
[2021-01-05 10:43] VITALS: BP 110/78
[2021-01-05] MEDS ORDERED: VANCOMYCIN 1GM/250ML 250 ML IV SCH (11:00)
[2021-01-05 13:14] VITALS: BP 124/71
== END 2021-01-05 13:19 ==
LOC: ER 15:42 → EDBD 01-03 05:42 → TELE 01-03 05:42 → TELE-CENTR 01-03 21:20 → CENTRAL 01-04 16:52 → TELE-CENTR 01-04 16:58 → CENTRAL 01-04 17:15
PROVIDERS: ADMIT Hospitalist; ATTEND Hospitalist
DX: T87.81 Dehiscence of amputation stump (principal); Z20.822 Contact with and (suspected) exposure to COVID-19; L03.115 Cellulitis of right lower limb; N17.9 Acute kidney failure, unspecified; E87.5 Hyperkalemia; M86.9 Osteomyelitis, unspecified; E11.51 Type 2 diabetes mellitus with diabetic peripheral angiopathy without gangrene; E11.65 Type 2 diabetes mellitus with hyperglycemia; I10 Essential (primary) hypertension; D84.9 Immunodeficiency, unspecified; I73.9 Peripheral vascular disease, unspecified; N40.1 Benign prostatic hyperplasia with lower urinary tract symptoms; R33.8 Other retention of urine; E78.00 Pure hypercholesterolemia, unspecified; Z79.4 Long term (current) use of insulin; Z79.899 Other long term (current) drug therapy; Z89.511 Acquired absence of right leg below knee
CPT/HCPCS: 27886; 36415; 36569; 71045; 73562; 73718; 76775; 80048; 80053; 80202; 81001; 82010; 82962; 83605; 83735; 84484; 85025; 85610; 85652; 85730; 86141; 86850; 86900; 86901; 87040; 87070; 87075; 87205; 87426; 88305; 88311; 93005; 94644; 96365; 96366; 96367; 96368; 96372; 96375; 99285; C1751; G0378; J0610; J0696; J1644; J1815; J1956; J2001; J2250; J2405; J2543; J2704; J3010; J3370; J3490; J7030; J7042; J7050; U0003; 96361

== ENCOUNTER 2021-02-15 13:25 | Inpatient (IN) | payer OTHER ==
[~2021-02-15] VITALS: Ht 157.5 cm; Wt 60.8 kg
[2021-02-15] VITALS (7 sets, daily range): BP systolic 98–133; BP diastolic 62–102
[~2021-02-15 13:25] MED LIST changes: -BENA10TA14 GT; -FURO1TAB33 PO; -METF-370 PO; -POTA1TAB4 PO
[2021-02-15] MEDS ORDERED: SODIUM CHLORIDE 0.9% 1,000 ML IV ONE ×2 (13:45)
[2021-02-15] MEDS ORDERED: IOHEXOL 350 MG/ML 100ML IJ ONE ×2 (14:24→14:34)
[2021-02-15] MEDS ORDERED: LIDOCAINE 2%HCL (LOCAL ANESTH.) INJ 20ML MDV ONE (14:24)
[2021-02-15] MEDS ORDERED: ASPirin 81 mg TAB PO ONE (14:30)
[2021-02-15] MEDS ORDERED: HEPARIN SODIUM (PORCINE) 5000 UNITS/ML 1ML VIAL IV ONE (14:30)
[2021-02-15] MEDS ORDERED: ANGIOMAX 250 MG VIAL IV ONE (14:34)
[2021-02-15] MEDS ORDERED: fentaNYL CITRATE 100 MCG/2 ML VL ONE (14:34)
[2021-02-15] MEDS ORDERED: SODIUM CHL 0.9% 0 ML ONE (14:34)
[2021-02-15] MEDS ORDERED: MIDAZOLAM HCL 2MG/2ML 2ml VIAL (1mg/ml) ONE (14:34)
[2021-02-15 14:38] LABS: Basophils # (auto) 0 10 ^3/uL (0-0.2); Basophils % (auto) 0.1 % (0.0-2.0); Eosinophils # (auto) 0 10 ^3/uL (0-0.8); Hematocrit 32.5 % (41.0-53.0); Hemoglobin 10.2 g/dL (13.5-17.5); Lymphocytes # (auto) 0.5 10 ^3/uL (0.4-5.4); Lymphocytes % (auto) 7.4 % (10.0-50.0); Mean Corpuscular Hemoglobin 25.5 pg (28.0-32.0); Mean Corpuscular Hgb Conc. 31.5 g/dL (32.0-36.0); Mean Corpuscular Volume 80.8 fL (80.0-100.0); Monocytes # (auto) 0.6 10 ^3/uL (0-1.3); Monocytes % (auto) 8.7 % (0.0-12.0); Neutrophils # (auto) 6.1 10 ^3/uL (1.6-8.6); Neutrophils % (auto) 83.8 % (37.0-80.0); Nucleated Red Blood Cells % 0.3 %; Red Blood Cells 4.02 10^6/uL (4.5-5.90); Red Cell Distribution Width 18.5 % (11.8-14.3); White Blood Cell 7.3 10^3/uL (4.4-10.8)
[2021-02-15] MEDS ORDERED: ATROPINE SULF 1 MG/10ml SYR ONE (15:03)
[2021-02-15 15:28] LABS: Albumin 3.2 g/dL (3.4-5.0)
[2021-02-15 15:39] LABS: Bilirubin, Total 1.6 mg/dL (0.2-1.0); Total Protein 7.6 g/dL (6.4-8.2)
[2021-02-15 16:02] LABS: BUN/Creatinine Ratio 20.6
[2021-02-15] MEDS ORDERED: SODIUM ZIRCONIUM CYCL 10 GM PAK PO ONE (16:15)
[2021-02-15] MEDS ORDERED: SODIUM CHLORIDE 0.9% 1,000 ML IV SCH ×2 (16:30→21:45)
[2021-02-15] MEDS: SODIUM ZIRCONIUM CYCL 10 GM PAK PO SCH ×2 (18:20→22:05)
[2021-02-15 21:19] LABS: Chloride 104 mmol/L (98-107); Sodium 134 mmol/L (136-145)
[2021-02-15 21:23] LABS: Albumin 2.9 g/dL (3.4-5.0); Blood Urea Nitrogen 37 mg/dL (7-18); Calcium 8.5 mg/dL (8.5-10.1); Carbon Dioxide 18 mmol/L (21-32); GFR African American 56 mL/min; GFR Non-African American 47 mL/min; Glucose 180 mg/dL (74-106)
[2021-02-15] MEDS ORDERED: DEXTROSE (50%) 50ML SYRG IV PRN (21:30)
[2021-02-15 21:32] LABS: Alanine Aminotransferase 2046 U/L (16-61); Alkaline Phosphatase 188 U/L (45-117); Bilirubin, Total 1.5 mg/dL (0.2-1.0); Total Protein 7.2 g/dL (6.4-8.2)
[2021-02-15 21:47] LABS: Aspartate Aminotransferase 4831 U/L (15-37)
[2021-02-15 21:58] LABS: Anion Gap 12 (5-15)
[2021-02-15 21:59] LABS: Potassium 6.1 mmol/L (3.5-5.1)
[2021-02-15] MEDS: ACCU-CHEK COMFORT CURVE STRIP VI SCH (22:07)
[2021-02-15] MEDS: InsuLIN REG 1unit/0.01ml Soln (100units/ml) SC SCH (22:14)
[2021-02-16] MEDS: SODIUM CHLORIDE 0.9% 1,000 ML IV SCH ×2 (00:42→09:13)
[2021-02-16] MEDS ORDERED: BUMETANIDE 2.5mg/10ml (0.25 mg/ml) INJ IV ONE (00:45)
[2021-02-16] MEDS ORDERED: SODIUM ZIRCONIUM CYCL 10 GM PAK PO ONE (00:45)
[2021-02-16 04:12] LABS: Basophils # (auto) 0 10 ^3/uL (0-0.2); Basophils % (auto) 0.2 % (0.0-2.0); Eosinophils # (auto) 0 10 ^3/uL (0-0.8); Lymphocytes # (auto) 1.3 10 ^3/uL (0.4-5.4); Monocytes # (auto) 0.6 10 ^3/uL (0-1.3); Red Blood Cells 4.02 10^6/uL (4.5-5.90)
[2021-02-16 04:16] LABS: Hematocrit 34.5 % (41.0-53.0); Hemoglobin 10.5 g/dL (13.5-17.5); Lymphocytes % (auto) 17.1 % (10.0-50.0); Mean Corpuscular Hemoglobin 26.2 pg (28.0-32.0); Mean Corpuscular Hgb Conc. 30.5 g/dL (32.0-36.0); Mean Corpuscular Volume 85.8 fL (80.0-100.0); Monocytes % (auto) 7.5 % (0.0-12.0); Neutrophils # (auto) 5.5 10 ^3/uL (1.6-8.6); Neutrophils % (auto) 75.2 % (37.0-80.0); Nucleated Red Blood Cells % 0.3 %; Red Cell Distribution Width 19.2 % (11.8-14.3); White Blood Cell 7.4 10^3/uL (4.4-10.8)
[2021-02-16] MEDS ORDERED: ONDANSETRON HCL 4 MG/2 ML VIAL ONE ×2 (04:23→09:31)
[2021-02-16 04:38] LABS: BUN/Creatinine Ratio 26.2; Calcium 8.5 mg/dL (8.5-10.1); Potassium 4.9 mmol/L (3.5-5.1)
[2021-02-16 05:07] LABS: Urine Bacteria FEW /hpf (None Seen); Urine Blood 1+ /uL (Negative); Urine Hyaline Cast MOD /lpf (0 - 2); Urine Mucus FEW (None Seen); Urine Specific Gravity 1.015 (1.001-1.035); Urine WBC 2 /hpf (0 - 3)
[2021-02-16] MEDS: SODIUM ZIRCONIUM CYCL 10 GM PAK PO SCH (06:00)
[2021-02-16] MEDS: ACCU-CHEK COMFORT CURVE STRIP VI SCH ×4 (06:49→22:19)
[2021-02-16] MEDS: InsuLIN REG 1unit/0.01ml Soln (100units/ml) SC SCH ×4 (06:51→22:00)
[2021-02-16] MEDS ORDERED: DOCUSATE SOD 100 MG CAP PO ONE (09:31)
[2021-02-16] MEDS: DOCUSATE SOD 100 MG CAP PO SCH ×2 (09:40→21:06)
[2021-02-16] MEDS: ONDANSETRON HCL 4 MG/2 ML VIAL IV PRN ×3 (09:41→23:17)
[2021-02-16] MEDS ORDERED: METOPROLOL SUCCINATE XL 50 MG TAB PO ONE (11:00)
[2021-02-16] MEDS ORDERED: HEPARIN DRIP/D5W 100UNITS/ML 250 ML IV SCH (11:30)
[2021-02-16] MEDS ORDERED: HEPARIN SODIUM (PORCINE) 5000 UNITS/ML 1ML VIAL IV ONE (11:30)
[2021-02-16 11:41] LABS: INR 1.96 (0.9-1.15); Partial Thromboplastin Time 29.6 sec (23.6-33.0)
[2021-02-16] MEDS: SODIUM BICARBONATE 50ML VIAL 50 ML in SOD CHL 0.45% 1,000 ML IV SCH ×2 (12:25→20:00)
[2021-02-16 14:35] LABS: Sodium Urine 79 mmol/L (40-220)
[2021-02-16 14:37] LABS: Protein, Urine 19.2 mg/dL (0.0-11.9)
[2021-02-16 14:38] LABS: Creatinine, Urine 31 mg/dL (30.0-125.0)
[2021-02-17] MEDS: SODIUM BICARBONATE 50ML VIAL 50 ML in SOD CHL 0.45% 1,000 ML IV SCH (03:18)
[2021-02-17] MEDS: ONDANSETRON HCL 4 MG/2 ML VIAL IV PRN ×3 (03:24→14:41)
[2021-02-17 03:56] LABS: Basophils # (auto) 0 10 ^3/uL (0-0.2); Eosinophils # (auto) 0 10 ^3/uL (0-0.8); Hemoglobin 10.3 g/dL (13.5-17.5); Lymphocytes # (auto) 1.5 10 ^3/uL (0.4-5.4); Monocytes # (auto) 0.7 10 ^3/uL (0-1.3); Red Cell Distribution Width 18.6 % (11.8-14.3); White Blood Cell 8.1 10^3/uL (4.4-10.8)
[2021-02-17 03:59] LABS: Basophils % (auto) 0.2 % (0.0-2.0); Hematocrit 31.6 % (41.0-53.0); Lymphocytes % (auto) 19.1 % (10.0-50.0); Mean Corpuscular Hemoglobin 26.4 pg (28.0-32.0); Mean Corpuscular Hgb Conc. 32.5 g/dL (32.0-36.0); Monocytes % (auto) 8.1 % (0.0-12.0); Neutrophils # (auto) 5.9 10 ^3/uL (1.6-8.6); Neutrophils % (auto) 72.6 % (37.0-80.0); Nucleated Red Blood Cells % 0.6 %
[2021-02-17 04:12] LABS: INR 2.22 (0.9-1.15); Partial Thromboplastin Time 59.2 sec (23.6-33.0)
[2021-02-17 04:16] LABS: Calcium 8.1 mg/dL (8.5-10.1); Potassium 3.8 mmol/L (3.5-5.1)
[2021-02-17 04:18] LABS: BUN/Creatinine Ratio 35.7
[2021-02-17] MEDS: ACCU-CHEK COMFORT CURVE STRIP VI SCH ×3 (06:39→17:00)
[2021-02-17] MEDS: InsuLIN REG 1unit/0.01ml Soln (100units/ml) SC SCH ×3 (06:44→17:00)
[2021-02-17] MEDS ORDERED: HEPARIN DRIP/D5W 100UNITS/ML 250 ML IV SCH (09:15)
[2021-02-17] MEDS ORDERED: ZOLPIDEM TARTRATE 5 MG TAB PO PRN (09:30)
[2021-02-17] MEDS ORDERED: SODIUM BICARBONATE 50ML VIAL 50 ML in SOD CHL 0.45% 1,000 ML IV SCH (09:45)
[2021-02-17] MEDS: DOCUSATE SOD 100 MG CAP PO SCH (09:48)
[2021-02-17] MEDS ORDERED: METOPROLOL SUCCINATE XL 50 MG TAB PO SCH (10:00)
[2021-02-17 10:11] LABS: INR 2.27 (0.9-1.15); Partial Thromboplastin Time 69.3 sec (23.6-33.0)
[2021-02-17 19:44] LABS: INR 2.42 (0.9-1.15); Partial Thromboplastin Time 63.4 sec (23.6-33.0)
== END 2021-02-17 20:01 | disposition short-term general hospital (02) | DRG 270 ==
LOC: ER 13:25 → ICU WEST 16:25
PROVIDERS: ADMIT Internal Medicine; ATTEND Internal Medicine Cardiovascular Disease
PROC: 5A02210 Assistance with Cardiac Output using Balloon Pump, Continuous (ICD-10-PCS; principal; 2021-02-15)
PROC: B2111ZZ Fluoroscopy of Multiple Coronary Arteries using Low Osmolar Contrast (ICD-10-PCS; 2021-02-15)
DX: I21.29 ST elevation (STEMI) myocardial infarction involving other sites (principal); E11.10 Type 2 diabetes mellitus with ketoacidosis without coma; N17.0 Acute kidney failure with tubular necrosis; R57.0 Cardiogenic shock; K72.00 Acute and subacute hepatic failure without coma; I50.23 Acute on chronic systolic (congestive) heart failure; I13.0 Hypertensive heart and chronic kidney disease with heart failure and stage 1 through stage 4 chronic kidney disease, or unspecified chronic kidney disease; E11.65 Type 2 diabetes mellitus with hyperglycemia; E87.5 Hyperkalemia; N18.9 Chronic kidney disease, unspecified; E11.22 Type 2 diabetes mellitus with diabetic chronic kidney disease; E11.40 Type 2 diabetes mellitus with diabetic neuropathy, unspecified; D63.1 Anemia in chronic kidney disease; I25.5 Ischemic cardiomyopathy; E11.21 Type 2 diabetes mellitus with diabetic nephropathy; E78.5 Hyperlipidemia, unspecified; E11.51 Type 2 diabetes mellitus with diabetic peripheral angiopathy without gangrene; I25.10 Atherosclerotic heart disease of native coronary artery without angina pectoris; Z20.822 Contact with and (suspected) exposure to COVID-19; Z82.49 Family history of ischemic heart disease and other diseases of the circulatory system; Z83.3 Family history of diabetes mellitus; Z89.511 Acquired absence of right leg below knee; Z91.19 Patient's noncompliance with other medical treatment and regimen; Z88.5 Allergy status to narcotic agent; Z88.8 Allergy status to other drugs, medicaments and biological substances; Z79.4 Long term (current) use of insulin
CPT/HCPCS: 33967; 36415; 71045; 74176; 80048; 80053; 81001; 82010; 82570; 82962; 83036; 83735; 83880; 84156; 84300; 84484; 85025; 85610; 85730; 87081; 87426; 93005; 93454; 96374; 99152; 99153; 99291; C1887; G0378; J2250; J2405

== ENCOUNTER 2021-03-31 08:28 | Inpatient (IN) | payer OTHER ==
[~2021-03-31] VITALS: Ht 157.5 cm; Wt 58.2 kg
[~2021-03-31 08:28] MED LIST changes: +ASPI-431 PO; +ATOR40TA52 PO; +BENA5TAB9 PO; -DULA1INJ SC; +FURO1TAB33 PO; +POTA1TAB4 PO; +TAMS0.4C36 PO
[2021-03-31 11:01] LABS: Basophils # (auto) 0 10 ^3/uL (0-0.2); Basophils % (auto) 0.4 % (0.0-2.0); Eosinophils # (auto) 0.1 10 ^3/uL (0-0.8); Eosinophils % (auto) 1.2 % (0.0-7.0); Hematocrit 31.4 % (41.0-53.0); Lymphocytes # (auto) 1.2 10 ^3/uL (0.4-5.4); Lymphocytes % (auto) 16.4 % (10.0-50.0); Mean Corpuscular Hemoglobin 27.8 pg (28.0-32.0); Mean Corpuscular Hgb Conc. 31.8 g/dL (32.0-36.0); Mean Corpuscular Volume 87.5 fL (80.0-100.0); Monocytes # (auto) 0.6 10 ^3/uL (0-1.3); Monocytes % (auto) 7.2 % (0.0-12.0); Neutrophils # (auto) 5.7 10 ^3/uL (1.6-8.6); Neutrophils % (auto) 74.8 % (37.0-80.0); Nucleated Red Blood Cells % 0.1 %; Red Blood Cells 3.59 10^6/uL (4.5-5.90); Red Cell Distribution Width 21.8 % (11.8-14.3); White Blood Cell 7.6 10^3/uL (4.4-10.8)
[2021-03-31 11:17] LABS: Calcium 8.5 mg/dL (8.5-10.1)
[2021-03-31 11:26] LABS: Albumin 2.3 g/dL (3.4-5.0); BUN/Creatinine Ratio 16.5; Bilirubin, Total 1.2 mg/dL (0.2-1.0); Total Protein 7.4 g/dL (6.4-8.2)
[2021-03-31 11:36] LABS: Potassium 5.6 mmol/L (3.5-5.1)
[2021-03-31] MEDS ORDERED: ASPirin 325 MG TAB PO ONE (13:00)
[2021-03-31] MEDS ORDERED: InsuLIN REG 1unit/0.01ml Soln (100units/ml) IV ONE (13:00)
[2021-03-31] MEDS ORDERED: SODIUM ZIRCONIUM CYCL 10 GM PAK PO ONE (13:00)
[2021-03-31] MEDS ORDERED: CALCIUM GLUC 1,000mg/50ml-NS 50 ML IV ONE (13:00)
[2021-03-31] MEDS ORDERED: SODIUM BICARBONATE 8.4% INJ 50ML SYRINGE IV ONE (13:00)
[2021-03-31] MEDS: InsuLIN REG 1unit/0.01ml Soln (100units/ml) SC SCH (17:00)
[2021-03-31] MEDS ORDERED: MORPHINE SULFATE INJECTION 2 MG/ML SYRG IV PRN (17:00)
[2021-03-31] MEDS ORDERED: DEXTROSE (50%) 50ML SYRG IV PRN (17:00)
[2021-03-31] MEDS ORDERED: hydrALAZINE HCL 20 MG/ML VL IV PRN (17:00)
[2021-03-31] MEDS ORDERED: NITROGLYCERIN 0.4 MG SL TAB SL PRN (17:00)
[2021-03-31] MEDS: ACCU-CHEK COMFORT CURVE STRIP VI SCH ×2 (17:06→22:00)
[2021-03-31] MEDS: FUROSEMIDE 20 MG/2 ML VIAL IV SCH (17:58)
[2021-03-31] MEDS ORDERED: TAMSULOSIN HYDROCHLORIDE 0.4 MG CAP PO SCH (18:00)
[2021-03-31] MEDS ORDERED: FUROSEMIDE 20 MG/2 ML VIAL IV SCH (18:00)
[2021-03-31 19:03] LABS: INR 1.54 (0.9-1.15)
[2021-03-31] MEDS ORDERED: ATORVASTATIN 20 MG TAB PO SCH (22:00)
[2021-03-31] MEDS ORDERED: InsuLIN REG 1unit/0.01ml Soln (100units/ml) SC SCH (22:00)
[2021-03-31] MEDS: GABAPENTIN 300 MG CAP PO SCH (23:35)
[2021-04-01 00:02] LABS: BUN/Creatinine Ratio 18.5; Calcium 8.8 mg/dL (8.5-10.1); Potassium 4.7 mmol/L (3.5-5.1)
[2021-04-01 00:30] VITALS: BP 130/87
[2021-04-01 05:00] VITALS: BP 123/77
[2021-04-01 06:25] LABS: Calcium 8.2 mg/dL (8.5-10.1); Potassium 4.2 mmol/L (3.5-5.1)
[2021-04-01 06:28] LABS: BUN/Creatinine Ratio 22.1
[2021-04-01] MEDS: InsuLIN REG 1unit/0.01ml Soln (100units/ml) SC SCH ×2 (06:28→11:57)
[2021-04-01] MEDS: ACCU-CHEK COMFORT CURVE STRIP VI SCH ×2 (06:30→11:50)
[2021-04-01] MEDS: FUROSEMIDE 20 MG/2 ML VIAL IV SCH (06:30)
[2021-04-01 07:22] LABS: Basophils # (auto) 0.1 10 ^3/uL (0-0.2); Basophils % (auto) 0.7 % (0.0-2.0); Eosinophils # (auto) 0.4 10 ^3/uL (0-0.8); Eosinophils % (auto) 4.5 % (0.0-7.0); Hematocrit 31.1 % (41.0-53.0); Lymphocytes # (auto) 1.8 10 ^3/uL (0.4-5.4); Lymphocytes % (auto) 20.9 % (10.0-50.0); Mean Corpuscular Hemoglobin 26.9 pg (28.0-32.0); Mean Corpuscular Volume 84.2 fL (80.0-100.0); Monocytes # (auto) 0.7 10 ^3/uL (0-1.3); Monocytes % (auto) 7.8 % (0.0-12.0); Neutrophils # (auto) 5.6 10 ^3/uL (1.6-8.6); Neutrophils % (auto) 66.1 % (37.0-80.0); Nucleated Red Blood Cells % 0.1 %; Red Cell Distribution Width 21.4 % (11.8-14.3); White Blood Cell 8.5 10^3/uL (4.4-10.8)
[2021-04-01 08:00] VITALS: BP 116/89
[2021-04-01] MEDS: GABAPENTIN 300 MG CAP PO SCH (09:54)
[2021-04-01] MEDS ORDERED: BENAZEPRIL HCL 10 MG TAB PO SCH ×2 (10:00)
[2021-04-01] MEDS ORDERED: ASPirin 81 mg TAB PO ONE (10:00)
[2021-04-01] MEDS ORDERED: METOPROLOL SUCCINATE XL 50 MG TAB PO SCH (10:00)
[2021-04-01] MEDS ORDERED: FUROSEMIDE 20 MG/2 ML VIAL IV SCH (10:00)
[2021-04-01] MEDS ORDERED: POTASSIUM CHL 20 Meq TABLET PO SCH (10:00)
[2021-04-01 12:00] VITALS: BP 126/99
[2021-04-01] MEDS ORDERED: FUROSEMIDE 20 MG/2 ML VIAL IV ONE (13:15)
[2021-04-01 13:21] VITALS: BP 123/77
[2021-04-01 16:00] VITALS: BP 127/80
== END 2021-04-01 16:40 | disposition home or self-care (01) | DRG 281 ==
LOC: ER 08:28 → TELE 16:53 → TELE-WESTW 22:59
PROVIDERS: ADMIT Internal Medicine; ATTEND Internal Medicine
DX: I21.4 Non-ST elevation (NSTEMI) myocardial infarction (principal); E87.1 Hypo-osmolality and hyponatremia; I42.9 Cardiomyopathy, unspecified; E44.0 Moderate protein-calorie malnutrition; E87.5 Hyperkalemia; E11.65 Type 2 diabetes mellitus with hyperglycemia; I25.10 Atherosclerotic heart disease of native coronary artery without angina pectoris; D64.9 Anemia, unspecified; I11.0 Hypertensive heart disease with heart failure; E78.5 Hyperlipidemia, unspecified; I50.9 Heart failure, unspecified; I97.0 Postcardiotomy syndrome; Z79.4 Long term (current) use of insulin; Z79.82 Long term (current) use of aspirin; Z79.899 Other long term (current) drug therapy; Z91.19 Patient's noncompliance with other medical treatment and regimen; I25.2 Old myocardial infarction; Z82.49 Family history of ischemic heart disease and other diseases of the circulatory system; Z83.3 Family history of diabetes mellitus; Z89.511 Acquired absence of right leg below knee; Z95.1 Presence of aortocoronary bypass graft
CPT/HCPCS: 36415; 71045; 80048; 80053; 82962; 83880; 84484; 85025; 85610; 87426; 93005; 96365; 96375; G0378; J1815

== ENCOUNTER 2021-10-23 17:14 | Inpatient (IN) | payer OTHER ==
[~2021-10-23] VITALS: Ht 170.2 cm; Wt 55.7 kg
[~2021-10-23 17:14] MED LIST changes: +BUME2TAB5 PO; +HYDR-4902 PO; -INSU1INJ14 SC; -METO25TA36 PO
[2021-10-23] MEDS ORDERED: SODIUM CHLORIDE 0.9% 1,000 ML IV ONE ×2 (18:00→20:50)
[2021-10-23] MEDS ORDERED: LOPERAMIDE HCL 2 MG CAP/TAB PO ONE (18:00)
[2021-10-23 18:22] LABS: Basophils # (auto) 0 10 ^3/uL (0-0.2); Basophils % (auto) 0.3 % (0.0-2.0); Eosinophils # (auto) 0 10 ^3/uL (0-0.8); Eosinophils % (auto) 0.2 % (0.0-7.0); Monocytes # (auto) 0.4 10 ^3/uL (0-1.3)
[2021-10-23 18:24] LABS: Hematocrit 34.5 % (41.0-53.0); Hemoglobin 11.5 g/dL (13.5-17.5); Lymphocytes # (auto) 0.5 10 ^3/uL (0.4-5.4); Lymphocytes % (auto) 3.9 % (10.0-50.0); Mean Corpuscular Hemoglobin 26.3 pg (28.0-32.0); Mean Corpuscular Hgb Conc. 33.4 g/dL (32.0-36.0); Mean Corpuscular Volume 78.7 fL (80.0-100.0); Monocytes % (auto) 3.5 % (0.0-12.0); Neutrophils # (auto) 10.9 10 ^3/uL (1.6-8.6); Neutrophils % (auto) 92.1 % (37.0-80.0); Nucleated Red Blood Cells % 0.1 %; Red Blood Cells 4.38 10^6/uL (4.5-5.90); White Blood Cell 11.8 10^3/uL (4.4-10.8)
[2021-10-23 18:34] LABS: Lactic Acid w/Reflex 3.8 mmol/L (0.4-2.0)
[2021-10-23 19:41] LABS: Albumin 1.8 g/dL (3.4-5.0); Calcium 7.7 mg/dL (8.5-10.1)
[2021-10-23 19:44] LABS: BUN/Creatinine Ratio 21.2; Bilirubin, Total 1.4 mg/dL (0.2-1.0); Total Protein 6.7 g/dL (6.4-8.2)
[2021-10-23 19:51] LABS: Potassium 5.6 mmol/L (3.5-5.1)
[2021-10-23] MEDS ORDERED: NOREPINEPHRINE 8 MG/250ML KIT 250 ML IV SCH (21:00)
[2021-10-23] MEDS ORDERED: VANCOMYCIN 1GM/250ML 250 ML IV ONE (21:00)
[2021-10-23 22:22] LABS: Urine Bacteria NONE SEEN /hpf (None Seen); Urine Blood Negative /uL (Negative); Urine Hyaline Cast MOD /lpf (0 - 2); Urine Mucus FEW (None Seen); Urine Specific Gravity 1.024 (1.001-1.035); Urine WBC 3 /hpf (0 - 3)
[2021-10-24] MEDS ORDERED: SODIUM CHLORIDE 0.9% 1,000 ML IV ONE ×2 (01:15→12:00)
[2021-10-24] MEDS ORDERED: ACETAMINOPHEN 500 MG TAB PO ONE (01:15)
[2021-10-24] MEDS ORDERED: NITROGLYCERIN 0.4 MG SL TAB SL PRN (03:45)
[2021-10-24] MEDS ORDERED: MORPHINE SULFATE INJ 2 MG/ml SYRG IV PRN (03:45)
[2021-10-24] MEDS ORDERED: ONDANSETRON HCL 4 MG/2 ML VIAL IV PRN (03:45)
[2021-10-24] MEDS ORDERED: VANCOMYCIN PER PHARMACY 0 MG IV SCH (04:15)
[2021-10-24] MEDS ORDERED: FUROSEMIDE 20 MG/2 ML VIAL IV ONE (04:15)
[2021-10-24] MEDS: NOREPINEPHRINE 8 MG/250ML KIT 250 ML IV SCH (04:39)
[2021-10-24] MEDS ORDERED: levoFLOXacin 750MG 150 ML IV SCH (05:00)
[2021-10-24] MEDS ORDERED: CLINDAMYCIN 900MG IV 50 ML IV SCH (06:00)
[2021-10-24 06:22] LABS: Eosinophils # (auto) 0.2 10 ^3/uL (0-0.8); Hemoglobin 11.4 g/dL (13.5-17.5); Lymphocytes # (auto) 0.3 10 ^3/uL (0.4-5.4); Mean Corpuscular Hemoglobin 26.4 pg (28.0-32.0); Monocytes # (auto) 0.3 10 ^3/uL (0-1.3); Monocytes % (auto) 2.5 % (0.0-12.0); Nucleated Red Blood Cells % 0.1 %; Red Blood Cells 4.31 10^6/uL (4.5-5.90); White Blood Cell 11.6 10^3/uL (4.4-10.8)
[2021-10-24 06:23] LABS: Basophils # (auto) 0 10 ^3/uL (0-0.2); Basophils % (auto) 0.2 % (0.0-2.0); Eosinophils % (auto) 1.9 % (0.0-7.0); Hematocrit 34.6 % (41.0-53.0); Lymphocytes % (auto) 2.9 % (10.0-50.0); Mean Corpuscular Hgb Conc. 32.9 g/dL (32.0-36.0); Mean Corpuscular Volume 80.2 fL (80.0-100.0); Neutrophils # (auto) 10.7 10 ^3/uL (1.6-8.6); Neutrophils % (auto) 92.5 % (37.0-80.0)
[2021-10-24 06:24] LABS: Red Cell Distribution Width 21.8 % (11.8-14.3)
[2021-10-24] MEDS: PIPERACILLIN-TAZOB 2.25GM 50 ML IV SCH ×3 (06:25→20:09)
[2021-10-24 06:36] LABS: Potassium 4.9 mmol/L (3.5-5.1)
[2021-10-24 06:38] LABS: BUN/Creatinine Ratio 23.2; Calcium 7.3 mg/dL (8.5-10.1)
[2021-10-24] MEDS: InsuLIN REG 1unit/0.01ml Soln (100units/ml) SC SCH ×4 (06:55→22:00)
[2021-10-24] MEDS: ACCU-CHEK COMFORT CURVE STRIP VI SCH ×4 (06:56→22:31)
[2021-10-24] MEDS ORDERED: SODIUM CHLORIDE 0.9% 500 ML IV ONE (08:30)
[2021-10-24 09:44] LABS: INR 3.97 (0.9-1.15)
[2021-10-24] MEDS: ENOXAPARIN SOD 40 MG/0.4 ML SYRINGE SC SCH (10:54)
[2021-10-24] MEDS ORDERED: SODIUM CHLORIDE 0.9% 1,000 ML IV SCH (13:30)
[2021-10-24 17:10] LABS: BUN/Creatinine Ratio 25.2; Potassium 4.6 mmol/L (3.5-5.1)
[2021-10-24] MEDS: SODIUM CHLORIDE 0.9% 1,000 ML IV SCH (20:09)
[2021-10-24] MEDS ORDERED: VANCOMYCIN 1GM/250ML 250 ML IV SCH (21:00)
[2021-10-24] MEDS: VANCOMYCIN 1GM/250ML 250 ML IV SCH (22:30)
[2021-10-25] MEDS: PIPERACILLIN-TAZOB 2.25GM 50 ML IV SCH ×4 (02:44→20:30)
[2021-10-25] MEDS: MORPHINE SULFATE INJ 2 MG/ml SYRG IV PRN (03:04)
[2021-10-25] MEDS: SODIUM CHLORIDE 0.9% 1,000 ML IV SCH ×2 (04:31→14:00)
[2021-10-25] MEDS: NOREPINEPHRINE 8 MG/250ML KIT 250 ML IV SCH (04:32)
[2021-10-25 06:05] LABS: Basophils # (auto) 0 10 ^3/uL (0-0.2); Eosinophils # (auto) 0.2 10 ^3/uL (0-0.8); Mean Corpuscular Volume 79.7 fL (80.0-100.0); Monocytes # (auto) 0.3 10 ^3/uL (0-1.3)
[2021-10-25 06:07] LABS: Basophils % (auto) 0.2 % (0.0-2.0); Eosinophils % (auto) 1.9 % (0.0-7.0); Hematocrit 36.9 % (41.0-53.0); Hemoglobin 12.2 g/dL (13.5-17.5); Lymphocytes # (auto) 0.5 10 ^3/uL (0.4-5.4); Lymphocytes % (auto) 3.8 % (10.0-50.0); Mean Corpuscular Hemoglobin 26.3 pg (28.0-32.0); Monocytes % (auto) 2.6 % (0.0-12.0); Neutrophils # (auto) 10.9 10 ^3/uL (1.6-8.6); Neutrophils % (auto) 91.5 % (37.0-80.0); Nucleated Red Blood Cells % 0.1 %; Red Blood Cells 4.63 10^6/uL (4.5-5.90); White Blood Cell 11.9 10^3/uL (4.4-10.8)
[2021-10-25 06:14] LABS: BUN/Creatinine Ratio 26.5; Calcium 7.3 mg/dL (8.5-10.1); Potassium 5.1 mmol/L (3.5-5.1)
[2021-10-25 06:24] LABS: Red Cell Distribution Width 21.7 % (11.8-14.3)
[2021-10-25] MEDS: ACCU-CHEK COMFORT CURVE STRIP VI SCH ×4 (06:53→22:27)
[2021-10-25] MEDS: InsuLIN REG 1unit/0.01ml Soln (100units/ml) SC SCH ×4 (06:53→22:00)
[2021-10-25] MEDS ORDERED: SODIUM CHLORIDE 0.9% 1,000 ML IV ONE ×3 (08:15→13:45)
[2021-10-25] MEDS ORDERED: SODIUM CHLORIDE 0.9% 1,000 ML IV SCH (08:15)
[2021-10-25] MEDS ORDERED: MIDODRINE HCL 10 MG TAB PO ONE (08:45)
[2021-10-25] MEDS ORDERED: MORPHINE SULFATE INJ 2 MG/ml SYRG IV PRN (09:15)
[2021-10-25] MEDS ORDERED: NITROGLYCERIN 0.4 MG SL TAB SL PRN (09:15)
[2021-10-25] MEDS: ENOXAPARIN SOD 40 MG/0.4 ML SYRINGE SC SCH (10:35)
[2021-10-25] MEDS: MIDODRINE HCL 10 MG TAB PO SCH ×2 (12:40→18:14)
[2021-10-25] MEDS ORDERED: FUROSEMIDE 40 MG/4 ML VIAL IV ONE (19:30)
[2021-10-25] MEDS: VANCOMYCIN 1GM/250ML 250 ML IV SCH (22:35)
[2021-10-26] MEDS: PIPERACILLIN-TAZOB 2.25GM 50 ML IV SCH ×4 (02:45→20:00)
[2021-10-26] MEDS ORDERED: HALOPERIDOL LACTATE 5 MG/ML INJ VIAL IM ONE ×2 (03:30→04:30)
[2021-10-26] MEDS: NOREPINEPHRINE 8 MG/250ML KIT 250 ML IV SCH (04:15)
[2021-10-26] MEDS: MIDODRINE HCL 10 MG TAB PO SCH ×3 (06:00→18:19)
[2021-10-26] MEDS: FUROSEMIDE 40 MG/4 ML VIAL IV SCH ×2 (06:40→18:20)
[2021-10-26 07:49] LABS: Basophils # (auto) 0 10 ^3/uL (0-0.2); Eosinophils # (auto) 0.1 10 ^3/uL (0-0.8); Eosinophils % (auto) 0.8 % (0.0-7.0); Hemoglobin 11.7 g/dL (13.5-17.5); Monocytes # (auto) 0.5 10 ^3/uL (0-1.3)
[2021-10-26 07:51] LABS: Basophils % (auto) 0.1 % (0.0-2.0); Hematocrit 36.2 % (41.0-53.0); Lymphocytes # (auto) 0.4 10 ^3/uL (0.4-5.4); Lymphocytes % (auto) 3.3 % (10.0-50.0); Mean Corpuscular Hemoglobin 25.7 pg (28.0-32.0); Mean Corpuscular Hgb Conc. 32.2 g/dL (32.0-36.0); Mean Corpuscular Volume 79.9 fL (80.0-100.0); Monocytes % (auto) 3.7 % (0.0-12.0); Neutrophils # (auto) 12.2 10 ^3/uL (1.6-8.6); Neutrophils % (auto) 92.1 % (37.0-80.0); Nucleated Red Blood Cells % 0.1 %; Red Blood Cells 4.53 10^6/uL (4.5-5.90); White Blood Cell 13.3 10^3/uL (4.4-10.8)
[2021-10-26 07:55] LABS: BUN/Creatinine Ratio 33.8; Calcium 7.5 mg/dL (8.5-10.1); Potassium 4.9 mmol/L (3.5-5.1)
[2021-10-26] MEDS: InsuLIN REG 1unit/0.01ml Soln (100units/ml) SC SCH ×4 (08:14→22:00)
[2021-10-26] MEDS: ACCU-CHEK COMFORT CURVE STRIP VI SCH ×4 (08:14→22:00)
[2021-10-26] MEDS: DEXTROSE (50%) 50ML SYRG IV PRN ×2 (08:18→23:48)
[2021-10-26] MEDS ORDERED: LORazepam 2MG/ML-1ML VIAL IV ONE (09:00)
[2021-10-26] MEDS ORDERED: LORazepam 2MG/ML-1ML VIAL IV PRN (18:15)
[2021-10-26 22:00] VITALS: BP 104/69
[2021-10-26] MEDS: VANCOMYCIN 1GM/250ML 250 ML IV SCH (22:00)
[2021-10-27] MEDS ORDERED: LORazepam 2MG/ML-1ML VIAL IV PRN ×2 (01:45→18:00)
[2021-10-27] MEDS: PIPERACILLIN-TAZOB 2.25GM 50 ML IV SCH ×4 (02:12→20:29)
[2021-10-27 04:00] VITALS: BP 106/67
[2021-10-27 06:37] LABS: Basophils # (auto) 0 10 ^3/uL (0-0.2); Eosinophils # (auto) 0.2 10 ^3/uL (0-0.8); Lymphocytes % (auto) 6.4 % (10.0-50.0); Mean Corpuscular Hemoglobin 26.1 pg (28.0-32.0); Monocytes # (auto) 0.4 10 ^3/uL (0-1.3); Red Blood Cells 4.22 10^6/uL (4.5-5.90)
[2021-10-27 06:40] LABS: Basophils % (auto) 0.2 % (0.0-2.0); Eosinophils % (auto) 2.4 % (0.0-7.0); Hematocrit 32.7 % (41.0-53.0); Lymphocytes # (auto) 0.6 10 ^3/uL (0.4-5.4); Mean Corpuscular Hgb Conc. 33.6 g/dL (32.0-36.0); Mean Corpuscular Volume 77.5 fL (80.0-100.0); Monocytes % (auto) 4.4 % (0.0-12.0); Neutrophils # (auto) 8.7 10 ^3/uL (1.6-8.6); Neutrophils % (auto) 86.6 % (37.0-80.0); Nucleated Red Blood Cells % 0.1 %; Red Cell Distribution Width 21.8 % (11.8-14.3); White Blood Cell 10.1 10^3/uL (4.4-10.8)
[2021-10-27 06:50] LABS: BUN/Creatinine Ratio 35.9; Calcium 7.6 mg/dL (8.5-10.1); Potassium 3.3 mmol/L (3.5-5.1)
[2021-10-27] MEDS: InsuLIN REG 1unit/0.01ml Soln (100units/ml) SC SCH ×4 (07:00→23:20)
[2021-10-27] MEDS: MIDODRINE HCL 10 MG TAB PO SCH ×3 (07:01→17:24)
[2021-10-27] MEDS: FUROSEMIDE 40 MG/4 ML VIAL IV SCH (07:01)
[2021-10-27] MEDS: ACCU-CHEK COMFORT CURVE STRIP VI SCH ×4 (07:02→23:20)
[2021-10-27] MEDS ORDERED: LEVO500T31 PO (07:03)
[2021-10-27] MEDS ORDERED: POTASSIUM CHL 20MEQ/100ML 100 ML IV SCH ×2 (07:30→08:00)
[2021-10-27 08:44] VITALS: BP 109/69
[2021-10-27 13:07] VITALS: BP 124/67
[2021-10-27 16:13] VITALS: BP 111/72
[2021-10-27 22:00] VITALS: BP 111/78
[2021-10-27] MEDS: ALBUTEROL SULF 2.5 MG/0.5ML(0.5%) NEB SOLN NEB PRN (23:59)
[2021-10-28] MEDS: PIPERACILLIN-TAZOB 2.25GM 50 ML IV SCH ×2 (04:09→09:34)
[2021-10-28] MEDS: ALBUTEROL SULF 2.5 MG/0.5ML(0.5%) NEB SOLN NEB PRN ×3 (04:37→19:15)
[2021-10-28] MEDS: IPRATROPIUM BROM 0.5 MG/2.5ML INH SOL NEB PRN ×4 (04:37→19:15)
[2021-10-28 04:42] VITALS: BP 125/83
[2021-10-28] MEDS: MIDODRINE HCL 10 MG TAB PO SCH ×3 (06:00→17:40)
[2021-10-28] MEDS: InsuLIN REG 1unit/0.01ml Soln (100units/ml) SC SCH ×4 (06:20→22:18)
[2021-10-28] MEDS: ACCU-CHEK COMFORT CURVE STRIP VI SCH ×4 (06:20→21:56)
[2021-10-28 07:27] LABS: Lymphocytes # (auto) 0.9 10 ^3/uL (0.4-5.4); Monocytes # (auto) 0.5 10 ^3/uL (0-1.3); Nucleated Red Blood Cells % 0.2 %
[2021-10-28 07:30] LABS: Basophils # (auto) 0 10 ^3/uL (0-0.2); Basophils % (auto) 0.3 % (0.0-2.0); Eosinophils # (auto) 0.2 10 ^3/uL (0-0.8); Eosinophils % (auto) 2.2 % (0.0-7.0); Hematocrit 32.4 % (41.0-53.0); Lymphocytes % (auto) 9.3 % (10.0-50.0); Mean Corpuscular Volume 76.5 fL (80.0-100.0); Monocytes % (auto) 5.1 % (0.0-12.0); Neutrophils # (auto) 8.2 10 ^3/uL (1.6-8.6); Neutrophils % (auto) 83.1 % (37.0-80.0); Red Blood Cells 4.24 10^6/uL (4.5-5.90); White Blood Cell 9.9 10^3/uL (4.4-10.8)
[2021-10-28 07:52] LABS: BUN/Creatinine Ratio 34.1; Calcium 7.6 mg/dL (8.5-10.1); Potassium 3.3 mmol/L (3.5-5.1)
[2021-10-28 09:00] VITALS: BP 122/80
[2021-10-28 09:17] LABS: Red Cell Distribution Width 22.1 % (11.8-14.3)
[2021-10-28] MEDS ORDERED: FUROSEMIDE 40 MG/4 ML VIAL IV SCH (10:00)
[2021-10-28] MEDS ORDERED: POTASSIUM CHL 20 Meq TABLET PO ONE (11:15)
[2021-10-28 13:00] VITALS: BP 108/78
[2021-10-28] MEDS: FUROSEMIDE 40 MG/4 ML VIAL IV SCH ×2 (13:16→21:56)
[2021-10-28 17:28] VITALS: BP 136/79
[2021-10-28] MEDS: ceFAZolin 2 GM in D5W 5% 100 ML IV SCH ×2 (17:37→21:55)
[2021-10-28 21:27] VITALS: BP 111/70
[2021-10-29] MEDS: MIDODRINE HCL 10 MG TAB PO SCH ×2 (05:03→12:00)
[2021-10-29] MEDS: ceFAZolin 2 GM in D5W 5% 100 ML IV SCH ×3 (05:03→21:26)
[2021-10-29 05:11] VITALS: BP 132/81
[2021-10-29 06:17] LABS: Eosinophils # (auto) 0.3 10 ^3/uL (0-0.8); Eosinophils % (auto) 3.8 % (0.0-7.0); Hemoglobin 10.9 g/dL (13.5-17.5); Lymphocytes # (auto) 1.3 10 ^3/uL (0.4-5.4); Monocytes # (auto) 0.5 10 ^3/uL (0-1.3); Monocytes % (auto) 5.5 % (0.0-12.0)
[2021-10-29 06:20] LABS: Basophils # (auto) 0 10 ^3/uL (0-0.2); Basophils % (auto) 0.3 % (0.0-2.0); Lymphocytes % (auto) 14.9 % (10.0-50.0); Mean Corpuscular Volume 76.5 fL (80.0-100.0); Neutrophils # (auto) 6.8 10 ^3/uL (1.6-8.6); Neutrophils % (auto) 75.5 % (37.0-80.0); Nucleated Red Blood Cells % 0.4 %; Red Blood Cells 4.19 10^6/uL (4.5-5.90)
[2021-10-29 06:26] LABS: Red Cell Distribution Width 22.5 % (11.8-14.3)
[2021-10-29 06:27] LABS: Potassium 3.1 mmol/L (3.5-5.1)
[2021-10-29 06:31] LABS: BUN/Creatinine Ratio 28.2; Calcium 7.8 mg/dL (8.5-10.1)
[2021-10-29] MEDS: ACCU-CHEK COMFORT CURVE STRIP VI SCH ×4 (06:40→21:26)
[2021-10-29] MEDS: InsuLIN REG 1unit/0.01ml Soln (100units/ml) SC SCH ×4 (06:40→21:32)
[2021-10-29 08:00] VITALS: BP 155/98
[2021-10-29] MEDS: POTASSIUM CHL 20MEQ/100ML 100 ML IV SCH ×2 (09:00→11:00)
[2021-10-29] MEDS: FUROSEMIDE 40 MG/4 ML VIAL IV SCH ×2 (10:57→21:27)
[2021-10-29 12:00] VITALS: BP 136/85
[2021-10-29] MEDS: DEXTROSE (50%) 50ML SYRG IV PRN (12:14)
[2021-10-29 16:00] VITALS: BP 127/89
[2021-10-29] MEDS: POTASSIUM CHLORIDE 20 MEQ, LIDOCAINE 1% (LOCAL ANESTH.) 2 ML in SODIUM CHL 0.9% 100 ML IV SCH ×2 (17:19→19:51)
[2021-10-29] MEDS: ALBUTEROL SULF 2.5 MG/0.5ML(0.5%) NEB SOLN NEB PRN (21:51)
[2021-10-29] MEDS: IPRATROPIUM BROM 0.5 MG/2.5ML INH SOL NEB PRN (21:51)
[2021-10-29 22:00] VITALS: BP 137/84
[2021-10-30 04:46] VITALS: BP 118/76
[2021-10-30] MEDS: ACCU-CHEK COMFORT CURVE STRIP VI SCH ×4 (05:58→21:37)
[2021-10-30] MEDS: ceFAZolin 2 GM in D5W 5% 100 ML IV SCH ×3 (05:58→21:37)
[2021-10-30] MEDS: InsuLIN REG 1unit/0.01ml Soln (100units/ml) SC SCH ×4 (06:00→21:38)
[2021-10-30 06:18] LABS: Basophils # (auto) 0 10 ^3/uL (0-0.2); Basophils % (auto) 0.3 % (0.0-2.0); Hemoglobin 11.1 g/dL (13.5-17.5); Mean Corpuscular Hemoglobin 25.8 pg (28.0-32.0); Mean Corpuscular Volume 76.7 fL (80.0-100.0); Monocytes # (auto) 0.5 10 ^3/uL (0-1.3)
[2021-10-30 06:20] LABS: Eosinophils # (auto) 0.2 10 ^3/uL (0-0.8); Eosinophils % (auto) 2.1 % (0.0-7.0); Hematocrit 33.1 % (41.0-53.0); Lymphocytes # (auto) 1.1 10 ^3/uL (0.4-5.4); Lymphocytes % (auto) 9.9 % (10.0-50.0); Mean Corpuscular Hgb Conc. 33.6 g/dL (32.0-36.0); Monocytes % (auto) 4.7 % (0.0-12.0); Neutrophils # (auto) 9.5 10 ^3/uL (1.6-8.6); Nucleated Red Blood Cells % 0.2 %; Red Blood Cells 4.31 10^6/uL (4.5-5.90); White Blood Cell 11.4 10^3/uL (4.4-10.8)
[2021-10-30 06:33] LABS: Red Cell Distribution Width 22.3 % (11.8-14.3)
[2021-10-30 06:35] LABS: Calcium 7.9 mg/dL (8.5-10.1); Potassium 3.4 mmol/L (3.5-5.1)
[2021-10-30 06:37] LABS: BUN/Creatinine Ratio 25.4
[2021-10-30 08:00] VITALS: BP 111/70
[2021-10-30] MEDS: FUROSEMIDE 40 MG/4 ML VIAL IV SCH (11:15)
[2021-10-30 12:00] VITALS: BP 130/84
[2021-10-30] MEDS: IPRATROPIUM BROM 0.5 MG/2.5ML INH SOL NEB PRN ×2 (15:02→19:11)
[2021-10-30] MEDS: ALBUTEROL SULF 2.5 MG/0.5ML(0.5%) NEB SOLN NEB PRN ×2 (15:02→19:11)
[2021-10-30 16:00] VITALS: BP 130/76
[2021-10-30 16:49] VITALS: BP 130/84
[2021-10-30 22:00] VITALS: BP 127/84
[2021-10-31] MEDS: IPRATROPIUM BROM 0.5 MG/2.5ML INH SOL NEB PRN (01:38)
[2021-10-31] MEDS: ALBUTEROL SULF 2.5 MG/0.5ML(0.5%) NEB SOLN NEB PRN (01:38)
[2021-10-31 05:00] VITALS: BP 115/86
[2021-10-31 05:24] LABS: Basophils # (auto) 0 10 ^3/uL (0-0.2); Basophils % (auto) 0.2 % (0.0-2.0); Eosinophils # (auto) 0.2 10 ^3/uL (0-0.8); Eosinophils % (auto) 2.2 % (0.0-7.0); Hematocrit 33.7 % (41.0-53.0); Hemoglobin 11.3 g/dL (13.5-17.5); Lymphocytes # (auto) 1.4 10 ^3/uL (0.4-5.4); Lymphocytes % (auto) 12.9 % (10.0-50.0); Mean Corpuscular Hemoglobin 25.8 pg (28.0-32.0); Mean Corpuscular Hgb Conc. 33.5 g/dL (32.0-36.0); Mean Corpuscular Volume 77.1 fL (80.0-100.0); Monocytes # (auto) 0.5 10 ^3/uL (0-1.3); Monocytes % (auto) 4.5 % (0.0-12.0); Neutrophils # (auto) 8.6 10 ^3/uL (1.6-8.6); Neutrophils % (auto) 80.2 % (37.0-80.0); Red Blood Cells 4.37 10^6/uL (4.5-5.90); White Blood Cell 10.7 10^3/uL (4.4-10.8)
[2021-10-31 05:25] LABS: Red Cell Distribution Width 22.4 % (11.8-14.3)
[2021-10-31] MEDS: ceFAZolin 2 GM in D5W 5% 100 ML IV SCH ×2 (05:31→15:04)
[2021-10-31 06:21] LABS: BUN/Creatinine Ratio 26.2; Calcium 7.6 mg/dL (8.5-10.1); Potassium 3.6 mmol/L (3.5-5.1)
[2021-10-31] MEDS: ACCU-CHEK COMFORT CURVE STRIP VI SCH ×3 (06:33→18:05)
[2021-10-31] MEDS: InsuLIN REG 1unit/0.01ml Soln (100units/ml) SC SCH ×4 (06:38→22:00)
[2021-10-31 08:25] VITALS: BP 121/80
[2021-10-31] MEDS: FUROSEMIDE 40 MG/4 ML VIAL IV SCH (09:30)
[2021-10-31 13:03] VITALS: BP 152/94
[2021-10-31 16:43] VITALS: BP 131/88
[2021-10-31 22:00] VITALS: BP 126/72
[2021-11-01] MEDS: MORPHINE SULFATE INJ 2 MG/ml SYRG IV PRN ×2 (00:15→09:57)
[2021-11-01] MEDS: ceFAZolin 2 GM in D5W 5% 100 ML IV SCH ×4 (00:18→22:03)
[2021-11-01] MEDS: ACCU-CHEK COMFORT CURVE STRIP VI SCH ×5 (00:18→22:05)
[2021-11-01 05:00] VITALS: BP 111/69
[2021-11-01] MEDS: InsuLIN REG 1unit/0.01ml Soln (100units/ml) SC SCH ×4 (06:56→22:00)
[2021-11-01 07:52] LABS: Eosinophils # (auto) 0.1 10 ^3/uL (0-0.8)
[2021-11-01 07:54] LABS: Basophils # (auto) 0.2 10 ^3/uL (0-0.2); Basophils % (auto) 1.5 % (0.0-2.0); Eosinophils % (auto) 1.1 % (0.0-7.0); Hematocrit 32.3 % (41.0-53.0); Lymphocytes % (auto) 8.9 % (10.0-50.0); Mean Corpuscular Hemoglobin 26.2 pg (28.0-32.0); Monocytes # (auto) 0.4 10 ^3/uL (0-1.3); Monocytes % (auto) 3.5 % (0.0-12.0); Neutrophils # (auto) 9.3 10 ^3/uL (1.6-8.6); Nucleated Red Blood Cells % 0.3 %; White Blood Cell 10.9 10^3/uL (4.4-10.8)
[2021-11-01 07:59] LABS: Red Cell Distribution Width 21.8 % (11.8-14.3)
[2021-11-01 08:10] LABS: BUN/Creatinine Ratio 27.6; Calcium 7.4 mg/dL (8.5-10.1); Potassium 3.3 mmol/L (3.5-5.1)
[2021-11-01 08:47] VITALS: BP 127/84
[2021-11-01] MEDS: FUROSEMIDE 40 MG/4 ML VIAL IV SCH (09:57)
[2021-11-01 12:17] VITALS: BP 117/99
[2021-11-01 16:42] VITALS: BP 114/78
[2021-11-01 21:35] VITALS: BP 123/84
[2021-11-02 05:31] VITALS: BP 112/75
[2021-11-02] MEDS: ceFAZolin 2 GM in D5W 5% 100 ML IV SCH ×3 (06:00→21:43)
[2021-11-02] MEDS: InsuLIN REG 1unit/0.01ml Soln (100units/ml) SC SCH ×4 (06:47→21:44)
[2021-11-02] MEDS: ACCU-CHEK COMFORT CURVE STRIP VI SCH ×4 (07:00→21:22)
[2021-11-02 09:00] VITALS: BP 113/70
[2021-11-02 09:09] VITALS: BP 112/75
[2021-11-02] MEDS: FUROSEMIDE 40 MG/4 ML VIAL IV SCH (10:50)
[2021-11-02] MEDS: MORPHINE SULFATE INJ 2 MG/ml SYRG IV PRN ×2 (10:51→23:11)
[2021-11-02 12:41] VITALS: BP 108/72
[2021-11-02 17:00] VITALS: BP 129/88
[2021-11-02 22:00] VITALS: BP 150/87
[2021-11-03 05:00] VITALS: BP 132/82
[2021-11-03] MEDS: ceFAZolin 2 GM in D5W 5% 100 ML IV SCH ×3 (06:00→22:00)
[2021-11-03] MEDS: ACCU-CHEK COMFORT CURVE STRIP VI SCH ×4 (06:39→21:34)
[2021-11-03] MEDS: InsuLIN REG 1unit/0.01ml Soln (100units/ml) SC SCH ×4 (06:39→21:35)
[2021-11-03 09:00] VITALS: BP 114/66
[2021-11-03] MEDS: FUROSEMIDE 40 MG/4 ML VIAL IV SCH ×2 (11:28→22:00)
[2021-11-03] MEDS: POTASSIUM CHL 10 Meq TABLET PO SCH ×2 (11:29→22:00)
[2021-11-03] MEDS: MORPHINE SULFATE INJ 2 MG/ml SYRG IV PRN ×2 (11:49→19:09)
[2021-11-03 13:00] VITALS: BP 121/78
[2021-11-03] MEDS ORDERED: POLYETHYLENE GLYCOL 17 GM PWDR PO ONE (14:15)
[2021-11-03] MEDS ORDERED: BISACODYL 10 MG RECT SUPP PR PRN (14:15)
[2021-11-03 18:16] VITALS: BP 138/74
[2021-11-03] MEDS ORDERED: LACTULOSE 20Gm/30ML SOLN PO SCH (19:00)
[2021-11-03 22:00] VITALS: BP_SYST 125; BP_SYST 90; BP_DIAS 50; BP_DIAS 84
[2021-11-03] MEDS: SENNA 8.6 MG TAB PO SCH (22:00)
[2021-11-03] MEDS: POLYETHYLENE GLYCOL 17 GM PWDR PO SCH (22:00)
[2021-11-03 23:22] VITALS: BP 125/84
[2021-11-04] MEDS ORDERED: GLYCERIN ADULT RECTAL SUPP PR ONE
[2021-11-04] MEDS ORDERED: LACTULOSE 20Gm/30ML SOLN PO ONE
[2021-11-04 05:00] VITALS: BP 93/74
[2021-11-04] MEDS: ceFAZolin 2 GM in D5W 5% 100 ML IV SCH ×3 (06:27→21:59)
[2021-11-04] MEDS: InsuLIN REG 1unit/0.01ml Soln (100units/ml) SC SCH ×4 (06:32→22:00)
[2021-11-04] MEDS: ACCU-CHEK COMFORT CURVE STRIP VI SCH ×4 (07:00→22:06)
[2021-11-04 09:00] VITALS: BP 123/77
[2021-11-04] MEDS: POLYETHYLENE GLYCOL 17 GM PWDR PO SCH ×2 (09:34→22:04)
[2021-11-04] MEDS: FUROSEMIDE 40 MG/4 ML VIAL IV SCH ×2 (09:35→22:00)
[2021-11-04] MEDS: POTASSIUM CHL 10 Meq TABLET PO SCH ×2 (09:35→22:00)
[2021-11-04 13:00] VITALS: BP 118/86
[2021-11-04 17:00] VITALS: BP 99/73
[2021-11-04 22:00] VITALS: BP 100/57
[2021-11-04] MEDS: SENNA 8.6 MG TAB PO SCH (22:04)
[2021-11-05] MEDS: POTASSIUM CHL 10 Meq TABLET PO SCH ×3 (00:49→21:28)
[2021-11-05 05:00] VITALS: BP 109/72
[2021-11-05 05:46] LABS: Basophils # (auto) 0.1 10 ^3/uL (0-0.2); Basophils % (auto) 0.6 % (0.0-2.0); Eosinophils # (auto) 0.1 10 ^3/uL (0-0.8); Eosinophils % (auto) 1.2 % (0.0-7.0); Hematocrit 31.8 % (41.0-53.0); Hemoglobin 10.5 g/dL (13.5-17.5); Lymphocytes % (auto) 9.8 % (10.0-50.0); Mean Corpuscular Hemoglobin 26.1 pg (28.0-32.0); Mean Corpuscular Hgb Conc. 32.9 g/dL (32.0-36.0); Mean Corpuscular Volume 79.3 fL (80.0-100.0); Monocytes # (auto) 0.5 10 ^3/uL (0-1.3); Monocytes % (auto) 4.7 % (0.0-12.0); Neutrophils # (auto) 8.6 10 ^3/uL (1.6-8.6); Neutrophils % (auto) 83.7 % (37.0-80.0); Red Blood Cells 4.01 10^6/uL (4.5-5.90); White Blood Cell 10.3 10^3/uL (4.4-10.8)
[2021-11-05 05:57] LABS: Albumin 1.2 g/dL (3.4-5.0); Anion Gap 7 (5-15); Blood Urea Nitrogen 19 mg/dL (7-18); Calcium 7.2 mg/dL (8.5-10.1); Carbon Dioxide 27 mmol/L (21-32); Chloride 96 mmol/L (98-107); Glucose 110 mg/dL (74-106); Potassium 3.9 mmol/L (3.5-5.1); Sodium 130 mmol/L (136-145)
[2021-11-05 06:00] LABS: Alanine Aminotransferase < 6 U/L (16-61); Alkaline Phosphatase 424 U/L (45-117); Aspartate Aminotransferase 55 U/L (15-37); BUN/Creatinine Ratio 29.2; Bilirubin, Total 1.5 mg/dL (0.2-1.0); GFR African American 160 mL/min; GFR Non-African American 132 mL/min; Total Protein 5.5 g/dL (6.4-8.2)
[2021-11-05 06:01] LABS: Red Cell Distribution Width 23.2 % (11.8-14.3)
[2021-11-05] MEDS: ceFAZolin 2 GM in D5W 5% 100 ML IV SCH ×3 (06:25→21:27)
[2021-11-05] MEDS: ACCU-CHEK COMFORT CURVE STRIP VI SCH ×4 (06:26→21:28)
[2021-11-05] MEDS: InsuLIN REG 1unit/0.01ml Soln (100units/ml) SC SCH ×4 (06:26→21:28)
[2021-11-05] MEDS: POLYETHYLENE GLYCOL 17 GM PWDR PO SCH ×2 (08:27→21:14)
[2021-11-05 09:00] VITALS: BP 100/64
[2021-11-05] MEDS: FUROSEMIDE 40 MG/4 ML VIAL IV SCH ×2 (10:15→21:27)
[2021-11-05 13:00] VITALS: BP 98/60
[2021-11-05 16:40] VITALS: BP 99/61
[2021-11-05] MEDS: SENNA 8.6 MG TAB PO SCH (21:14)
[2021-11-05 21:31] VITALS: BP 117/74
[2021-11-06 05:00] VITALS: BP 121/80
[2021-11-06] MEDS: ACCU-CHEK COMFORT CURVE STRIP VI SCH ×4 (05:35→21:59)
[2021-11-06] MEDS: InsuLIN REG 1unit/0.01ml Soln (100units/ml) SC SCH ×4 (05:35→21:59)
[2021-11-06] MEDS: ceFAZolin 2 GM in D5W 5% 100 ML IV SCH ×3 (05:35→21:59)
[2021-11-06 08:00] VITALS: BP 107/72
[2021-11-06] MEDS: FUROSEMIDE 40 MG/4 ML VIAL IV SCH ×2 (09:29→22:00)
[2021-11-06] MEDS: POTASSIUM CHL 10 Meq TABLET PO SCH ×2 (09:29→21:59)
[2021-11-06] MEDS: POLYETHYLENE GLYCOL 17 GM PWDR PO SCH ×2 (09:49→21:59)
[2021-11-06 12:00] VITALS: BP 119/81
[2021-11-06 16:00] VITALS: BP 120/78
[2021-11-06] MEDS: SENNA 8.6 MG TAB PO SCH (21:59)
[2021-11-06 22:00] VITALS: BP 125/65
[2021-11-07] MEDS: ACCU-CHEK COMFORT CURVE STRIP VI SCH ×4 (05:43→22:47)
[2021-11-07] MEDS: ceFAZolin 2 GM in D5W 5% 100 ML IV SCH ×3 (05:43→21:38)
[2021-11-07] MEDS: InsuLIN REG 1unit/0.01ml Soln (100units/ml) SC SCH ×4 (05:43→22:48)
[2021-11-07 05:44] VITALS: BP 105/70
[2021-11-07 06:53] LABS: Eosinophils # (auto) 0.1 10 ^3/uL (0-0.8); Lymphocytes # (auto) 1.8 10 ^3/uL (0.4-5.4); Monocytes # (auto) 0.5 10 ^3/uL (0-1.3); White Blood Cell 8.1 10^3/uL (4.4-10.8)
[2021-11-07 06:57] LABS: Basophils # (auto) 0 10 ^3/uL (0-0.2); Basophils % (auto) 0.6 % (0.0-2.0); Eosinophils % (auto) 1.6 % (0.0-7.0); Hemoglobin 10.3 g/dL (13.5-17.5); Lymphocytes % (auto) 21.8 % (10.0-50.0); Mean Corpuscular Hemoglobin 26.1 pg (28.0-32.0); Mean Corpuscular Hgb Conc. 33.1 g/dL (32.0-36.0); Mean Corpuscular Volume 78.7 fL (80.0-100.0); Monocytes % (auto) 6.4 % (0.0-12.0); Neutrophils # (auto) 5.6 10 ^3/uL (1.6-8.6); Neutrophils % (auto) 69.6 % (37.0-80.0); Nucleated Red Blood Cells % 0.1 %; Red Blood Cells 3.93 10^6/uL (4.5-5.90)
[2021-11-07 07:09] LABS: Red Cell Distribution Width 24.1 % (11.8-14.3)
[2021-11-07 07:15] LABS: Albumin 1.3 g/dL (3.4-5.0); Anion Gap 8 (5-15); Blood Urea Nitrogen 14 mg/dL (7-18); Calcium 7.6 mg/dL (8.5-10.1); Carbon Dioxide 29 mmol/L (21-32); Chloride 94 mmol/L (98-107); Glucose 137 mg/dL (74-106); Potassium 3.9 mmol/L (3.5-5.1); Sodium 131 mmol/L (136-145)
[2021-11-07 07:18] LABS: Alanine Aminotransferase < 6 U/L (16-61); Alkaline Phosphatase 464 U/L (45-117); Aspartate Aminotransferase 61 U/L (15-37); BUN/Creatinine Ratio 21.5; Bilirubin, Total 1.3 mg/dL (0.2-1.0); GFR African American 160 mL/min; GFR Non-African American 132 mL/min; Total Protein 6.3 g/dL (6.4-8.2)
[2021-11-07 09:00] VITALS: BP 139/87
[2021-11-07] MEDS: POLYETHYLENE GLYCOL 17 GM PWDR PO SCH ×2 (09:35→21:38)
[2021-11-07] MEDS: POTASSIUM CHL 10 Meq TABLET PO SCH ×2 (09:46→21:38)
[2021-11-07] MEDS: HYDROcodone-ACET 10/325MG TAB PO PRN (09:46)
[2021-11-07] MEDS: FUROSEMIDE 40 MG/4 ML VIAL IV SCH ×2 (09:47→21:38)
[2021-11-07 14:00] VITALS: BP 110/75
[2021-11-07 17:00] VITALS: BP 122/87
[2021-11-07] MEDS: SENNA 8.6 MG TAB PO SCH (21:39)
[2021-11-07 22:06] VITALS: BP 121/74
[2021-11-08] MEDS: HYDROcodone-ACET 10/325MG TAB PO PRN ×2 (04:49→21:39)
[2021-11-08 05:00] VITALS: BP 125/91
[2021-11-08] MEDS: ceFAZolin 2 GM in D5W 5% 100 ML IV SCH ×3 (05:10→21:09)
[2021-11-08] MEDS: ACCU-CHEK COMFORT CURVE STRIP VI SCH ×4 (06:16→21:10)
[2021-11-08] MEDS: InsuLIN REG 1unit/0.01ml Soln (100units/ml) SC SCH ×4 (06:16→21:39)
[2021-11-08 06:39] LABS: Albumin 1.2 g/dL (3.4-5.0); Anion Gap 6 (5-15); Blood Urea Nitrogen 15 mg/dL (7-18); Calcium 7.6 mg/dL (8.5-10.1); Carbon Dioxide 31 mmol/L (21-32); Chloride 95 mmol/L (98-107); Glucose 87 mg/dL (74-106); Potassium 4.1 mmol/L (3.5-5.1); Sodium 132 mmol/L (136-145)
[2021-11-08 06:41] LABS: Alanine Aminotransferase < 6 U/L (16-61); Alkaline Phosphatase 416 U/L (45-117); Aspartate Aminotransferase 56 U/L (15-37); Bilirubin, Total 1.1 mg/dL (0.2-1.0); GFR African American 176 mL/min; GFR Non-African American 145 mL/min; Total Protein 6.1 g/dL (6.4-8.2)
[2021-11-08 06:42] LABS: Basophils # (auto) 0.1 10 ^3/uL (0-0.2); Eosinophils # (auto) 0.3 10 ^3/uL (0-0.8); Mean Corpuscular Hgb Conc. 32.9 g/dL (32.0-36.0); Monocytes # (auto) 0.5 10 ^3/uL (0-1.3); Nucleated Red Blood Cells % 0.1 %
[2021-11-08 06:46] LABS: Basophils % (auto) 0.9 % (0.0-2.0); Eosinophils % (auto) 5.5 % (0.0-7.0); Hematocrit 30.4 % (41.0-53.0); Lymphocytes # (auto) 1.2 10 ^3/uL (0.4-5.4); Monocytes % (auto) 8.1 % (0.0-12.0); Neutrophils # (auto) 3.9 10 ^3/uL (1.6-8.6); Neutrophils % (auto) 65.5 % (37.0-80.0); Red Blood Cells 3.86 10^6/uL (4.5-5.90); White Blood Cell 5.9 10^3/uL (4.4-10.8)
[2021-11-08 06:56] LABS: Red Cell Distribution Width 24.3 % (11.8-14.3)
[2021-11-08 09:00] VITALS: BP 110/75
[2021-11-08] MEDS: POTASSIUM CHL 10 Meq TABLET PO SCH ×2 (10:30→21:09)
[2021-11-08] MEDS: POLYETHYLENE GLYCOL 17 GM PWDR PO SCH ×2 (10:30→21:09)
[2021-11-08] MEDS: FUROSEMIDE 40 MG/4 ML VIAL IV SCH ×2 (10:34→21:09)
[2021-11-08 13:00] VITALS: BP 141/95
[2021-11-08 17:00] VITALS: BP 85/45
[2021-11-08] MEDS: SENNA 8.6 MG TAB PO SCH (21:10)
[2021-11-08 22:00] VITALS: BP 100/60
[2021-11-09 05:00] VITALS: BP 109/73
[2021-11-09] MEDS: ceFAZolin 2 GM in D5W 5% 100 ML IV SCH ×3 (05:08→22:32)
[2021-11-09] MEDS: ACCU-CHEK COMFORT CURVE STRIP VI SCH ×4 (05:08→22:34)
[2021-11-09] MEDS: InsuLIN REG 1unit/0.01ml Soln (100units/ml) SC SCH ×4 (05:44→22:43)
[2021-11-09 07:46] LABS: Hemoglobin 11.2 g/dL (13.5-17.5); Lymphocytes # (auto) 1.3 10 ^3/uL (0.4-5.4); Mean Corpuscular Hemoglobin 25.9 pg (28.0-32.0); Monocytes # (auto) 0.4 10 ^3/uL (0-1.3); Neutrophils # (auto) 3.5 10 ^3/uL (1.6-8.6); White Blood Cell 5.5 10^3/uL (4.4-10.8)
[2021-11-09 07:52] LABS: Basophils # (auto) 0.1 10 ^3/uL (0-0.2); Basophils % (auto) 1.1 % (0.0-2.0); Eosinophils # (auto) 0.3 10 ^3/uL (0-0.8); Eosinophils % (auto) 4.7 % (0.0-7.0); Hematocrit 35.4 % (41.0-53.0); Lymphocytes % (auto) 23.8 % (10.0-50.0); Mean Corpuscular Hgb Conc. 31.7 g/dL (32.0-36.0); Mean Corpuscular Volume 81.7 fL (80.0-100.0); Monocytes % (auto) 7.4 % (0.0-12.0); Nucleated Red Blood Cells % 0.2 %; Red Blood Cells 4.33 10^6/uL (4.5-5.90)
[2021-11-09 07:53] LABS: Albumin 1.1 g/dL (3.4-5.0); Calcium 7.4 mg/dL (8.5-10.1); Potassium 4.9 mmol/L (3.5-5.1)
[2021-11-09 07:56] LABS: BUN/Creatinine Ratio 24.4
[2021-11-09 07:57] LABS: Total Protein 6.3 g/dL (6.4-8.2)
[2021-11-09 08:43] LABS: Red Cell Distribution Width 24.5 % (11.8-14.3)
[2021-11-09 09:00] VITALS: BP 131/86
[2021-11-09] MEDS: POTASSIUM CHL 10 Meq TABLET PO SCH ×2 (10:23→22:33)
[2021-11-09] MEDS: POLYETHYLENE GLYCOL 17 GM PWDR PO SCH ×2 (10:24→22:33)
[2021-11-09] MEDS: FUROSEMIDE 40 MG/4 ML VIAL IV SCH ×2 (10:33→22:33)
[2021-11-09 13:00] VITALS: BP 115/72
[2021-11-09 17:00] VITALS: BP 138/78
[2021-11-09] MEDS: HYDROcodone-ACET 10/325MG TAB PO PRN (18:24)
[2021-11-09 22:00] VITALS: BP 112/71
[2021-11-09] MEDS: SENNA 8.6 MG TAB PO SCH (22:34)
[2021-11-10 05:00] VITALS: BP 123/82
[2021-11-10] MEDS: ceFAZolin 2 GM in D5W 5% 100 ML IV SCH ×3 (05:53→21:44)
[2021-11-10] MEDS: ACCU-CHEK COMFORT CURVE STRIP VI SCH ×4 (05:53→23:59)
[2021-11-10] MEDS: InsuLIN REG 1unit/0.01ml Soln (100units/ml) SC SCH ×3 (05:53→17:01)
[2021-11-10 06:14] LABS: Eosinophils # (auto) 0.3 10 ^3/uL (0-0.8); Monocytes # (auto) 0.8 10 ^3/uL (0-1.3); Neutrophils # (auto) 3.6 10 ^3/uL (1.6-8.6); White Blood Cell 6.3 10^3/uL (4.4-10.8)
[2021-11-10 06:16] LABS: Basophils # (auto) 0.1 10 ^3/uL (0-0.2); Eosinophils % (auto) 4.3 % (0.0-7.0); Hematocrit 33.9 % (41.0-53.0); Hemoglobin 10.7 g/dL (13.5-17.5); Lymphocytes # (auto) 1.6 10 ^3/uL (0.4-5.4); Lymphocytes % (auto) 24.9 % (10.0-50.0); Mean Corpuscular Hemoglobin 25.4 pg (28.0-32.0); Mean Corpuscular Hgb Conc. 31.7 g/dL (32.0-36.0); Mean Corpuscular Volume 79.9 fL (80.0-100.0); Monocytes % (auto) 12.3 % (0.0-12.0); Neutrophils % (auto) 57.5 % (37.0-80.0); Nucleated Red Blood Cells % 0.1 %; Red Blood Cells 4.24 10^6/uL (4.5-5.90)
[2021-11-10 06:18] LABS: Red Cell Distribution Width 24.2 % (11.8-14.3)
[2021-11-10 06:34] LABS: Chloride 94 mmol/L (98-107); Potassium 4.6 mmol/L (3.5-5.1); Sodium 128 mmol/L (136-145)
[2021-11-10 06:48] LABS: Alanine Aminotransferase < 6 U/L (16-61); Albumin 1.4 g/dL (3.4-5.0); Alkaline Phosphatase 464 U/L (45-117); Anion Gap 4 (5-15); Aspartate Aminotransferase 58 U/L (15-37); BUN/Creatinine Ratio 27.8; Blood Urea Nitrogen 20 mg/dL (7-18); Calcium 7.7 mg/dL (8.5-10.1); Carbon Dioxide 30 mmol/L (21-32); GFR African American 142 mL/min; GFR Non-African American 118 mL/min; Glucose 76 mg/dL (74-106); Total Protein 6.8 g/dL (6.4-8.2)
[2021-11-10] MEDS: POLYETHYLENE GLYCOL 17 GM PWDR PO SCH ×2 (09:56→22:12)
[2021-11-10] MEDS: POTASSIUM CHL 10 Meq TABLET PO SCH ×2 (09:56→22:11)
[2021-11-10 09:59] VITALS: BP 136/89
[2021-11-10] MEDS: FUROSEMIDE 40 MG/4 ML VIAL IV SCH ×2 (10:31→22:11)
[2021-11-10 22:00] VITALS: BP 114/78
[2021-11-10] MEDS: SENNA 8.6 MG TAB PO SCH (22:12)
[2021-11-10 22:48] VITALS: BP 114/78
[2021-11-11] MEDS: InsuLIN REG 1unit/0.01ml Soln (100units/ml) SC SCH ×5 (00:01→21:30)
[2021-11-11 05:00] VITALS: BP 112/62
[2021-11-11 05:58] LABS: Basophils # (auto) 0.1 10 ^3/uL (0-0.2); Eosinophils # (auto) 0.1 10 ^3/uL (0-0.8); Monocytes # (auto) 0.8 10 ^3/uL (0-1.3); Nucleated Red Blood Cells % 0.1 %
[2021-11-11 06:01] LABS: Basophils % (auto) 0.9 % (0.0-2.0); Eosinophils % (auto) 1.6 % (0.0-7.0); Hematocrit 29.9 % (41.0-53.0); Hemoglobin 9.8 g/dL (13.5-17.5); Lymphocytes # (auto) 1.5 10 ^3/uL (0.4-5.4); Mean Corpuscular Hemoglobin 25.8 pg (28.0-32.0); Mean Corpuscular Hgb Conc. 32.8 g/dL (32.0-36.0); Mean Corpuscular Volume 78.5 fL (80.0-100.0); Neutrophils # (auto) 4.2 10 ^3/uL (1.6-8.6); Neutrophils % (auto) 62.5 % (37.0-80.0); Red Blood Cells 3.81 10^6/uL (4.5-5.90); White Blood Cell 6.7 10^3/uL (4.4-10.8)
[2021-11-11 06:02] LABS: Red Cell Distribution Width 24.3 % (11.8-14.3)
[2021-11-11 06:15] LABS: Albumin 1.4 g/dL (3.4-5.0); Anion Gap 4 (5-15); Blood Urea Nitrogen 20 mg/dL (7-18); Calcium 7.8 mg/dL (8.5-10.1); Carbon Dioxide 33 mmol/L (21-32); Chloride 95 mmol/L (98-107); Glucose 58 mg/dL (74-106); Potassium 4.7 mmol/L (3.5-5.1); Sodium 132 mmol/L (136-145)
[2021-11-11 06:19] LABS: Alanine Aminotransferase < 6 U/L (16-61); Alkaline Phosphatase 431 U/L (45-117); Aspartate Aminotransferase 45 U/L (15-37); BUN/Creatinine Ratio 24.4; Bilirubin, Total 1.1 mg/dL (0.2-1.0); GFR African American 122 mL/min; GFR Non-African American 101 mL/min
[2021-11-11] MEDS: ACCU-CHEK COMFORT CURVE STRIP VI SCH ×4 (07:54→21:30)
[2021-11-11] MEDS: ceFAZolin 2 GM in D5W 5% 100 ML IV SCH (07:54)
[2021-11-11 08:00] VITALS: BP 133/86
[2021-11-11] MEDS: POLYETHYLENE GLYCOL 17 GM PWDR PO SCH ×2 (10:00→21:18)
[2021-11-11] MEDS: POTASSIUM CHL 10 Meq TABLET PO SCH ×2 (10:09→21:19)
[2021-11-11] MEDS: levoFLOXacin 500 MG TAB PO SCH (10:09)
[2021-11-11 12:00] VITALS: BP 132/75
[2021-11-11 16:00] VITALS: BP 105/75
[2021-11-11] MEDS: FUROSEMIDE 20 MG TAB PO SCH (17:44)
[2021-11-11] MEDS: SENNA 8.6 MG TAB PO SCH (21:18)
[2021-11-11 21:48] VITALS: BP 112/74
[2021-11-12 05:00] VITALS: BP 119/85
[2021-11-12] MEDS: FUROSEMIDE 20 MG TAB PO SCH ×2 (05:00→17:45)
[2021-11-12 05:15] LABS: Basophils # (auto) 0 10 ^3/uL (0-0.2); Basophils % (auto) 0.5 % (0.0-2.0); Eosinophils # (auto) 0.1 10 ^3/uL (0-0.8); Eosinophils % (auto) 1.4 % (0.0-7.0); Hematocrit 32.6 % (41.0-53.0); Hemoglobin 9.8 g/dL (13.5-17.5); Lymphocytes # (auto) 1.4 10 ^3/uL (0.4-5.4); Lymphocytes % (auto) 20.7 % (10.0-50.0); Mean Corpuscular Hemoglobin 25.3 pg (28.0-32.0); Mean Corpuscular Hgb Conc. 29.9 g/dL (32.0-36.0); Mean Corpuscular Volume 84.4 fL (80.0-100.0); Monocytes # (auto) 0.8 10 ^3/uL (0-1.3); Monocytes % (auto) 11.6 % (0.0-12.0); Neutrophils # (auto) 4.4 10 ^3/uL (1.6-8.6); Neutrophils % (auto) 65.8 % (37.0-80.0); Nucleated Red Blood Cells % 0.1 %; Red Blood Cells 3.86 10^6/uL (4.5-5.90); White Blood Cell 6.7 10^3/uL (4.4-10.8)
[2021-11-12 05:34] LABS: Albumin 1.4 g/dL (3.4-5.0); Calcium 8.1 mg/dL (8.5-10.1); Potassium 5.3 mmol/L (3.5-5.1)
[2021-11-12 05:37] LABS: Bilirubin, Total 1.6 mg/dL (0.2-1.0); Total Protein 7.3 g/dL (6.4-8.2)
[2021-11-12] MEDS: ACCU-CHEK COMFORT CURVE STRIP VI SCH ×4 (06:04→22:20)
[2021-11-12] MEDS: InsuLIN REG 1unit/0.01ml Soln (100units/ml) SC SCH ×4 (06:04→22:00)
[2021-11-12 09:00] VITALS: BP 98/63
[2021-11-12] MEDS: POTASSIUM CHL 10 Meq TABLET PO SCH ×2 (10:00→22:00)
[2021-11-12] MEDS: levoFLOXacin 500 MG TAB PO SCH (10:29)
[2021-11-12] MEDS: POLYETHYLENE GLYCOL 17 GM PWDR PO SCH ×2 (10:30→22:00)
[2021-11-12 13:00] VITALS: BP 104/61
[2021-11-12 16:39] VITALS: BP 125/85
[2021-11-12 22:00] VITALS: BP 104/70
[2021-11-12] MEDS: SENNA 8.6 MG TAB PO SCH (22:00)
[2021-11-12] MEDS: HYDROcodone-ACET 10/325MG TAB PO PRN (22:57)
[2021-11-13 05:00] VITALS: BP 114/77
[2021-11-13 06:13] LABS: Basophils # (auto) 0.1 10 ^3/uL (0-0.2); Basophils % (auto) 0.8 % (0.0-2.0); Eosinophils # (auto) 0.1 10 ^3/uL (0-0.8); Eosinophils % (auto) 1.5 % (0.0-7.0); Hematocrit 31.1 % (41.0-53.0); Hemoglobin 9.8 g/dL (13.5-17.5); Lymphocytes # (auto) 1.1 10 ^3/uL (0.4-5.4); Lymphocytes % (auto) 15.7 % (10.0-50.0); Mean Corpuscular Hemoglobin 25.4 pg (28.0-32.0); Mean Corpuscular Hgb Conc. 31.5 g/dL (32.0-36.0); Mean Corpuscular Volume 80.5 fL (80.0-100.0); Monocytes # (auto) 0.7 10 ^3/uL (0-1.3); Monocytes % (auto) 9.5 % (0.0-12.0); Neutrophils # (auto) 5.2 10 ^3/uL (1.6-8.6); Neutrophils % (auto) 72.5 % (37.0-80.0); Nucleated Red Blood Cells % 0.1 %; Red Blood Cells 3.87 10^6/uL (4.5-5.90); Red Cell Distribution Width 24.2 % (11.8-14.3); White Blood Cell 7.2 10^3/uL (4.4-10.8)
[2021-11-13 06:36] LABS: Potassium 5.1 mmol/L (3.5-5.1)
[2021-11-13] MEDS: InsuLIN REG 1unit/0.01ml Soln (100units/ml) SC SCH ×4 (06:38→21:35)
[2021-11-13] MEDS: FUROSEMIDE 20 MG TAB PO SCH ×2 (06:38→18:10)
[2021-11-13] MEDS: ACCU-CHEK COMFORT CURVE STRIP VI SCH ×4 (06:39→21:35)
[2021-11-13 06:44] LABS: Albumin 1.3 g/dL (3.4-5.0); BUN/Creatinine Ratio 26.4; Bilirubin, Total 1.3 mg/dL (0.2-1.0); Calcium 7.8 mg/dL (8.5-10.1); Total Protein 6.7 g/dL (6.4-8.2)
[2021-11-13 08:00] VITALS: BP 111/70
[2021-11-13] MEDS: POTASSIUM CHL 10 Meq TABLET PO SCH ×2 (09:42→21:05)
[2021-11-13] MEDS: POLYETHYLENE GLYCOL 17 GM PWDR PO SCH ×3 (09:43→21:05)
[2021-11-13] MEDS: levoFLOXacin 500 MG TAB PO SCH (09:43)
[2021-11-13 12:00] VITALS: BP 106/82
[2021-11-13 16:00] VITALS: BP 110/89
[2021-11-13] MEDS: SENNA 8.6 MG TAB PO SCH (21:05)
[2021-11-13 22:00] VITALS: BP 111/75
[2021-11-14 05:00] VITALS: BP 112/71
[2021-11-14] MEDS: FUROSEMIDE 20 MG TAB PO SCH ×2 (05:49→18:01)
[2021-11-14 06:04] LABS: Eosinophils # (auto) 0.1 10 ^3/uL (0-0.8); Eosinophils % (auto) 1.3 % (0.0-7.0); Lymphocytes # (auto) 1.4 10 ^3/uL (0.4-5.4); Mean Corpuscular Volume 81.3 fL (80.0-100.0); Monocytes # (auto) 0.8 10 ^3/uL (0-1.3)
[2021-11-14 06:08] LABS: Basophils # (auto) 0.1 10 ^3/uL (0-0.2); Basophils % (auto) 0.7 % (0.0-2.0); Hemoglobin 10.1 g/dL (13.5-17.5); Lymphocytes % (auto) 17.1 % (10.0-50.0); Mean Corpuscular Hemoglobin 25.7 pg (28.0-32.0); Mean Corpuscular Hgb Conc. 31.6 g/dL (32.0-36.0); Monocytes % (auto) 9.6 % (0.0-12.0); Neutrophils # (auto) 5.8 10 ^3/uL (1.6-8.6); Neutrophils % (auto) 71.3 % (37.0-80.0); Red Blood Cells 3.94 10^6/uL (4.5-5.90); White Blood Cell 8.1 10^3/uL (4.4-10.8)
[2021-11-14 06:20] LABS: Red Cell Distribution Width 24.2 % (11.8-14.3)
[2021-11-14 06:25] LABS: Potassium 4.7 mmol/L (3.5-5.1)
[2021-11-14] MEDS: ACCU-CHEK COMFORT CURVE STRIP VI SCH ×4 (06:31→21:42)
[2021-11-14] MEDS: InsuLIN REG 1unit/0.01ml Soln (100units/ml) SC SCH ×4 (06:32→21:45)
[2021-11-14 06:33] LABS: Albumin 1.4 g/dL (3.4-5.0); BUN/Creatinine Ratio 28.2; Bilirubin, Total 1.4 mg/dL (0.2-1.0); Total Protein 7.4 g/dL (6.4-8.2)
[2021-11-14 09:00] VITALS: BP 127/85
[2021-11-14] MEDS: levoFLOXacin 500 MG TAB PO SCH (09:17)
[2021-11-14] MEDS: HYDROcodone-ACET 10/325MG TAB PO PRN (09:24)
[2021-11-14] MEDS: POTASSIUM CHL 10 Meq TABLET PO SCH ×2 (09:25→21:14)
[2021-11-14] MEDS: POLYETHYLENE GLYCOL 17 GM PWDR PO SCH ×2 (09:26→21:14)
[2021-11-14 13:00] VITALS: BP 130/62
[2021-11-14 16:35] VITALS: BP 96/59
[2021-11-14] MEDS: SENNA 8.6 MG TAB PO SCH (21:14)
[2021-11-14 22:00] VITALS: BP 109/75
[2021-11-15 05:00] VITALS: BP 110/78
[2021-11-15 05:46] LABS: Basophils # (auto) 0.1 10 ^3/uL (0-0.2); Basophils % (auto) 1.1 % (0.0-2.0); Eosinophils # (auto) 0.2 10 ^3/uL (0-0.8); Lymphocytes # (auto) 1.4 10 ^3/uL (0.4-5.4); Nucleated Red Blood Cells % 0.1 %
[2021-11-15 05:48] LABS: Eosinophils % (auto) 2.2 % (0.0-7.0); Hematocrit 31.5 % (41.0-53.0); Lymphocytes % (auto) 17.2 % (10.0-50.0); Mean Corpuscular Hemoglobin 25.8 pg (28.0-32.0); Mean Corpuscular Hgb Conc. 31.7 g/dL (32.0-36.0); Mean Corpuscular Volume 81.2 fL (80.0-100.0); Monocytes # (auto) 0.8 10 ^3/uL (0-1.3); Monocytes % (auto) 9.9 % (0.0-12.0); Neutrophils # (auto) 5.5 10 ^3/uL (1.6-8.6); Neutrophils % (auto) 69.6 % (37.0-80.0); Red Blood Cells 3.88 10^6/uL (4.5-5.90); White Blood Cell 7.9 10^3/uL (4.4-10.8)
[2021-11-15] MEDS: FUROSEMIDE 20 MG TAB PO SCH ×2 (05:55→18:00)
[2021-11-15] MEDS: ACCU-CHEK COMFORT CURVE STRIP VI SCH ×4 (06:09→22:00)
[2021-11-15] MEDS: InsuLIN REG 1unit/0.01ml Soln (100units/ml) SC SCH ×4 (06:09→22:50)
[2021-11-15 06:18] LABS: Red Cell Distribution Width 24.3 % (11.8-14.3)
[2021-11-15] MEDS: levoFLOXacin 500 MG TAB PO SCH (08:37)
[2021-11-15] MEDS: HYDROcodone-ACET 10/325MG TAB PO PRN (08:38)
[2021-11-15] MEDS: POTASSIUM CHL 10 Meq TABLET PO SCH ×2 (09:13→22:00)
[2021-11-15] MEDS: POLYETHYLENE GLYCOL 17 GM PWDR PO SCH ×2 (09:13→22:00)
[2021-11-15 09:33] VITALS: BP 92/58
[2021-11-15 10:06] LABS: Potassium 4.8 mmol/L (3.5-5.1)
[2021-11-15 10:13] LABS: Albumin 1.5 g/dL (3.4-5.0); BUN/Creatinine Ratio 24.2; Bilirubin, Total 1.5 mg/dL (0.2-1.0); Total Protein 7.2 g/dL (6.4-8.2)
[2021-11-15 13:19] VITALS: BP 111/70
[2021-11-15 17:02] VITALS: BP 109/76
[2021-11-15] MEDS: SENNA 8.6 MG TAB PO SCH (22:00)
[2021-11-16 05:00] VITALS: BP 107/69
[2021-11-16 05:47] LABS: Basophils # (auto) 0.1 10 ^3/uL (0-0.2); Basophils % (auto) 1.1 % (0.0-2.0); Eosinophils # (auto) 0.2 10 ^3/uL (0-0.8); Eosinophils % (auto) 2.1 % (0.0-7.0); Hematocrit 31.4 % (41.0-53.0); Hemoglobin 10.2 g/dL (13.5-17.5); Lymphocytes % (auto) 11.1 % (10.0-50.0); Mean Corpuscular Hemoglobin 26.5 pg (28.0-32.0); Mean Corpuscular Hgb Conc. 32.4 g/dL (32.0-36.0); Mean Corpuscular Volume 81.8 fL (80.0-100.0); Monocytes # (auto) 0.7 10 ^3/uL (0-1.3); Monocytes % (auto) 7.1 % (0.0-12.0); Neutrophils # (auto) 7.3 10 ^3/uL (1.6-8.6); Neutrophils % (auto) 78.6 % (37.0-80.0); Nucleated Red Blood Cells % 0.1 %; Red Blood Cells 3.84 10^6/uL (4.5-5.90); White Blood Cell 9.3 10^3/uL (4.4-10.8)
[2021-11-16 05:48] LABS: Red Cell Distribution Width 24.9 % (11.8-14.3)
[2021-11-16 06:12] LABS: Albumin 1.5 g/dL (3.4-5.0); Calcium 7.9 mg/dL (8.5-10.1)
[2021-11-16 06:38] LABS: Potassium 5.7 mmol/L (3.5-5.1)
[2021-11-16] MEDS: InsuLIN REG 1unit/0.01ml Soln (100units/ml) SC SCH ×4 (06:57→22:35)
[2021-11-16] MEDS: FUROSEMIDE 20 MG TAB PO SCH ×2 (07:01→18:47)
[2021-11-16] MEDS: ACCU-CHEK COMFORT CURVE STRIP VI SCH ×4 (07:01→22:00)
[2021-11-16 07:17] LABS: BUN/Creatinine Ratio 23.3; Bilirubin, Total 1.5 mg/dL (0.2-1.0); Total Protein 7.3 g/dL (6.4-8.2)
[2021-11-16 09:00] VITALS: BP 95/62
[2021-11-16] MEDS: POTASSIUM CHL 10 Meq TABLET PO SCH ×2 (10:00→22:00)
[2021-11-16] MEDS: POLYETHYLENE GLYCOL 17 GM PWDR PO SCH ×2 (10:00→22:00)
[2021-11-16] MEDS: levoFLOXacin 500 MG TAB PO SCH (10:43)
[2021-11-16 13:00] VITALS: BP 106/64
[2021-11-16 22:00] VITALS: BP 100/64
[2021-11-16] MEDS: SENNA 8.6 MG TAB PO SCH (22:00)
[2021-11-17 05:00] VITALS: BP 94/70
[2021-11-17] MEDS: FUROSEMIDE 20 MG TAB PO SCH ×2 (05:39→18:13)
[2021-11-17] MEDS: ACCU-CHEK COMFORT CURVE STRIP VI SCH ×4 (05:40→22:35)
[2021-11-17] MEDS: InsuLIN REG 1unit/0.01ml Soln (100units/ml) SC SCH ×4 (05:40→22:35)
[2021-11-17 07:35] LABS: Eosinophils # (auto) 0.1 10 ^3/uL (0-0.8)
[2021-11-17 07:40] LABS: Basophils # (auto) 0.1 10 ^3/uL (0-0.2); Basophils % (auto) 0.5 % (0.0-2.0); Eosinophils % (auto) 0.7 % (0.0-7.0); Hematocrit 31.8 % (41.0-53.0); Hemoglobin 10.3 g/dL (13.5-17.5); Lymphocytes # (auto) 1.1 10 ^3/uL (0.4-5.4); Lymphocytes % (auto) 11.1 % (10.0-50.0); Mean Corpuscular Hemoglobin 26.5 pg (28.0-32.0); Mean Corpuscular Hgb Conc. 32.4 g/dL (32.0-36.0); Mean Corpuscular Volume 81.8 fL (80.0-100.0); Monocytes # (auto) 0.7 10 ^3/uL (0-1.3); Monocytes % (auto) 7.5 % (0.0-12.0); Neutrophils % (auto) 80.2 % (37.0-80.0); Nucleated Red Blood Cells % 0.1 %; Red Blood Cells 3.89 10^6/uL (4.5-5.90); White Blood Cell 9.9 10^3/uL (4.4-10.8)
[2021-11-17 07:51] LABS: Red Cell Distribution Width 24.4 % (11.8-14.3)
[2021-11-17 09:00] VITALS: BP 119/68
[2021-11-17 09:55] LABS: Albumin 1.5 g/dL (3.4-5.0); Calcium 7.9 mg/dL (8.5-10.1)
[2021-11-17 09:58] LABS: BUN/Creatinine Ratio 20.9; Bilirubin, Total 1.7 mg/dL (0.2-1.0); Total Protein 7.6 g/dL (6.4-8.2)
[2021-11-17] MEDS: POTASSIUM CHL 10 Meq TABLET PO SCH ×2 (11:52→21:46)
[2021-11-17] MEDS: levoFLOXacin 500 MG TAB PO SCH (11:52)
[2021-11-17] MEDS: POLYETHYLENE GLYCOL 17 GM PWDR PO SCH ×2 (11:52→21:46)
[2021-11-17 13:00] VITALS: BP 108/68
[2021-11-17] MEDS: HYDROcodone-ACET 10/325MG TAB PO PRN (13:02)
[2021-11-17 17:00] VITALS: BP 110/85
[2021-11-17] MEDS: HEPARIN SODIUM (PORCINE) 5000 UNITS/ML 1ML VIAL SC SCH (21:44)
[2021-11-17] MEDS: SENNA 8.6 MG TAB PO SCH (21:46)
[2021-11-18 05:00] VITALS: BP 94/63
[2021-11-18] MEDS: FUROSEMIDE 20 MG TAB PO SCH ×2 (06:00→17:41)
[2021-11-18] MEDS: ACCU-CHEK COMFORT CURVE STRIP VI SCH ×4 (06:52→22:00)
[2021-11-18] MEDS: InsuLIN REG 1unit/0.01ml Soln (100units/ml) SC SCH ×4 (06:52→22:00)
[2021-11-18 07:24] LABS: Hematocrit 31.2 % (41.0-53.0); Mean Corpuscular Hemoglobin 25.8 pg (28.0-32.0); Mean Corpuscular Hgb Conc. 32.2 g/dL (32.0-36.0); Mean Corpuscular Volume 80.1 fL (80.0-100.0); White Blood Cell 7.4 10^3/uL (4.4-10.8)
[2021-11-18 07:36] LABS: Potassium 4.1 mmol/L (3.5-5.1)
[2021-11-18 07:46] LABS: Albumin 1.4 g/dL (3.4-5.0); BUN/Creatinine Ratio 22.7; Bilirubin, Total 1.4 mg/dL (0.2-1.0); Calcium 7.8 mg/dL (8.5-10.1); Total Protein 6.9 g/dL (6.4-8.2)
[2021-11-18 07:47] LABS: Red Cell Distribution Width 24.3 % (11.8-14.3)
[2021-11-18 07:49] LABS: Basophils % (manual) 0 (0.0-2.0); Blast Cells 0; Metamyelocytes % 0; Myelocytes % 0; Promyelocytes % 0; Reactive Lymphocytes 0
[2021-11-18 08:13] LABS: Band Neutrophils % (manual) 1; Eosinophils % (manual) 3 (0-7); Lymphocytes % (manual) 14 (10.0-50.0); Monocytes % (manual) 7 (0-12)
[2021-11-18] MEDS: POLYETHYLENE GLYCOL 17 GM PWDR PO SCH ×2 (09:31→21:50)
[2021-11-18] MEDS: HEPARIN SODIUM (PORCINE) 5000 UNITS/ML 1ML VIAL SC SCH ×2 (09:31→21:51)
[2021-11-18] MEDS: levoFLOXacin 500 MG TAB PO SCH (09:31)
[2021-11-18] MEDS: POTASSIUM CHL 10 Meq TABLET PO SCH ×2 (09:31→21:50)
[2021-11-18 21:50] VITALS: BP 115/72
[2021-11-18] MEDS: SENNA 8.6 MG TAB PO SCH (21:50)
[2021-11-19] MEDS ORDERED: HYDROcodone-ACET 10/325MG TAB PO PRN (00:15)
[2021-11-19 04:06] VITALS: BP 119/79
[2021-11-19] MEDS: ACCU-CHEK COMFORT CURVE STRIP VI SCH ×4 (06:36→22:36)
[2021-11-19] MEDS: FUROSEMIDE 20 MG TAB PO SCH ×2 (06:36→18:25)
[2021-11-19] MEDS: InsuLIN REG 1unit/0.01ml Soln (100units/ml) SC SCH ×4 (06:37→22:50)
[2021-11-19 07:27] LABS: Basophils # (auto) 0.1 10 ^3/uL (0-0.2); Basophils % (auto) 0.6 % (0.0-2.0); Eosinophils # (auto) 0.2 10 ^3/uL (0-0.8)
[2021-11-19 07:29] LABS: Eosinophils % (auto) 2.2 % (0.0-7.0); Hematocrit 31.5 % (41.0-53.0); Lymphocytes # (auto) 1.1 10 ^3/uL (0.4-5.4); Lymphocytes % (auto) 11.3 % (10.0-50.0); Mean Corpuscular Hemoglobin 25.9 pg (28.0-32.0); Mean Corpuscular Hgb Conc. 31.9 g/dL (32.0-36.0); Mean Corpuscular Volume 81.3 fL (80.0-100.0); Monocytes # (auto) 0.7 10 ^3/uL (0-1.3); Monocytes % (auto) 7.1 % (0.0-12.0); Neutrophils # (auto) 7.6 10 ^3/uL (1.6-8.6); Neutrophils % (auto) 78.8 % (37.0-80.0); Red Blood Cells 3.87 10^6/uL (4.5-5.90); White Blood Cell 9.6 10^3/uL (4.4-10.8)
[2021-11-19 07:32] LABS: Red Cell Distribution Width 24.4 % (11.8-14.3)
[2021-11-19 07:49] LABS: Potassium 4.7 mmol/L (3.5-5.1)
[2021-11-19 07:53] LABS: Albumin 1.6 g/dL (3.4-5.0); BUN/Creatinine Ratio 22.8; Calcium 8.4 mg/dL (8.5-10.1)
[2021-11-19 07:55] LABS: Bilirubin, Total 1.6 mg/dL (0.2-1.0); Total Protein 7.3 g/dL (6.4-8.2)
[2021-11-19] MEDS: levoFLOXacin 500 MG TAB PO SCH (09:14)
[2021-11-19] MEDS: POTASSIUM CHL 10 Meq TABLET PO SCH ×2 (09:14→22:32)
[2021-11-19] MEDS: POLYETHYLENE GLYCOL 17 GM PWDR PO SCH ×2 (09:14→22:32)
[2021-11-19] MEDS: HEPARIN SODIUM (PORCINE) 5000 UNITS/ML 1ML VIAL SC SCH ×2 (09:14→22:34)
[2021-11-19 09:20] VITALS: BP 118/77
[2021-11-19 12:53] VITALS: BP 100/64
[2021-11-19 16:54] VITALS: BP 108/55
[2021-11-19 21:41] VITALS: BP 105/70
[2021-11-19] MEDS: SENNA 8.6 MG TAB PO SCH (22:33)
[2021-11-20] MEDS ORDERED: HALOPERIDOL LACTATE 5 MG/ML INJ VIAL IM PRN (00:15)
[2021-11-20 04:59] VITALS: BP 98/67
[2021-11-20] MEDS: FUROSEMIDE 20 MG TAB PO SCH (06:00)
[2021-11-20] MEDS: ACCU-CHEK COMFORT CURVE STRIP VI SCH ×2 (06:28→13:59)
[2021-11-20] MEDS: InsuLIN REG 1unit/0.01ml Soln (100units/ml) SC SCH ×2 (06:28→11:30)
[2021-11-20 08:30] VITALS: BP 103/65
[2021-11-20] MEDS: POLYETHYLENE GLYCOL 17 GM PWDR PO SCH (09:29)
[2021-11-20] MEDS: levoFLOXacin 500 MG TAB PO SCH (09:29)
[2021-11-20] MEDS: POTASSIUM CHL 10 Meq TABLET PO SCH (09:30)
[2021-11-20] MEDS: HEPARIN SODIUM (PORCINE) 5000 UNITS/ML 1ML VIAL SC SCH (09:40)
[2021-11-20 16:22] VITALS: BP 100/62
== END 2021-11-20 18:15 | disposition hospice, inpatient (51) | DRG 564 ==
LOC: EDUNIT# 17:14 → ER 17:14 → EDBD 17:14 → INTOOBSV 10-24 03:43 → OVERFLOW 10-24 03:43 → OBSVTOIN 10-25 10:36 → TELE-WESTW 10-26 21:00 → WEST WING 10-26 21:33 → TELE-WESTW 10-26 22:00
PROVIDERS: ADMIT Hospitalist; ATTEND Hospitalist
DX: T87.43 Infection of amputation stump, right lower extremity (principal); A41.01 Sepsis due to Methicillin susceptible Staphylococcus aureus; R65.21 Severe sepsis with septic shock; U07.1 COVID-19; N17.9 Acute kidney failure, unspecified; R18.8 Other ascites; L03.115 Cellulitis of right lower limb; I42.9 Cardiomyopathy, unspecified; I13.0 Hypertensive heart and chronic kidney disease with heart failure and stage 1 through stage 4 chronic kidney disease, or unspecified chronic kidney disease; I50.9 Heart failure, unspecified; I49.5 Sick sinus syndrome; S81.801A Unspecified open wound, right lower leg, initial encounter; I25.10 Atherosclerotic heart disease of native coronary artery without angina pectoris; N18.2 Chronic kidney disease, stage 2 (mild); E11.65 Type 2 diabetes mellitus with hyperglycemia; E11.51 Type 2 diabetes mellitus with diabetic peripheral angiopathy without gangrene; E11.22 Type 2 diabetes mellitus with diabetic chronic kidney disease; E78.5 Hyperlipidemia, unspecified; E87.5 Hyperkalemia; H91.90 Unspecified hearing loss, unspecified ear; Y83.5 Amputation of limb(s) as the cause of abnormal reaction of the patient, or of later complication, without mention of misadventure at the time of the procedure; I48.91 Unspecified atrial fibrillation; Z51.5 Encounter for palliative care; Z82.49 Family history of ischemic heart disease and other diseases of the circulatory system; Z83.3 Family history of diabetes mellitus; Z91.19 Patient's noncompliance with other medical treatment and regimen; Z95.0 Presence of cardiac pacemaker; Z95.1 Presence of aortocoronary bypass graft; Y92.89 Other specified places as the place of occurrence of the external cause; Z79.84 Long term (current) use of oral hypoglycemic drugs
CPT/HCPCS: 36415; 71045; 73700; 80048; 80053; 80202; 81001; 82140; 82962; 83036; 83605; 84132; 84484; 85007; 85025; 85027; 85610; 87040; 87077; 87081; 87147; 87186; 87205; 92610; 93005; 93306; 94640; 96361; 96365; 96366; 96375; 97110; 97116; 97163; 97530; G0378; J0690; J1815; J2001; J2543; J3480; J7060